=== PATIENT | female | born 1975 | race Caucasian/White ===

== ENCOUNTER → 2016-05-20 | Outpatient (CLI) | payer MEDICAID ==
[~2016-05-20] MED LIST: FLUO10CA29 PO; HYDR-3812 PO; METO-272 PO; ONDN4T PO
== END ==
LOC: PREOP 05:43
PROVIDERS: ATTEND Surgery
DX: Z01.818 Encounter for other preprocedural examination (principal); R10.13 Epigastric pain

== ENCOUNTER 2016-05-21 08:48 | Day surgery (SDC) | payer MEDICAID ==
[~2016-05-21] VITALS: Ht 160 cm; Wt 59.0 kg
[~2016-05-21 08:48] MED LIST changes: -HYDR-3812 PO; -ONDN4T PO
[2016-05-21] MEDS ORDERED: NS IV 500 ML 500 ML IV ONE (09:00)
[2016-05-21] MEDS ORDERED: NALOXONE 0.4 MG/ML 1 ML (NARCAN) VIAL IVP PRN ×2 (09:00→09:30)
[2016-05-21] MEDS ORDERED: FLUMAZENIL (ROMAZICON) 0.1 MG/ML 5 ML VIAL INJ PRN ×2 (09:00→09:30)
[2016-05-21] MEDS ORDERED: NS IV 500 ML 500 ML IV PRN (09:00)
[2016-05-21 09:23] VITALS: BP 129/88
[2016-05-21] MEDS ORDERED: MIDAZOLAM 2 MG/2 ML (VERSED) VIAL IVP PRN (09:30)
[2016-05-21] MEDS ORDERED: LIDOCAINE JELLY 2% (XYLOCAINE) 5 ML TUBE MM PRN (09:30)
[2016-05-21] MEDS ORDERED: fentaNYL INJECTION 100 MCG/2 ML AMP IVP PRN (09:30)
[2016-05-21] MEDS ORDERED: HURRICAINE EXT TUBE (BENZOCAINE) XX PRN (09:30)
[2016-05-21] MEDS ORDERED: LIDOCAINE JELLY 2% (XYLOCAINE) 5 ML TUBE ONE (10:23)
[2016-05-21] MEDS ORDERED: MIDAZOLAM 2 MG/2 ML (VERSED) VIAL ONE ×4 (10:24)
[2016-05-21] MEDS ORDERED: HURRICAINE EXT TUBE (BENZOCAINE) ONE (10:24)
[2016-05-21] MEDS ORDERED: fentaNYL INJECTION 100 MCG/2 ML AMP ONE (10:24)
[2016-05-21] MEDS: MIDAZOLAM 2 MG/2 ML (VERSED) VIAL IVP PRN ×3 (10:27→10:34)
[2016-05-21] MEDS: fentaNYL INJECTION 100 MCG/2 ML AMP IVP PRN ×2 (10:28→10:31)
--- NOTE | 2016-05-21 10:28 | Pre-Op Note & Conscious Sedat ---
Pre-Operative Progress Note H&P Reviewed The H&P was reviewed, patient examined and no changes noted. Date H&P Reviewed: May 21, 2016 Time H&P Reviewed: 10:26 Pre-Op Diagnosis: Epigastric pain Conscious Sedation Pre-Proced ASA Class: 2 Airway Mallampati Classification: ([place] appropriate class) I. II. III, IV Lungs Heart ASA score ASA 1: a normal healthy patient ASA 2: a patient with a mild systemic disease (mid diabetes, controlled hypertension, obesity ASA 3: a patient with a severe systemic disease that limits activity (angina , COPD, prior Myocardial infarction) ASA 4: a patient with an incapacitating disease that is a constant threat to life (CHF, renal failure) ASA 5: a moribund patient not expected to survive 24 hrs. (ruptured aneurysm) ASA 6: a declared brain patient whose organs are being harvested. For emergent operations, add the letter E after the classification Grade 2 Sedation Plan: Discussed options with patient/fam Note The patient is an appropriate candidate to undergo the planned procedure, sedation, and anesthesia. The patient immediately re-assessed prior to indication. SHERRI MOSER MD May 21, 2016 10:28 am
--- NOTE | 2016-05-21 10:43 | Progress Note-Post Operative ---
Post-Operative Progess Note Pre-Operative Diagnosis Epigastric pain Post-Operative Diagnosis mild distal gastritis Post-Op Procedure Note Date of Procedure: May 21, 2016 Name of Procedure: EGD with antral biopsy Anesthesia Type sedation Specimen(s) collected antral mucosa SHERRI MOSER MD May 21, 2016 10:43 am
--- NOTE | 2016-05-21 10:45 | Discharge Inst-Simple/Standard ---
Discharge Inst-Standard Discharge Medications New, Converted or Re-Newed RX: Other Patient Instructions/Follow Up Plan of Care/Instructions/FU: please call for Zofran formalin tablets every 6 hours when necessary a total of 10 with no refills.please have a report for HIDA scan next the at 745 Activity as Tolerated: Yes Discharge Diet: No Restrictions SHERRI MOSER MD May 21, 2016 10:45 am
[2016-05-21 11:10] VITALS: BP 106/69
[2016-05-21 11:40] VITALS: BP 114/75
[2016-05-21 11:48] VITALS: BP 114/75
--- NOTE | 2016-05-22 09:08 | PROCEDURE REPORT ---
PROCEDURE PHYSICIAN: SHERRI MOSER DATE OF PROCEDURE: 05/21/2016 PROCEDURE: Upper GI endoscopy with antral biopsy. SURGEON: Dr. Moser. INDICATION FOR THE PROCEDURE: This lady has been evaluated for upper abdominal pain radiating to the back, associated with nausea. As part of the work-up, an upper endoscopy was felt to be reasonable. Informed consent was obtained after reviewing the procedure in detail. DESCRIPTION OF PROCEDURE: She was placed in left lateral decubitus position and her vital signs were monitored. Conscious sedation was achieved using Versed and fentanyl. Her oropharynx was anesthetized with Cetacaine and the flexible gastroscope introduced down the esophagus, past the stomach, into the proximal duodenum. FINDINGS: ESOPHAGUS: Normal. STOMACH: Very mild distal gastritis. An antral biopsy was obtained for Helicobacter status. DUODENUM: Normal. She tolerated the procedure well and was taken back to the nursing area in stable condition. IMPRESSION: 1. Epigastric pain. 2. Mild distal gastritis. NOTE: A HIDA scan will be obtained for further evaluation. Job ID: [id number] Dictated Date: 05/21/2016 10:41:55 Furniture Packer Date: 05/22/2016 09:05:30 / maricruz NUNEZ
== END 2016-05-21 11:50 | disposition home or self-care (01) ==
LOC: SDC 08:48
PROVIDERS: ATTEND Surgery
DX: K29.70 Gastritis, unspecified, without bleeding (principal)
CPT/HCPCS: 84703

== ENCOUNTER → 2016-05-28 | Outpatient (CLI) | payer MEDICAID ==
[~2016-05-28] MED LIST changes: +CATHETER FLUSH 10 ML SYR IV PRN; +HYDR-3812 PO; +ONDN4T PO
--- NOTE | 2016-05-28 10:17 | Diagnostic Imaging Report ---
EXAMINATION: HIDA with EF measurements Indication: Abdominal pain TECHNIQUE: After the intravenous administration of 5.2 mCi of Tc 99m Choletec, imaging over the abdomen was obtained. This was followed by administration of Ensure orally to stimulate intrinsic CCK secretion, followed by continued imaging with ejection fraction measured. FINDINGS: There is homogeneous uptake in the liver with prompt bile duct and gallbladder filling seen. Bowel activity is seen at 15 minutes. Based on further imaging and gallbladder area of interest activity measurements after the administration of ensure, the gallbladder ejection fraction is estimated at 42%. IMPRESSION: 1. Normal hepatobiliary uptake and Gallbladder filling. 2. Borderline gallbladder ejection fraction. Correlate clinically. Dictated by: Dictated on workstation # [id number]
== END ==
LOC: CARD 07:25
PROVIDERS: ATTEND Nurse Practitioner Community Health
DX: R11.2 Nausea with vomiting, unspecified (principal)
CPT/HCPCS: 78227

== ENCOUNTER 2016-06-18 05:34 | Outpatient (CLI) | payer MEDICAID ==
[~2016-06-18] VITALS: Ht 160 cm; Wt 59.0 kg
[~2016-06-18 05:34] MED LIST changes: -CATHETER FLUSH 10 ML SYR IV PRN; -HYDR-3812 PO; -ONDN4T PO
[2016-06-18] MEDS ORDERED: ONDN4T PO (14:01)
[2016-06-24] MEDS ORDERED: HYDR-3812 PO (13:07)
== END 2016-06-18 14:09 ==
LOC: PREOP 05:34
PROVIDERS: ATTEND Surgery
DX: Z01.818 Encounter for other preprocedural examination (principal); K82.8 Other specified diseases of gallbladder

== ENCOUNTER 2016-06-24 10:44 | Day surgery (SDC) | payer MEDICAID ==
[~2016-06-24] VITALS: Ht 160 cm; Wt 59.0 kg
[~2016-06-24 10:44] MED LIST changes: +ONDN4T PO
[2016-06-24] MEDS ORDERED: ceFAZolin 1,000 MG (ANCEF) VIAL ONE (11:03)
[2016-06-24] MEDS ORDERED: NS (IVPB) 50 ML ONE (11:04)
[2016-06-24] MEDS ORDERED: metroNIDAZOLE 500MG/100ML IVPB 100 ML ONE (11:04)
[2016-06-24] MEDS ORDERED: ceFAZolin 1 GM/NS 50 ML IVPB IV ONE ×2 (11:15)
[2016-06-24] MEDS ORDERED: metroNIDAZOLE 500 MG/100 ML IVPB (PRE-MIX) IV ONE (11:15)
[2016-06-24] MEDS ORDERED: BUP/EPI 0.25% 1:200,000 (MARCAINE) 30 ML VIAL ONE (11:20)
--- NOTE | 2016-06-24 11:22 | Progress Note-Pre Operative ---
Pre-Operative Progress Note H&P Reviewed The H&P was reviewed, patient examined and no changes noted. Date H&P Reviewed: Jun 24, 2016 Time H&P Reviewed: 11:22 Pre-Operative Diagnosis: Chronic acalculous cholecystitis SHERRI MOSER MD Jun 24, 2016 11:22 am
[2016-06-24 11:30] VITALS: BP 119/84
[2016-06-24 11:31] LABS: BASOPHILS # (AUTO) 0.1 10^3/uL (0.0-0.1); BASOPHILS % (AUTO) 2 % (0-10); EOSINOPHILS # (AUTO) 0.3 10^3/uL (0.0-0.3); EOSINOPHILS % (AUTO) 4 % (0-10); LYMPHOCYTES # (AUTO) 1.5 X 10^3 (1.0-4.0); LYMPHOCYTES % (AUTO) 24 % (12-44); MEAN CORPUSCULAR HEMOGLOBIN 25 PG (25-34); MEAN CORPUSCULAR HGB CONC 32 G/DL (32-36); MEAN CORPUSCULAR VOLUME 78 FL (80-99); MEAN PLATELET VOLUME 9.7 FL (7.4-10.4); MONOCYTES # (AUTO) 0.5 X 10^3 (0.0-1.0); MONOCYTES % (AUTO) 8 % (0-12); NEUTROPHILS # (AUTO) 3.7 X 10^3 (1.8-7.8); NEUTROPHILS % (AUTO) 62 % (42-75); PLATELET COUNT 302 10^3/uL (130-400); RED BLOOD COUNT 4.28 10^6/uL (4.35-5.85); RED CELL DISTRIBUTION WIDTH 15.9 % (10.0-14.5)
[2016-06-24 11:49] LABS: ALANINE AMINOTRANSFERASE 13 U/L (0-55); ALBUMIN 4.3 G/DL (3.2-4.5); ANION GAP 9 MMOL/L (5-14); ASPARTATE AMINO TRANSFERASE 19 U/L (5-34); BILIRUBIN,TOTAL 0.5 MG/DL (0.1-1.0); BLOOD UREA NITROGEN 13 MG/DL (7-18); BUN/CREATININE RATIO 17; CALCIUM 8.8 MG/DL (8.5-10.1); CARBON DIOXIDE 24 MMOL/L (21-32); CHLORIDE 108 MMOL/L (98-107); CREATININE SERUM 0.75 MG/DL (0.60-1.30); GFR ESTIMATED > 60; GLUCOSE 81 MG/DL (70-105); POTASSIUM 3.9 MMOL/L (3.6-5.0); SODIUM 141 MMOL/L (135-145); TOTAL PROTEIN 6.6 G/DL (6.4-8.2)
[2016-06-24] MEDS ORDERED: FAMOTIDINE 20MG/2ML IV (PEPCID) IV ONE (12:00)
[2016-06-24] MEDS: LACTATED RINGERS 1,000 ML IV PRN ×2 (12:04→12:25)
[2016-06-24] MEDS ORDERED: fentaNYL INJECTION 250 MCG/5 ML AMP ONE (12:10)
[2016-06-24] MEDS ORDERED: MIDAZOLAM 2 MG/2 ML (VERSED) VIAL ONE (12:10)
[2016-06-24] MEDS ORDERED: ONDANSETRON 4 MG/2 ML (SDV) Z0FRAN ONE ×2 (12:46→13:31)
[2016-06-24] MEDS ORDERED: SEVOFLURANE (ULTANE) 15 ML INHAL SOLN ONE (12:46)
[2016-06-24] MEDS ORDERED: ROCURONIUM 50 MG/5 ML (ZEMURON) VIAL IV ONE (12:46)
[2016-06-24] MEDS ORDERED: SUCCINYLCHOLINE INJ 100 MG/5 ML SYR ONE (12:46)
[2016-06-24] MEDS ORDERED: proPOfol 200 MG/20 ML (DIPRIVAN) VIAL IV ONE (12:46)
[2016-06-24] MEDS ORDERED: LIDOCAINE PF 2% 10 ML (XYLOCAINE) AMP ONE (12:46)
[2016-06-24] MEDS ORDERED: LIDOCAINE JELLY 2% (XYLOCAINE) 5 ML TUBE ONE (12:46)
[2016-06-24] MEDS ORDERED: LACTATED RINGERS 1,000 ML IV ONE ×2 (12:46→12:54)
[2016-06-24] MEDS ORDERED: GLYCOPYRROLATE 0.2 MG/ML (ROBINUL) 2 ML VIAL ONE (12:54)
[2016-06-24] MEDS ORDERED: NEOSTIGMINE (BLOXIVERZ ) 1 MG/1ML 10 ML VIAL ONE (12:54)
--- NOTE | 2016-06-24 13:06 | Progress Note-Post Operative ---
Post-Operative Progess Note Pre-Operative Diagnosis Chronic acalculous cholecystitis Post-Operative Diagnosis Same Post-Op Procedure Note Date of Procedure: Jun 24, 2016 Name of Procedure: robotic-assisted cholecystectomy Anesthesia Type Gen. Estimated blood loss (mL): minimal Specimen(s) collected gallbladder SHERRI MOSER MD Jun 24, 2016 1:05 pm
[2016-06-24] MEDS ORDERED: HYDR-3812 PO (13:07)
--- NOTE | 2016-06-24 13:08 | Discharge Inst-Simple/Standard ---
Discharge Inst-Standard Discharge Medications New, Converted or Re-Newed RX: RX on Chart Patient Instructions/Follow Up Plan of Care/Instructions/FU: dressings off in 48 hours. Incentive spirometry. Follow-up in 3 weeks Activity as Tolerated: Yes Discharge Diet: No Restrictions SHERRI MOSER MD Jun 24, 2016 1:07 pm
[2016-06-24] MEDS ORDERED: ONDANSETRON 4 MG/2 ML (SDV) Z0FRAN IVP PRN (13:30)
[2016-06-24] MEDS ORDERED: MEPERIDINE (DEMEROL) INJ 50 MG/ML IVP PRN (13:30)
[2016-06-24] MEDS ORDERED: morphine INJ 10 MG/ML 1ML (SYR OR VIAL) ONE (13:30)
[2016-06-24] MEDS: morphine INJ 10 MG/ML 1ML (SYR OR VIAL) IVP PRN ×2 (13:33→13:42)
[2016-06-24] MEDS ORDERED: MEPERIDINE (DEMEROL) INJ 50 MG/ML ONE (13:46)
[2016-06-24 14:15] VITALS: BP 119/81
[2016-06-24 14:45] VITALS: BP 124/76
[2016-06-24] MEDS ORDERED: ONDANSETRON 4 MG/2 ML (SDV) Z0FRAN IVP ONE (14:45)
[2016-06-24 15:15] VITALS: BP 124/78
[2016-06-24] MEDS ORDERED: METOCLOPRAMIDE INJ 10 MG/2 ML (REGLAN) ONE (15:41)
[2016-06-24] MEDS ORDERED: METOCLOPRAMIDE INJ 10 MG/2 ML (REGLAN) IVP ONE (15:45)
[2016-06-24 16:40] VITALS: BP 124/78
--- NOTE | 2016-06-25 13:09 | OPERATIVE REPORT ---
PROCEDURE PHYSICIAN: SHERRI MOSER DATE OF PROCEDURE: 06/24/2016 PREOPERATIVE DIAGNOSIS: Chronic, acalculous cholecystitis. POSTOPERATIVE DIAGNOSIS: Chronic, acalculous cholecystitis. OPERATION: Robotic assisted cholecystectomy. SURGEON: Maurilio. ANESTHESIA: General anesthesia. BLOOD LOSS: Minimal. FLUIDS: 700 mL of crystalloids. TYPE OF WOUND: Type II (clean/contaminant wound). INDICATION FOR THE PROCEDURE: This lady presented with typical symptoms due to chronic acalculous cholecystitis. Therefore, she was offered robotic assisted cholecystectomy. Informed consent was obtained after reviewing the operative details and complications of wound infection, bile leak and persistence of her symptoms. DESCRIPTION OF PROCEDURE: She was placed supine on the operating table and general anesthesia induced using an endotracheal tube. A gram of Ancef and 500 mg of Flagyl were administered intravenously as prophylaxis against infection. Sequential compression devices were placed around her legs, to minimize the risk of venous thrombosis. Abdomen was prepared and draped in the usual sterile manner. Pneumoperitoneum was established using a Veress needle introduced over the supraumbilical region. A 12 mm trocar was placed and anatomy visualized using the 3 dimensional, high definition laparoscope associated with da Radhika system. Under direct view, I placed in the 8 mm cannula over each side of the abdomen, followed by a 5 mm trocar over the left upper quadrant. The patient was then turned into reverse Trendelenburg position with the right side tilted up. The robotic system was undocked and placed. The fundus of the gallbladder was retracted using a grasper introduced over the left upper quadrant and the infundibulum grasped with Cadiere forceps. Peritoneum overlying Calot's triangle was incised using hook cautery, delineating the cystic duct and artery. Both were divided between locking clips. Cholecystectomy was then completed using hook cautery. The gallbladder then placed in an Endo Catch bag and removed via the supraumbilical trocar site. The fascia over this incision was then closed using number 1 Vicryl. Skin incisions were closed using 4-0 Vicryl, in a subcuticular fashion. 0.25% Marcaine with epinephrine was infiltrated along the incisions, both preemptively and at the conclusion of the operation. She tolerated the procedure well, was extubated in the operating room and taken to the recovery room in a stable condition. [place], sponges, and instruments were correct at the end of the operation. Job ID: [id number] Dictated Date: 06/24/2016 13:04:45 Guitar Maker Hand Date: 06/25/2016 13:04:19 / sonia NUNEZ
== END 2016-06-24 16:40 | disposition home or self-care (01) ==
LOC: SDC 10:44
PROVIDERS: ATTEND Surgery
DX: K81.1 Chronic cholecystitis (principal); Z11.2 Encounter for screening for other bacterial diseases
CPT/HCPCS: 36415; 80053; 84703; 85025; 87081; 88304; 94664

== ENCOUNTER → 2017-04-23 | Outpatient (CLI) | payer MEDICAID ==
[~2017-04-23] MED LIST changes: +HYDR-3812 PO; -METO-272 PO; +METO-370 PO
--- NOTE | 2017-04-27 17:59 | Diagnostic Imaging Report ---
Bilateral screening mammogram 2D views with tomosynthesis. The current study was also evaluated with a Computer Aided Detection (CAD) system. INDICATION: Screening. No current complaints stated on the questionnaire. COMPARISON: None. This is a baseline exam. FINDINGS: The breasts are composed of heterogeneously dense parenchyma which may decrease mammographic sensitivity. There is a 7 mm asymmetry seen along the upper aspect of the left breast. This is only seen on the MLO view. The right breast demonstrates no definite focal mass. IMPRESSION: Dense breasts. Asymmetry in the upper left breast. Focal compression views and bilateral ultrasound evaluation is recommended. ACR BI-RADS Category 0: Incomplete. (Needs additional imaging evaluation). Result letter will be mailed to the patient. Note: At least 10% of breast cancer is not imaged by mammography. Dictated on workstation # [id number]
== END ==
LOC: RAD 15:11
PROVIDERS: ATTEND Nurse Practitioner Family
DX: Z12.31 Encounter for screening mammogram for malignant neoplasm of breast (principal)

== ENCOUNTER → 2017-06-11 | Outpatient (CLI) | payer MEDICAID ==
[~2017-06-11] MED LIST changes: +ACHD5005 PO; -HYDR-3812 PO
--- NOTE | 2017-06-11 19:25 | Diagnostic Imaging Report ---
INDICATION: Left breast density. Patient presents for additional views. Correlation is made with prior study from 04/23/2017. The current study was also evaluated with a Computer Aided Detection (CAD) system. Patient returned and spot compression MLO and conventional mediolateral 3-D mammography was performed. The left breast remains heterogeneously dense. No mass or malignant appearing microcalcifications are seen. Area of density in the superior left breast appears to represent fibroglandular tissue but further evaluation with ultrasound is recommended. IMPRESSION: No suspicious abnormality seen. Even so, ultrasound of the upper left breast is recommended for further evaluation. ACR BI-RADS Category 0: Incomplete. (Needs additional imaging evaluation). Result letter will be mailed to the patient. Note: At least 10% of breast cancer is not imaged by mammography. Dictated by: Dictated on workstation # [id number]
--- NOTE | 2017-06-11 20:23 | Diagnostic Imaging Report ---
INDICATION: Left breast density. The study is performed for further evaluation. Correlation is made with screening mammogram from 04/23/2017 and diagnostic mammogram from 06/11/2017. FINDINGS: Sonographic interrogation of the upper left breast was performed. No solid or cystic masses are detected. IMPRESSION: No sonographic abnormality is identified. The patient may return to routine annual screening mammography. ACR BI-RADS Category 1: Negative. Dictated by: Dictated on workstation # [id number]
== END ==
LOC: RAD 12:17
PROVIDERS: ATTEND Nurse Practitioner Family
DX: R92.2 Inconclusive mammogram (principal)
CPT/HCPCS: 76642

== ENCOUNTER 2017-08-13 09:28 | Emergency (ER) | payer MEDICAID ==
[~2017-08-13] VITALS: Ht 160 cm; Wt 59.4 kg
[2017-08-13 10:16] LABS: BASOPHILS # (AUTO) 0.1 10^3/uL (0.0-0.1); BASOPHILS % (AUTO) 2 % (0-10); EOSINOPHILS # (AUTO) 0.1 10^3/uL (0.0-0.3); EOSINOPHILS % (AUTO) 2 % (0-10); HEMATOCRIT 34 % (35-52); HEMOGLOBIN 10.6 G/DL (11.5-16.0); LYMPHOCYTES # (AUTO) 1.6 X 10^3 (1.0-4.0); LYMPHOCYTES % (AUTO) 22 % (12-44); MEAN CORPUSCULAR HEMOGLOBIN 23 PG (25-34); MEAN CORPUSCULAR HGB CONC 31 G/DL (32-36); MEAN CORPUSCULAR VOLUME 76 FL (80-99); MEAN PLATELET VOLUME 9.4 FL (7.4-10.4); MONOCYTES # (AUTO) 0.5 X 10^3 (0.0-1.0); MONOCYTES % (AUTO) 8 % (0-12); NEUTROPHILS # (AUTO) 4.6 X 10^3 (1.8-7.8); NEUTROPHILS % (AUTO) 66 % (42-75); PLATELET COUNT 363 10^3/uL (130-400); RED BLOOD COUNT 4.53 10^6/uL (4.35-5.85); RED CELL DISTRIBUTION WIDTH 18.2 % (10.0-14.5); WHITE BLOOD COUNT 6.9 10^3/uL (4.3-11.0)
[2017-08-13 10:33] LABS: ALANINE AMINOTRANSFERASE 12 U/L (0-55); ALBUMIN 4.4 GM/DL (3.2-4.5); ALKALINE PHOSPHATASE 69 U/L (40-136); BILIRUBIN,TOTAL 0.4 MG/DL (0.1-1.0); BUN/CREATININE RATIO 19; CARBON DIOXIDE 27 MMOL/L (21-32); CHLORIDE 108 MMOL/L (98-107); CREATININE SERUM 0.69 MG/DL (0.60-1.30); GFR ESTIMATED > 60; GLUCOSE 82 MG/DL (70-105); POTASSIUM 3.8 MMOL/L (3.6-5.0); SODIUM 142 MMOL/L (135-145); TOTAL PROTEIN 6.9 GM/DL (6.4-8.2)
[2017-08-13] MEDS ORDERED: NS IV 1000 ML 1,000 ML IV ONE (12:07)
--- NOTE | 2017-08-13 12:10 | ED GI ---
General Chief Complaint: Abdominal/GI Problems Stated Complaint: STOMACH PAIN,DIAHRREA Nursing Triage Note: PT AMBULATES TO ROOM 9 PT CO OF ABD PAIN AND CRAMPING FOR 2 WEEKS PT STATES WAS SEEN AT [facility] YESTERDAY, STATES HAD LAB AND WAS GIVEN ZANTAC AND LOMOTIL FOR DIARRHEA, PT STATES HAD 2 DIARRHEA STOOLS TODAY BUT BETTER. HAD SUDDEN ONSET OF CRAMPING ABD PAIN. 12/24. Sepsis Screen: No Definite Risk Source of Information: Patient Exam Limitations: No Limitations History of Present Illness Date Seen by Provider: Aug 13, 2017 Time Seen by Provider: 11:40 Initial Comments 42-year-old female patient presents to the emergency department complaints of periumbilical abdominal cramping and lower abdominal pain for 2 weeks. Patient was seen at the walk-in clinic at [facility] 2 weeks ago with stool cultures done. All cultures were negative. Patient was seen at [facility] yesterday and given prescriptions for Zantac and Lomotil. Labs done yesterday, but does not known the results. Timing/Duration: Constant, Other (Two-week onset) Severity/Quality: Cramping Location: Periumbilical Radiation: Other (Suprapubic) Activities at Onset: None Modifying Factors: Worsens With Other (No improvement with lomotil or Zantac) Allergies and Home Medications Allergies Coded Allergies: No Known Drug Allergies (Unverified , 05/01/16) Home Medications Ciprofloxacin HCl 500 Mg Tablet, 500 MG PO BID Prescribed by: STEFANI CLEANING on 08/13/17 1323 Fluoxetine HCl 10 Mg Capsule, 10 MG PO DAILY, (Reported) Hydrocodone Bit/Acetaminophen 1 Each Tablet, 1-2 TAB PO 4-6HR PRN for PAIN Prescribed by: SHERRI MOSER on 06/24/16 1307 Hyoscyamine Sulfate 0.125 Mg Tab.subl, 0.125 MG SL Q6H PRN for SPASMS Prescribed by: STEFANI CLEANING on 08/13/17 1323 Metoprolol Succinate 50 Mg Tab.er.24h, 50 MG PO HS, (Reported) Metronidazole 500 Mg Tablet, 500 MG PO TID Prescribed by: STEFANI CLEANING on 08/13/17 1323 Ondansetron 8 Mg Tab.rapdis, 8 MG PO Q6H PRN for NAUSEA/VOMITING-1ST LINE Prescribed by: STEFANI CLEANING on 08/13/17 1323 Ondansetron HCl 4 Mg Tab, 4 MG PO QID PRN for NAUSEA/VOMITING, (Reported) Patient Home Medication List Home Medication List Reviewed: Yes Review of Systems Constitutional: No chills, No diaphoresis, No dizziness, No fever, No malaise EENTM: No Symptoms Reported Respiratory: No Symptoms Reported Cardiovascular: No Symptoms Reported Gastrointestinal: See HPI, Denies Abdomen Distended, Abdominal Pain, Denies Blood Streaked Stools, Nausea (intermittent nausea the last 2 days), Denies Rectal Bleeding, Denies Vomiting Genitourinary: Denies Burning, Denies Discharge, Denies Frequency, Denies Flank Pain, Denies Hematuria, Denies Pain Musculoskeletal: no symptoms reported Skin: no symptoms reported Psychiatric/Neurological: No Symptoms Reported All Other Systems Reviewed Negative Unless Noted: Yes (Negative excepted noted.) Past Aarufrk-Sagdsc-Dtcoza Hx Patient Social History Alcohol Use: Denies Use Recreational Drug Use: No Smoking Status: Current Someday Smoker Type Used: Cigarettes Recent Foreign Travel: No Contact w/Someone Who Travel: No Recent Infectious Disease Expo: No Recent Hopitalizations: No Physical Abuse: No Sexual Abuse: No Immunizations Up To Date Tetanus Booster (TDap): More than 5yrs Seasonal Allergies Seasonal Allergies: No Surgeries History of Surgeries: Yes (LEEP) Surgeries: Tubal Ligation Respiratory History of Respiratory Disorde: No Currently Using CPAP: No Currently Using BIPAP: No Cardiovascular History of Cardiac Disorders: Yes Cardiac Disorders: Hypertension Neurological History of Neurological Disord: No Reproductive System : No Hx Reproductive Disorders: No (LEEP) Sexually Transmitted Disease: No HIV/AIDS: No Female Reproductive Disorders: Denies STUDY MANAGER History: Tubal Ligation Gastrointestinal History of Gastrointestinal Di: Yes Gastrointestinal Disorders: Gall Bladder Disease Musculoskeletal History of Musculoskeletal Dis: No Endocrine History of Endocrine Disorders: No HEENT Loss of Vision: Denies Hearing Impairment: Denies Cancer History of Cancer: No Psychosocial History of Psychiatric Problem: Yes Behavioral Health Disorders: Depression Suicide Risk Score: 0 Integumentary History of Skin or Integumenta: No Blood Transfusions History of Blood Disorders: No Adverse Reaction to a Blood Tr: No Reviewed Nursing Assessment Reviewed/Agree w Nursing PMH: Yes Family Medical History Significant Family History: No Pertinent Family Hx Physical Exam Vital Signs VS - Last 72 Hours, by Label 3/30/18 09:30 Temp 97.0 Pulse 83 Resp 18 B/P (MAP) 174/108 (130) Pulse Ox 99 Capillary Refill : Less Than 3 Seconds General Appearance: WD/WN, no apparent distress HEENT: PERRL/EOMI, pharynx normal Neck: supple, normal inspection Respiratory: lungs clear, normal breath sounds, no respiratory distress, no accessory muscle use Cardiovascular: normal peripheral pulses, regular rate, rhythm, no edema, no murmur Gastrointestinal: normal bowel sounds, soft, no organomegaly, No distended, guarding (weak (+) guarding in the RLQ and suprapubically.) Extremities: no pedal edema, normal capillary refill Back: normal inspection, no CVA tenderness Neurologic/Psychiatric: alert, normal mood/affect, oriented x 3 Skin: normal color, warm/dry Progress/Results/Core Measures Results/Orders Lab Results Laboratory Tests Test 08/13/17 09:40 08/13/17 10:00 Range/Units Urine Color YELLOW Urine Clarity CLEAR Urine pH 8 5-9 Urine Specific Bryant 1.010 L 1.016-1.022 Urine Protein NEGATIVE NEGATIVE Urine Glucose (UA) NEGATIVE NEGATIVE Urine Ketones NEGATIVE NEGATIVE Urine Nitrite NEGATIVE NEGATIVE Urine Bilirubin NEGATIVE NEGATIVE Urine Urobilinogen NORMAL NORMAL MG/DL Urine Leukocyte Esterase NEGATIVE NEGATIVE Urine RBC (Auto) NEGATIVE NEGATIVE Urine RBC NONE /HPF Urine WBC NONE /HPF Urine Squamous Epithelial Cells 2-5 /HPF Urine Crystals NONE /LPF Urine Bacteria TRACE /HPF Urine Casts NONE /LPF Urine Mucus NEGATIVE /LPF Urine Culture Indicated NO White Blood Count 6.9 4.3-11.0 10^3/uL Red Blood Count 4.53 4.35-5.85 10^6/uL Hemoglobin 10.6 L 11.5-16.0 G/DL Hematocrit 34 L 35-52 % Mean Corpuscular Volume 76 L 80-99 FL Mean Corpuscular Hemoglobin 23 L 25-34 PG Mean Corpuscular Hemoglobin Concent 31 L 32-36 G/DL Red Cell Distribution Width 18.2 H 10.0-14.5 % Platelet Count 363 130-400 10^3/uL Mean Platelet Volume 9.4 7.4-10.4 FL Neutrophils (%) (Auto) 66 42-75 % Lymphocytes (%) (Auto) 22 12-44 % Monocytes (%) (Auto) 8 0-12 % Eosinophils (%) (Auto) 2 0-10 % Basophils (%) (Auto) 2 0-10 % Neutrophils # (Auto) 4.6 1.8-7.8 X 10^3 Lymphocytes # (Auto) 1.6 1.0-4.0 X 10^3 Monocytes # (Auto) 0.5 0.0-1.0 X 10^3 Eosinophils # (Auto) 0.1 0.0-0.3 10^3/uL Basophils # (Auto) 0.1 0.0-0.1 10^3/uL Sodium Level 142 135-145 MMOL/L Potassium Level 3.8 3.6-5.0 MMOL/L Chloride Level 108 H 98-107 MMOL/L Carbon Dioxide Level 27 21-32 MMOL/L Anion Gap 7 5-14 MMOL/L Blood Urea Nitrogen 13 7-18 MG/DL Creatinine 0.69 0.60-1.30 MG/DL Estimat Glomerular Filtration Rate > 60 BUN/Creatinine Ratio 19 Glucose Level 82 70-105 MG/DL Calcium Level 9.0 8.5-10.1 MG/DL Total Bilirubin 0.4 0.1-1.0 MG/DL Aspartate Amino Transf (AST/SGOT) 18 5-34 U/L Alanine Aminotransferase (ALT/SGPT) 12 0-55 U/L Alkaline Phosphatase 69 40-136 U/L Total Protein 6.9 6.4-8.2 GM/DL Albumin 4.4 3.2-4.5 GM/DL Lipase 32 8-78 U/L My Orders Orders - STEFANI CLEANING Ct Abdomen/Pelvis W (08/13/17 12:07) Ns Iv 1000 Ml (Sodium Chloride 0.9%) (08/13/17 12:07) Hyoscyamine Sl Tablet (Levsin Sl Tablet) (08/13/17 12:15) Lipase (08/13/17 12:10) Ua Culture If Indicated (08/13/17 12:10) Iohexol Injection (Omnipaque 350 Mg/Ml 1 (08/13/17 12:15) Ns (Ivpb) (Sodium Chloride 0.9%) (08/13/17 12:15) Contrast Received (Contrast Received) (08/13/17 12:30) Medications Given in ED Current Medications Medications Dose Ordered Sig/Bo Route Start Time Stop Time Status Last Admin Dose Admin Hyoscyamine Sulfate 0.125 mg ONCE ONCE PO 08/13/17 12:15 08/13/17 12:16 DC 08/13/17 12:46 0.125 MG Iohexol 100 ml ONCE ONCE IV 08/13/17 12:15 08/13/17 12:17 DC 08/13/17 12:32 100 ML Sodium Chloride 250 ml ONCE ONCE IV 08/13/17 12:15 08/13/17 12:17 DC 08/13/17 12:33 80 ML Sodium Chloride 1,000 ml @ 0 mls/hr Q0M ONCE IV 08/13/17 12:07 08/13/17 12:08 DC 08/13/17 12:46 1,000 MLS/HR Vital Signs/I&O Vital Sign - Last 12Hours 08/13/17 09:30 Temp 97.0 Pulse 83 Resp 18 B/P (MAP) 174/108 (130) Pulse Ox 99 Blood Pressure Mean: 130 Diagnostic Imaging Diagonstic Imaging: CT Plain Films/CT/US/NM/MRI: abdomen, pelvis Comments INDICATION: Abdominal pain and diarrhea. COMPARISON: None. FINDINGS: The lung bases are clear. There is diffuse hepatic steatosis. No focal hepatic mass is seen. The gallbladder is not visualized. The portal vein enhances normally. There is no biliary dilatation. The pancreas, spleen, and adrenal glands appear unremarkable. There is a probable 10 mm cyst in the right kidney. The kidneys are otherwise unremarkable. The appendix appears normal. There is a moderate amount of stool in the colon. There is some mild thickening of the left colonic wall which may be due to incomplete distention, although mild colitis would be difficult to entirely exclude. There is fluid-filled nondistended small bowel. There is no evidence of bowel obstruction. The uterus and adnexa appear unremarkable. There is no free fluid, free air, or adenopathy. The abdominal aorta appears unremarkable. Osseous structures appear unremarkable. IMPRESSION: 1. There is mild thickening of the left colonic wall, which may be due to incomplete distention although mild nonspecific colitis would be difficult to entirely exclude. There is some fluid-filled nondistended small bowel, also nonspecific but could be related to an enteritis. 2. Diffuse hepatic steatosis. 3. Probable small right renal cyst. 4. No additional abnormality is demonstrated. Dictated on workstation # [id number] Reviewed: Reviewed by Me (radiology report reviewed by me) Departure Communication (Admissions) Progress Notes Laboratory and diagnostic findings discussed with the patient. We'll plan for discharge to home with instructions for Levsin, Zofran, Cipro, and metronidazole. Patient to follow-up with [facility] for recheck. Also instructed to follow-up with Dr. Adrian for possible need of colonoscopy as an outpatient. Impression Impression: Primary Impression: Acute colitis Disposition: HOME, SELF-CARE Condition: Improved Departure-Patient Inst. Decision time for Depature: 13:18 Referrals: ANGELINE HACKETT DO (PCP) Primary Care Physician NEELAM STEIN (Family) Primary Care Physician TOMMIE ADRIAN DO Patient Instructions: Diarrhea in Adolescents and Adults Add. Discharge Instructions: All discharge instructions reviewed with patient and/or family. Voiced understanding. Medications as instructed. Tylenol extra strength over-the- counter as directed for pain. Ibuprofen 800 mg by mouth every 8 hours as needed for pain. Drink plenty of fluids. Rest. Clear liquid diet for 2 days, then increase diet slowly to a low residue diet (avoid fiber containing foods). Follow-up with your primary care provider for recheck as outpatient. Follow- up with Dr. Adrian for possible need of an outpatient colonoscopy. Call for appointment time Wednesday. Return to the emergency department for worsened. Scripts Ondansetron (Ondansetron Odt) 8 Mg Tab.rapdis 8 MG PO Q6H Y for NAUSEA/VOMITING-1ST LINE, #10 TAB 0 Refills Prov: STEFANI CLEANING 08/13/17 Hyoscyamine Sulfate (Hyoscyamine Sulfate) 0.125 Mg Tab.subl 0.125 MG SL Q6H Y for SPASMS, #20 TAB 0 Refills Prov: STEFANI CLEANING 08/13/17 Metronidazole (Metronidazole) 500 Mg Tablet 500 MG PO TID, #21 TAB 0 Refills Prov: STEFANI CLEANING 08/13/17 Ciprofloxacin HCl (Ciprofloxacin HCl) 500 Mg Tablet 500 MG PO BID, #14 TAB 0 Refills Prov: STEFANI CLEANING 08/13/17 Work/School Note: Work Release Form Date Seen in the Emergency Department: Aug 13, 2017 Return to Work: Aug 15, 2017 STEFANI CLEANING Aug 13, 2017 12:10
[2017-08-13] MEDS ORDERED: NS 250 ML (IVPB) BAG IV ONE (12:15)
[2017-08-13] MEDS ORDERED: IOHEXOL 350 MG/ML 100 ML (OMNIPAQUE 350) VIAL IV ONE (12:15)
[2017-08-13] MEDS ORDERED: HYOSCYAMINE 0.125 MG (LEVSIN) TAB PO ONE (12:15)
[2017-08-13 12:22] LABS: BILIRUBIN,URINE NEGATIVE (NEGATIVE); CLARITY,URINE CLEAR; COLOR,URINE YELLOW; GLUCOSE, URINE (UA) NEGATIVE (NEGATIVE); KETONES,URINE NEGATIVE (NEGATIVE); LEUKOCYTE ESTERASE ,URINE NEGATIVE (NEGATIVE); NITRITE,URINE NEGATIVE (NEGATIVE); PH,URINE 8 (5-9); PROTEIN,URINE NEGATIVE (NEGATIVE); UROBILINOGEN,URINE NORMAL (NORMAL)
[2017-08-13 12:29] LABS: BACTERIA,URINE TRACE /HPF
[2017-08-13] MEDS ORDERED: RECEIVED CONTRAST (Hold Metformin) IV SCH (12:30)
--- NOTE | 2017-08-13 13:00 | Diagnostic Imaging Report ---
PROCEDURE: CT abdomen and pelvis with contrast. TECHNIQUE: Multiple contiguous axial images were obtained through the abdomen and pelvis after administration of intravenous contrast. INDICATION: Abdominal pain and diarrhea. COMPARISON: None. FINDINGS: The lung bases are clear. There is diffuse hepatic steatosis. No focal hepatic mass is seen. The gallbladder is not visualized. The portal vein enhances normally. There is no biliary dilatation. The pancreas, spleen, and adrenal glands appear unremarkable. There is a probable 10 mm cyst in the right kidney. The kidneys are otherwise unremarkable. The appendix appears normal. There is a moderate amount of stool in the colon. There is some mild thickening of the left colonic wall which may be due to incomplete distention, although mild colitis would be difficult to entirely exclude. There is fluid-filled nondistended small bowel. There is no evidence of bowel obstruction. The uterus and adnexa appear unremarkable. There is no free fluid, free air, or adenopathy. The abdominal aorta appears unremarkable. Osseous structures appear unremarkable. IMPRESSION: 1. There is mild thickening of the left colonic wall, which may be due to incomplete distention although mild nonspecific colitis would be difficult to entirely exclude. There is some fluid-filled nondistended small bowel, also nonspecific but could be related to an enteritis. 2. Diffuse hepatic steatosis. 3. Probable small right renal cyst. 4. No additional abnormality is demonstrated. Dictated by: Dictated on workstation # [id number]
[2017-08-13] MEDS ORDERED: ONDA8TAB13 PO (13:23)
[2017-08-13] MEDS ORDERED: CIPR500T4 PO (13:23)
[2017-08-13] MEDS ORDERED: METR500T21 PO (13:23)
[2017-08-13] MEDS ORDERED: HYOS-19 SL (13:23)
[2017-08-13 13:57] VITALS: BP 174/108
== END 2017-08-13 13:47 | disposition home or self-care (01) ==
LOC: EDUNIT# 09:28 → ER 09:31
DX: K52.9 Noninfective gastroenteritis and colitis, unspecified (principal); I10 Essential (primary) hypertension; F32.9 Major depressive disorder, single episode, unspecified; F17.210 Nicotine dependence, cigarettes, uncomplicated; Z98.51 Tubal ligation status; Z87.448 Personal history of other diseases of urinary system
CPT/HCPCS: 36415; 74177; 80053; 81000; 83690; 85025; 96360

== ENCOUNTER 2017-12-21 07:30 | Emergency (ER) | payer MEDICAID ==
[~2017-12-21] VITALS: Ht 160 cm; Wt 59.0 kg
[~2017-12-21 07:30] MED LIST changes: +CIPR500T4 PO; +HYOS-19 SL; +METR500T21 PO; +ONDA8TAB13 PO
--- OUTSIDE RECORDS SUMMARY | 2017-12-21 07:40 | XMS REPORT ---
Author Author NEELAM STEIN [facility] Address [address] [place] [address] Care Team Providers Care Ribbon Cutter Name Role Phone NEELAM STEIN Unavailable PROBLEMS Type Condition ICD9-CM Code LUG09-GC Code Onset Dates Condition Status SNOMED Code Problem Fatigue, unspecified type R53.83 Active 45219508 Problem Esophageal spasm K22.4 Active 49987378 Problem Encounter to establish care Z76.89 Active 175731520 Problem Family history of diabetes mellitus Z83.3 Active 030872865 Problem Essential hypertension I10 Active 62287847 Problem Depression, unspecified depression type F32.9 Active 48659950 Problem Shantelle F30.9 Active 388069492 Problem Intestinal malabsorption, unspecified K90.9 Active 11432184 Problem Gastroesophageal reflux disease without esophagitis K21.9 Active 714868893 Problem Status post cholecystectomy Z90.49 Active 638660985 Problem Anxiety F41.9 Active 91856167 Problem Abnormal mammogram of left breast R92.8 Active 476852728 ALLERGIES No Information ENCOUNTERS Encounter Location Date Diagnosis [place] [address] [place] [address] 26149- 5088 Nov, Depression, unspecified depression type F32.9 [facility] [address] [place] [address] 83984- 9420 Aug, Depression, unspecified depression type F32.9 [facility] [address] [place] [id number] [place] [address] 81158- 5644 Aug, Colitis K52.9 and Shantelle F30.9 [place] [address] [place] [address] 81649- 8296 Aug, Intestinal malabsorption, unspecified K90.9 [place] [address] 12127- 9801 Jul, Intestinal malabsorption, unspecified K90.9 ; Diarrhea, unspecified R19.7 ; Anxiety F41.9 and Tobacco abuse Z72.0 [place] [address] 65796- 9494 Jul, [facility] [address] [id number] Jul, Diarrhea, unspecified type R19.7 [facility] [address] [address] Jul, Diarrhea, unspecified type R19.7 [facility] [address] [id number] May, Abnormal mammogram of left breast R92.[address] [id number] Apr, Abnormal mammogram of left breast R92.8 [facility] [address] [id number] Apr, [facility] [place] [place] [address] [id number] 04 Apr, 2017 Well woman exam with routine gynecological exam Z01.419 ; Screening breast examination Z12.31 ; High risk sexual behavior Z72.51 ; History of loop electrical excision procedure (LEEP) Z98.890 and History of abnormal cervical Pap smear Z87.898 [place] [address] 31167- 5331 15 Mar, 2017 Essential hypertension I10 [place] [address] 42640- 2966 13 Jan, 2017 Essential hypertension I10 and Family history of diabetes mellitus (DM) Z83.3 [place] [address] 93002- 6312 14 Jul, 2016 Gastroesophageal reflux disease without esophagitis K21.9 [place] [address] 21979- 2120 Jul, Status post cholecystectomy Z90.49 ; Essential hypertension I10 and Depression, unspecified depression type F32.9 [facility] [address] [place] [address] 15011- 6288 Jun, [facility] [address] [place] [address] 85104- 4934 Jun, Essential hypertension I10 [facility] [address] [place] [id number] [place] [address] 93214- 9130 Jun, [facility] [address] [place] [address] [id number] [place] [address] 87350- 1216 May, [facility] [address] [place] [address] [id number] [place] [address] 37943- 5161 Apr, [facility] [address] [place] [address] [id number] [place] [address] 22426- 9544 Apr, Other chest pain R07.89 ; Intractable vomiting with nausea, unspecified vomiting type R11.2 and Yeast vaginitis B37.3 [facility] [address] [place] [address] 71843- 8387 Apr, Other chest pain R07.89 [facility] [address] [place] [id number] [place] [address] 23781- 8037 Apr, Other chest pain R07.89 [facility]ALK [facility] [address] [place] [address] 13532 -0561 Apr, Bronchitis J40 [facility] [address] [place] [address] 05761- 8213 Dec, Essential hypertension I10 and Depression, unspecified depression type F32.9 [facility] [id number] [place] [address] [id number] Nov, Fatigue, unspecified type R53.83 and Essential hypertension I10 [facility] [address] [place] [address] 78332- 7964 Nov, Pelvic pain R10.2 and Menorrhagia with irregular cycle N92.1 [place] [address] [address] 07 Nov, 2015 Encounter to establish care Z76.89 ; Essential hypertension I10 ; Depression, unspecified depression type F32.9 ; Fatigue, unspecified type R53.83 and Family history of diabetes mellitus Z83.3 [place] [address] [address] Oct, Menorrhagia with irregular cycle N92.1 [place] [address] [place] [id number] [place] [address] 55770- 6699 September, Pelvic pain R10.2 and Menorrhagia with irregular cycle N92.1 [place] [address] [place] [address] 78163- 4373 September, Pelvic pain R10.2 and Menorrhagia with irregular cycle N92.1 [place] [address] [place] [address] 40835- 0771 Aug, Menorrhagia with irregular cycle N92.1 and Pelvic pain R10.2 IMMUNIZATIONS No Known Immunizations SOCIAL HISTORY Never Assessed REASON FOR VISIT medication question PLAN OF CARE VITAL SIGNS MEDICATIONS Medication Instructions Dosage Frequency Start Date End Date Duration Status Prozac 20 MG Orally Once a day 1 capsule in the morning 24h Aug, 30 day(s) Active RESULTS No Results PROCEDURES No Known procedures INSTRUCTIONS MEDICATIONS ADMINISTERED No Known Medications MEDICAL (GENERAL) HISTORY Type Description Date Medical History Hypertension Medical History Depression Medical History 04/28/17 Dense breast tissue, asymmetry inthe upper left breast, US recommended. Surgical History LEEP procedure Surgical History Tubal ligation Surgical History cholecystectomy 06/2016 Hospitalization History oral abcess
--- OUTSIDE RECORDS SUMMARY | 2017-12-21 07:41 | XMS REPORT ---
Author Author SHRUTHI BLANK [facility] Address [address] [place] [address] Care Team Providers Care Sql Programmer Analyst Name Role Phone SHRUTHI BLANK Unavailable PROBLEMS Type Condition ICD9-CM Code IWX00-BZ Code Onset Dates Condition Status SNOMED Code Problem Fatigue, unspecified type R53.83 Active 91945163 Problem Esophageal spasm K22.4 Active 34981250 Problem Encounter to establish care Z76.89 Active 631049826 Problem Family history of diabetes mellitus Z83.3 Active 972437018 Problem Essential hypertension I10 Active 38009742 Problem Depression, unspecified depression type F32.9 Active 03466960 Problem Shantelle F30.9 Active 534889835 Problem Intestinal malabsorption, unspecified K90.9 Active 04548831 Problem Gastroesophageal reflux disease without esophagitis K21.9 Active 296413815 Problem Status post cholecystectomy Z90.49 Active 482317659 Problem Anxiety F41.9 Active 24015268 Problem Abnormal mammogram of left breast R92.8 Active 526330436 ALLERGIES No Known Allergies ENCOUNTERS Encounter Location Date Diagnosis [place] [address] [place] [address] 91387- 8178 Nov, Depression, unspecified depression type F32.9 [facility] [address] [place] [address] 34403- 7396 Aug, Depression, unspecified depression type F32.9 [facility] [address] [place] [id number] [place] [address] 33299- 8723 Aug, Colitis K52.9 and Shantelle F30.9 [facility] [address] [address] Aug, Intestinal malabsorption, unspecified K90.9 [place] [address] [place] [address] [address]07[address] 8078 Jul, Intestinal malabsorption, unspecified K90.9 ; Diarrhea, unspecified R19.7 ; Anxiety F41.9 and Tobacco abuse Z72.0 [place] [address] 54470- 9721 Jul, [facility] [address] [id number] Jul, Diarrhea, unspecified type R19.7 [facility] [address] 8[address]14 [address]1826 Jul, Diarrhea, unspecified type R19.7 [facility] [place] [place] [address] [id number] May, Abnormal mammogram of left breast R92.[address] [id number] Apr, Abnormal mammogram of left breast R92.8 [facility] [address] [id number] Apr, [facility] [address] [id number] 04 Apr, 2017 Well woman exam with routine gynecological exam Z01.419 ; Screening breast examination Z12.31 ; High risk sexual behavior Z72.51 ; History of loop electrical excision procedure (LEEP) Z98.890 and History of abnormal cervical Pap smear Z87.898 [place] [address] 88750- 3126 15 Mar, 2017 Essential hypertension I10 [place] [address] 41322- 8484 13 Jan, 2017 Essential hypertension I10 and Family history of diabetes mellitus (DM) Z83.3 [place] [address] 62502- 3747 14 Jul, 2016 Gastroesophageal reflux disease without esophagitis K21.9 [place] [address] 46631- 7703 Jul, Status post cholecystectomy Z90.49 ; Essential hypertension I10 and Depression, unspecified depression type F32.9 [facility] [address] [place] [address] 18575- 4849 Jun, [facility] [address] [id number] [place] [address] 68685- 3109 Jun, Essential hypertension I10 [facility] [address] [place] [id number] [place] [address] 54882- 8340 Jun, [facility] [address] [place] [id number] [place] [address] 62932- 3963 May, [facility] [address] [place] [id number] [place] [address] 67225- 2833 Apr, [facility] [address] [place] [id number] [place] [address] 20621- 3092 Apr, Other chest pain R07.89 ; Intractable vomiting with nausea, unspecified vomiting type R11.2 and Yeast vaginitis B37.3 [facility] [address] [place] [address] 22281- 5664 Apr, Other chest pain R07.89 [facility] [address] [place] [address] [id number] [place] [address] 66695- 1364 Apr, Other chest pain R07.[address] [facility] WALK IN [facility] [address] [place] [address] 69414 -9516 Apr, Bronchitis J40 [facility] [address] [place] [address] 71544- 3303 Dec, Essential hypertension I10 and Depression, unspecified depression type F32.9 [facility] [id number] [place] [id number] Nov, Fatigue, unspecified type R53.83 and Essential hypertension I10 [facility] [address] [place] [address] 35421- 1019 Nov, Pelvic pain R10.2 and Menorrhagia with irregular cycle N92.1 [place] [address] [address] 07 Nov, 2015 Encounter to establish care Z76.89 ; Essential hypertension I10 ; Depression, unspecified depression type F32.9 ; Fatigue, unspecified type R53.83 and Family history of diabetes mellitus Z83.3 [place] [address] [address] Oct, Menorrhagia with irregular cycle N92.1 [place] [address] [place] [address] [id number] [place] [address] 22185- 9832 September, Pelvic pain R10.2 and Menorrhagia with irregular cycle N92.1 [place] [address] [place] [address] 05316- 5271 September, Pelvic pain R10.2 and Menorrhagia with irregular cycle N92.1 [place] [address] [place] [address] [id number] [place] [address] 14509- 4928 Aug, Menorrhagia with irregular cycle N92.1 and Pelvic pain R10.2 IMMUNIZATIONS No Known Immunizations SOCIAL HISTORY Never Assessed REASON FOR VISIT Diarrhea for 5 days. denies any vomiting. [email or web address] PLAN OF CARE Activity Details Follow Up prn Reason: VITAL SIGNS Height 63 in 2017-08-02 Weight 132.4 lbs 2017-08-02 Temperature 98.6 degrees Fahrenheit 2017-08-02 Heart Rate 74 bpm 2017-08-02 Respiratory Rate 20 2017-08-02 BMI 23.45 kg/m2 2017-08-02 Blood pressure systolic 136 mmHg 2017-08-02 Blood pressure diastolic 80 mmHg 2017-08-02 MEDICATIONS Medication Instructions Dosage Frequency Start Date End Date Duration Status Toprol XL 50 MG TAKE ONE (1) TABLET BY MOUTH DAILY... 90 Active Ondansetron 4 MG Orally every 8 hrs 1 tablet on the tongue and allow to dissolve 8h 05 days Not-Taking Zantac 150 MG Orally twice a day 1 tablet 12h 14 Jul, 2016 30 day(s) Not-Taking Prozac 10 mg Orally Once a day 1 capsule in the morning 24h Active RESULTS No Results PROCEDURES No Known procedures INSTRUCTIONS MEDICATIONS ADMINISTERED No Known Medications MEDICAL (GENERAL) HISTORY Type Description Date Medical History Hypertension Medical History Depression Medical History 04/28/17 Dense breast tissue, asymmetry inthe upper left breast, US recommended. Surgical History LEEP procedure Surgical History Tubal ligation Surgical History cholecystectomy 06/2016 Hospitalization History oral abcess
--- OUTSIDE RECORDS SUMMARY | 2017-12-21 07:41 | XMS REPORT ---
Author Author NEELAM STEIN [facility] Address [address] [place] [address] Care Team Providers Care Rectangular Tank Cooper Name Role Phone NEELAM STEIN Unavailable PROBLEMS Type Condition ICD9-CM Code KCR18-DF Code Onset Dates Condition Status SNOMED Code Problem Fatigue, unspecified type R53.83 Active 65318385 Problem Esophageal spasm K22.4 Active 53997826 Problem Encounter to establish care Z76.89 Active 196724680 Problem Family history of diabetes mellitus Z83.3 Active 900508111 Problem Essential hypertension I10 Active 92830473 Problem Depression, unspecified depression type F32.9 Active 79015879 Problem Shantelle F30.9 Active 827151377 Problem Intestinal malabsorption, unspecified K90.9 Active 05531250 Problem Gastroesophageal reflux disease without esophagitis K21.9 Active 948816304 Problem Status post cholecystectomy Z90.49 Active 748322964 Problem Anxiety F41.9 Active 00385803 Problem Abnormal mammogram of left breast R92.8 Active 066616049 ALLERGIES No Information ENCOUNTERS Encounter Location Date Diagnosis [place] [address] [place] [address] 23959- 5812 Nov, Depression, unspecified depression type F32.9 [facility] [address] [place] [address] 67951- 2589 Aug, Depression, unspecified depression type F32.9 [facility] [address] [place] [id number] [place] [address] 08066- 1887 Aug, Colitis K52.9 and Shantelle F30.9 [place] [address] [place] [address] 70350- 4104 Aug, Intestinal malabsorption, unspecified K90.9 [place] [address] 51951- 5010 Jul, Intestinal malabsorption, unspecified K90.9 ; Diarrhea, unspecified R19.7 ; Anxiety F41.9 and Tobacco abuse Z72.0 [place] [address] [address]10- 4213 Jul, [facility] [address] [id number] Jul, Diarrhea, unspecified type R19.7 [facility] [address] 89753 -8471 Jul, Diarrhea, unspecified type R19.7 [facility] [address] [id number] May, Abnormal mammogram of left breast R92.[address] [id number] Apr, Abnormal mammogram of left breast R92.8 [facility] [address] [id number] Apr, [facility] [address] [id number] 04 Apr, 2017 Well woman exam with routine gynecological exam Z01.419 ; Screening breast examination Z12.31 ; High risk sexual behavior Z72.51 ; History of loop electrical excision procedure (LEEP) Z98.890 and History of abnormal cervical Pap smear Z87.898 [place] [address] 90803- 9861 15 Mar, 2017 Essential hypertension I10 [place] [address] 00916- 5464 13 Jan, 2017 Essential hypertension I10 and Family history of diabetes mellitus (DM) Z83.3 [place] [address] 31395- 3929 14 Jul, 2016 Gastroesophageal reflux disease without esophagitis K21.9 [place] [address] 40231- 2239 Jul, Status post cholecystectomy Z90.49 ; Essential hypertension I10 and Depression, unspecified depression type F32.9 [facility] [address] [place] [address] 14887- 2312 Jun, [facility] [address] [place] [address] 58733- 0969 Jun, Essential hypertension I10 [facility] [address] [place] [address] [id number] [place] [address] 05993- 2927 Jun, [facility] [address] [place] [address] [id number] [place] [address] 14158- 1038 May, [facility] [address] [place] [address] [id number] [place] [address] 43858- 9887 Apr, [facility] [address] [place] [address] [id number] [place] [address] 43847- 8997 Apr, Other chest pain R07.89 ; Intractable vomiting with nausea, unspecified vomiting type R11.2 and Yeast vaginitis B37.3 [facility] [address] [place] [address] 23554- 5602 Apr, Other chest pain R07.89 [facility] [address] [place] [id number] [place] [address] 42625- 4162 Apr, Other chest pain R07.89 [facility] WALK IN [facility] [address] [place] [address] 61338 -1927 Apr, Bronchitis J40 [facility] [address] [place] [address] 35979- 5402 Dec, Essential hypertension I10 and Depression, unspecified depression type F32.9 [facility] [id number] [place] [address] [id number] Nov, Fatigue, unspecified type R53.83 and Essential hypertension I10 [facility] [address] [place] [address] 03891- 8436 Nov, Pelvic pain R10.2 and Menorrhagia with irregular cycle N92.1 [place] [address] [place] [id number] [address] 07 Nov, 2015 Encounter to establish care Z76.89 ; Essential hypertension I10 ; Depression, unspecified depression type F32.9 ; Fatigue, unspecified type R53.83 and Family history of diabetes mellitus Z83.3 [place] [address] [address] Oct, Menorrhagia with irregular cycle N92.1 [place] [address] [place] [id number] [place] [address] 00695- 2225 September, Pelvic pain R10.2 and Menorrhagia with irregular cycle N92.1 [place] [address] [place] [address] 04349- 3760 September, Pelvic pain R10.2 and Menorrhagia with irregular cycle N92.1 [place] [address] [place] [address] 17334- 5564 Aug, Menorrhagia with irregular cycle N92.1 and Pelvic pain R10.2 IMMUNIZATIONS No Known Immunizations SOCIAL HISTORY Never Assessed REASON FOR VISIT Rx change per Insurance PLAN OF CARE VITAL SIGNS MEDICATIONS Medication Instructions Dosage Frequency Start Date End Date Duration Status Prevalite 4 GM/DOSE Orally Twice a day 1 scoop 12h Aug, 10 days Active RESULTS No Results PROCEDURES No Known procedures INSTRUCTIONS MEDICATIONS ADMINISTERED No Known Medications MEDICAL (GENERAL) HISTORY Type Description Date Medical History Hypertension Medical History Depression Medical History 04/28/17 Dense breast tissue, asymmetry inthe upper left breast, US recommended. Surgical History LEEP procedure Surgical History Tubal ligation Surgical History cholecystectomy 06/2016 Hospitalization History oral abcess
--- OUTSIDE RECORDS SUMMARY | 2017-12-21 07:41 | XMS REPORT ---
Author Author NELEAM STEIN Organization [employer] Address Unknown Phone Unavailable Care Team Providers Care Project Control Manager Name Role Phone NEELAM STEIN CP Unavailable Allergies No Known Allergies Problems Problem Type Condition Code Onset Dates Condition Status Problem Essential hypertension I10 Active Problem Depression, unspecified depression type F32.9 Active Problem Encounter to establish care Z76.89 Active Assessment Fatigue, unspecified type R53.83 Active Assessment Essential hypertension I10 Active Problem Fatigue, unspecified type R53.83 Active Problem Family history of diabetes mellitus Z83.3 Active Medications No Known Medications Procedures Procedure Coding System Code Date LIPID PANEL CPT-4 52642 December 02, 2015 COMPREHEN METABOLIC PANEL CPT-4 44415 December 02, 2015 ASSAY THYROID STIM HORMONE CPT-4 33602 December 02, 2015 VENIPUNCT, ROUTINE* CPT-4 76638 December 02, 2015 Results No Known Results Summary Purpose [employer] Submission
--- OUTSIDE RECORDS SUMMARY | 2017-12-21 07:41 | XMS REPORT ---
Author Author NEELAM STEIN Organization [facility] Address [address] [place] [address] Care Team Providers Care Box Sealing Inspector Name Role Phone NEELAM STEIN Unavailable PROBLEMS Type Condition ICD9-CM Code AVE13-DT Code Onset Dates Condition Status SNOMED Code Problem Family history of diabetes mellitus Z83.3 Active 481898894 Problem Essential hypertension I10 Active 10490014 Problem Gastroesophageal reflux disease without esophagitis K21.9 Active 580970997 Problem Status post cholecystectomy Z90.49 Active 360428809 Problem Fatigue, unspecified type R53.83 Active 62685525 Problem Depression, unspecified depression type F32.9 Active 77150401 Problem Esophageal spasm K22.4 Active 32156498 Problem Encounter to establish care Z76.89 Active 867135106 ALLERGIES No Information SOCIAL HISTORY Never Assessed PLAN OF CARE VITAL SIGNS MEDICATIONS Medication Instructions Dosage Frequency Start Date End Date Duration Status Ondansetron 4 MG Orally every 8 hrs 1 tablet on the tongue and allow to dissolve 8h Jun, 05 days Active RESULTS No Results PROCEDURES No Known procedures IMMUNIZATIONS No Known Immunizations MEDICAL (GENERAL) HISTORY Type Description Date Medical History Hypertension Medical History Depression Surgical History LEEP procedure Surgical History Tubal ligation Surgical History cholecystectomy 06/2016 Hospitalization History oral abcess
--- OUTSIDE RECORDS SUMMARY | 2017-12-21 07:41 | XMS REPORT ---
Author Author NEELAM STEIN [facility] eClinicalWorks Address Unknown Phone Unavailable Care Team Providers Care Electrotyper Apprentice Name Role Phone NEELAM STEIN CP Unavailable Allergies, Adverse Reactions, Alerts Substance Reaction Event Type N.K.D.A. Info Not Available Non Drug Allergy Problems Problem Type Condition Code Onset Dates Condition Status Assessment Family history of diabetes mellitus Z83.3 Active Assessment Depression, unspecified depression type F32.9 Active Assessment Fatigue, unspecified type R53.83 Active Problem Essential hypertension I10 Active Problem Depression, unspecified depression type F32.9 Active Problem Encounter to establish care Z76.89 Active Assessment Encounter to establish care Z76.89 Active Assessment Essential hypertension I10 Active Problem Fatigue, unspecified type R53.83 Active Problem Family history of diabetes mellitus Z83.3 Active Medications Medication Code System Code Instructions Start Date End Date Status Dosage Toprol XL [facility] [address]-23 50 mg Orally Once a day November 21, 2015 1 tablet Prozac [facility] [address]-76 10 MG Orally Once a day 1 capsule in the morning Procedures Procedure Coding System Code Date Office Visit, New Pt., Level 3 CPT-4 96454 November 21, 2015 GLYCATED HEMOGLOBIN TEST CPT-4 68569 November 21, 2015 Vital Signs Date/Time: November 21, 2015 Cardiac Monitoring Heart Rate 80 bpm Weight 128 lbs Height 63 in BMI 22.67 Index Blood Pressure Diastolic 80 mmHg Blood Pressure Systolic 110 mmHg Results No Known Results Summary Purpose eClinicalWorks Submission
--- OUTSIDE RECORDS SUMMARY | 2017-12-21 07:41 | XMS REPORT ---
Author Author SHERI CANNON [facility] Address [address] [place] [address] Care Team Providers Care Television Antenna Installer Name Role Phone SHERI CANNON Unavailable PROBLEMS Type Condition ICD9-CM Code WBX42-HK Code Onset Dates Condition Status SNOMED Code Problem Fatigue, unspecified type R53.83 Active 34958438 Problem Esophageal spasm K22.4 Active 61954808 Problem Encounter to establish care Z76.89 Active 250752153 Problem Family history of diabetes mellitus Z83.3 Active 641358799 Problem Essential hypertension I10 Active 25595566 Problem Depression, unspecified depression type F32.9 Active 93547152 Problem Shantelle F30.9 Active 904633260 Problem Intestinal malabsorption, unspecified K90.9 Active 35998811 Problem Gastroesophageal reflux disease without esophagitis K21.9 Active 636750784 Problem Status post cholecystectomy Z90.49 Active 630520320 Problem Anxiety F41.9 Active 58063820 Problem Abnormal mammogram of left breast R92.8 Active 949871209 ALLERGIES No Information ENCOUNTERS Encounter Location Date Diagnosis [place] [id number] [place] [address] 76525- 4756 Nov, [place] [id number] [place] [address] 07794- 0082 Aug, Depression, unspecified depression type F32.9 [place] [id number] [place] [address] 73837- 3924 Aug, Colitis K52.9 and Shantelle F30.9 [place] [id number] [place] [address] 85136- 6411 Aug, Intestinal malabsorption, unspecified K90.9 [place] [id number] [place] [address] 43834- 8193 Jul, Intestinal malabsorption, unspecified K90.9 ; Diarrhea, unspecified R19.7 ; Anxiety F41.9 and Tobacco abuse Z72.0 [place] [id number] [place] [address] 05759- 4600 Jul, [facility] [id number] [place] [address] [phone] Jul, Diarrhea, unspecified type R19.7 [facility] [id number] [place] [address] 26744 -3880 Jul, Diarrhea, unspecified type R19.7 [facility] [place] [address] [id number] May, Abnormal mammogram of left breast R92.8 [place] [id number] [place] [address] [phone] Apr, Abnormal mammogram of left breast R92.8 [place] [id number] [place] [address] [id number] Apr, [facility] [id number] [place] [address] [id number] 04 Apr, 2017 Well woman exam with routine gynecological exam Z01.419 ; Screening breast examination Z12.31 ; High risk sexual behavior Z72.51 ; History of loop electrical excision procedure (LEEP) Z98.890 and History of abnormal cervical Pap smear Z87.898 [place] [id number] [place] [address] 18270- 8471 15 Mar, 2017 Essential hypertension I10 [place] [id number] [place] [address] 29333- 9792 13 Jan, 2017 Essential hypertension I10 and Family history of diabetes mellitus (DM) Z83.3 [place] [address] 13676- 2891 14 Jul, 2016 Gastroesophageal reflux disease without esophagitis K21.9 [place] [address] 17383- 5529 08 Jul, 2016 Status post cholecystectomy Z90.49 ; Essential hypertension I10 and Depression, unspecified depression type F32.9 [facility] [address] [address] Jun, [facility] [address] [place] [address] 60425- 2335 Jun, Essential hypertension I10 [facility] [address] [place] [address] 61929- 0251 Jun, [facility] [address] [place] [address] 74443- 0729 May, [facility] [id number] [place] [address] 20096- 4936 Apr, [place] [id number] [place] [address] 57633- 2288 Apr, Other chest pain R07.89 ; Intractable vomiting with nausea, unspecified vomiting type R11.2 and Yeast vaginitis B37.3 [facility] [address] [place] [address] 11387- 2752 Apr, Other chest pain R07.89 [place] [id number] [place] [address] 22937- 4684 Apr, Other chest pain R07.89 [facility] [address] [place] [address] 43416 -8857 Apr, Bronchitis J40 [facility] [address] [place] [address] 60151- 5374 Dec, Essential hypertension I10 and Depression, unspecified depression type F32.9 [facility] [id number] [id number] Nov, Fatigue, unspecified type R53.83 and Essential hypertension I10 [facility] [address] [place] [address] 37208- 9734 Nov, Pelvic pain R10.2 and Menorrhagia with irregular cycle N92.1 [place] [id number] [address] 07 Nov, 2015 Encounter to establish care Z76.89 ; Essential hypertension I10 ; Depression, unspecified depression type F32.9 ; Fatigue, unspecified type R53.83 and Family history of diabetes mellitus Z83.3 [place] [address] [place] [address] 33834- 3700 Oct, Menorrhagia with irregular cycle N92.1 [place] [id number] [place] [address] 56877- 1851 September, Pelvic pain R10.2 and Menorrhagia with irregular cycle N92.1 [place] [id number] [place] [address] 45844- 0096 September, Pelvic pain R10.2 and Menorrhagia with irregular cycle N92.1 [place] [address] [place] [address] 54348- 0246 Aug, Menorrhagia with irregular cycle N92.1 and Pelvic pain R10.2 IMMUNIZATIONS No Known Immunizations SOCIAL HISTORY Never Assessed REASON FOR VISIT new imaging order PLAN OF CARE VITAL SIGNS MEDICATIONS Unknown Medications RESULTS Name Result Date Reference Range Mammogram Dx, Left 2017-06-11 PROCEDURES No Known procedures INSTRUCTIONS MEDICATIONS ADMINISTERED No Known Medications MEDICAL (GENERAL) HISTORY Type Description Date Medical History Hypertension Medical History Depression Medical History 04/28/17 Dense breast tissue, asymmetry inthe upper left breast, US recommended. Surgical History LEEP procedure Surgical History Tubal ligation Surgical History cholecystectomy 06/2016 Hospitalization History oral abcess
--- OUTSIDE RECORDS SUMMARY | 2017-12-21 07:41 | XMS REPORT ---
Author Author SHRUTHI BLANK [facility] Address [address] [place] [address] Care Team Providers Care Pharmacy Consultant Name Role Phone SHRUTHI BLANK Unavailable PROBLEMS Type Condition ICD9-CM Code AEE75-WQ Code Onset Dates Condition Status SNOMED Code Problem Fatigue, unspecified type R53.83 Active 60390914 Problem Esophageal spasm K22.4 Active 49933282 Problem Encounter to establish care Z76.89 Active 717811375 Problem Family history of diabetes mellitus Z83.3 Active 306549700 Problem Essential hypertension I10 Active 50052569 Problem Depression, unspecified depression type F32.9 Active 88173635 Problem Shantelle F30.9 Active 784072749 Problem Intestinal malabsorption, unspecified K90.9 Active 72665342 Problem Gastroesophageal reflux disease without esophagitis K21.9 Active 304225505 Problem Status post cholecystectomy Z90.49 Active 135980794 Problem Anxiety F41.9 Active 53361712 Problem Abnormal mammogram of left breast R92.8 Active 534042706 ALLERGIES No Information ENCOUNTERS Encounter Location Date Diagnosis [place] [address] [place] [address] 59782- 9191 Nov, Depression, unspecified depression type F32.9 [place] [address] [place] [address] 54274- 4933 Aug, Depression, unspecified depression type F32.9 [place] [address] [place] [id number] [place] [address] 64870- 3867 Aug, Colitis K52.9 and Shantelle F30.9 [place] [address] [place] [address] 00614- 3885 Aug, Intestinal malabsorption, unspecified K90.9 [place] [address] [place] [address] 58590- 9596 Jul, Intestinal malabsorption, unspecified K90.9 ; Diarrhea, unspecified R19.7 ; Anxiety F41.9 and Tobacco abuse Z72.0 [place] [address] 20584- 0829 Jul, [facility] [id number] [place] [address] [phone] Jul, Diarrhea, unspecified type R19.7 [facility] [address] [address]64 -8695 Jul, Diarrhea, unspecified type R19.7 [facility] [address] [id number] May, Abnormal mammogram of left breast R92.[address] [id number] Apr, Abnormal mammogram of left breast R92.[address] [id number] Apr, [address] [id number] 04 Apr, 2017 Well woman exam with routine gynecological exam Z01.419 ; Screening breast examination Z12.31 ; High risk sexual behavior Z72.51 ; History of loop electrical excision procedure (LEEP) Z98.890 and History of abnormal cervical Pap smear Z87.898 [place] [id number] [place] [address] 08344- 6181 15 Mar, 2017 Essential hypertension I10 [place] [address] 11188- 2939 13 Jan, 2017 Essential hypertension I10 and Family history of diabetes mellitus (DM) Z83.3 [place] [address] 95249- 0715 14 Jul, 2016 Gastroesophageal reflux disease without esophagitis K21.9 [place] [address] 97151- 8947 Jul, Status post cholecystectomy Z90.49 ; Essential hypertension I10 and Depression, unspecified depression type F32.9 [facility] [address] [place] [address] 79746- 6780 Jun, [facility] [id number] [place] [address] 00220- 3925 Jun, Essential hypertension I10 [facility] [id number] [place] [address] 91118- 3273 Jun, [facility] [id number] [place] [address] 72337- 4030 May, [facility] [id number] [place] [address] 16514- 8978 Apr, [facility] [id number] [place] [address] 27744- 0170 Apr, Other chest pain R07.89 ; Intractable vomiting with nausea, unspecified vomiting type R11.2 and Yeast vaginitis B37.3 [facility] [address] [place] [address] 91948- 8970 Apr, Other chest pain R07.89 [facility] [id number] [place] [address] 65020- 9919 Apr, Other chest pain R07.89 [facility] [address] [place] [address] 82934 -3790 Apr, Bronchitis J40 [facility] [address] [place] [address] 44852- 5385 Dec, Essential hypertension I10 and Depression, unspecified depression type F32.9 [facility] [id number] [place] [address] [id number] Nov, Fatigue, unspecified type R53.83 and Essential hypertension I10 [facility] [address] [place] [address] 51818- 2300 Nov, Pelvic pain R10.2 and Menorrhagia with irregular cycle N92.1 [place] [address] [address]- [address] Nov, Encounter to establish care Z76.89 ; Essential hypertension I10 ; Depression, unspecified depression type F32.9 ; Fatigue, unspecified type R53.83 and Family history of diabetes mellitus Z83.3 [place] [address] [address]- 2782 Oct, Menorrhagia with irregular cycle N92.1 [place] [id number] [place] [address] 89546- 5072 September, Pelvic pain R10.2 and Menorrhagia with irregular cycle N92.1 [place] [address] [place] [address] 15258- 6983 September, Pelvic pain R10.2 and Menorrhagia with irregular cycle N92.1 [place] [address] [place] [address] 69140- 8250 Aug, Menorrhagia with irregular cycle N92.1 and Pelvic pain R10.2 IMMUNIZATIONS No Known Immunizations SOCIAL HISTORY Never Assessed REASON FOR VISIT Lab results PLAN OF CARE VITAL SIGNS MEDICATIONS No Known Medications RESULTS No Results PROCEDURES No Known procedures INSTRUCTIONS MEDICATIONS ADMINISTERED No Known Medications MEDICAL (GENERAL) HISTORY Type Description Date Medical History Hypertension Medical History Depression Medical History 04/28/17 Dense breast tissue, asymmetry inthe upper left breast, US recommended. Surgical History LEEP procedure Surgical History Tubal ligation Surgical History cholecystectomy 06/2016 Hospitalization History oral abcess
--- OUTSIDE RECORDS SUMMARY | 2017-12-21 07:41 | XMS REPORT ---
Author Author ELVIRA LE [facility] eClinicalWorks Address Unknown Phone Unavailable Care Team Providers Care Revenue Investigator Name Role Phone ELVIRA LE CP Unavailable Allergies No Known Allergies Problems Problem Type Condition Code Onset Dates Condition Status Problem Essential hypertension I10 Active Problem Depression, unspecified depression type F32.9 Active Problem Encounter to establish care Z76.89 Active Assessment Pelvic pain R10.2 Active Assessment Menorrhagia with irregular cycle N92.1 Active Problem Fatigue, unspecified type R53.83 Active Problem Family history of diabetes mellitus Z83.3 Active Medications No Known Medications Results No Known Results Summary Purpose eClinicalWorks Submission
--- OUTSIDE RECORDS SUMMARY | 2017-12-21 07:41 | XMS REPORT ---
Author Author SHRUTHI BLANK [facility] IN [facility] Address [address] [place] [address] Care Team Providers Care Digital Field Service Technician Name Role Phone SHRUTHI BLANK Unavailable PROBLEMS Type Condition ICD9-CM Code [id number]-QD Code Onset Dates Condition Status SNOMED Code Problem Fatigue, unspecified type R53.83 Active 81497953 Problem Esophageal spasm K22.4 Active 73192339 Problem Encounter to establish care Z76.89 Active 642826477 Problem Family history of diabetes mellitus Z83.3 Active 812472837 Problem Essential hypertension I10 Active 56741147 Problem Depression, unspecified depression type F32.9 Active 10713523 Problem Shantelle F30.9 Active 821198608 Problem Intestinal malabsorption, unspecified K90.9 Active 00819505 Problem Gastroesophageal reflux disease without esophagitis K21.9 Active 068742164 Problem Status post cholecystectomy Z90.49 Active 360321535 Problem Anxiety F41.9 Active 15273050 Problem Abnormal mammogram of left breast R92.8 Active 395616359 ALLERGIES No Information ENCOUNTERS Encounter Location Date Diagnosis [place] [address] [address] [place] [address]68[address] 8156 Nov, Depression, unspecified depression type F32.9 [place] [address] [place] [address] 25613- 4230 Aug, Depression, unspecified depression type F32.9 [place] [address] [place] [id number] [place] [address] 89022- 6489 Aug, Colitis K52.9 and Shantelle F30.9 [place] [address] [place] [address] 93597- 9908 Aug, Intestinal malabsorption, unspecified K90.9 [place] [address] [place] [address] 47267[address] 8848 Jul, Intestinal malabsorption, unspecified K90.9 ; Diarrhea, unspecified R19.7 ; Anxiety F41.9 and Tobacco abuse Z72.0 [place] [address] [address] Jul, [facility] [address] [place] [id number] [place] [phone] Jul, Diarrhea, unspecified type R19.7 [facility] [address] [address] Jul, Diarrhea, unspecified type R19.7 [facility] [place] [address] [id number] May, Abnormal mammogram of left breast R92.[address] [id number] Apr, Abnormal mammogram of left breast R92.[address] [id number] Apr, [address] [id number] 04 Apr, 2017 Well woman exam with routine gynecological exam Z01.419 ; Screening breast examination Z12.31 ; High risk sexual behavior Z72.51 ; History of loop electrical excision procedure (LEEP) Z98.890 and History of abnormal cervical Pap smear Z87.898 [place] [address] [place] [id number] [place] [address] 92653- 5740 15 Mar, 2017 Essential hypertension I10 [place] [address] 36377[address] 8347 13 Jan, 2017 Essential hypertension I10 and Family history of diabetes mellitus (DM) Z83.3 [place] [address] 34904- 8393 14 Jul, 2016 Gastroesophageal reflux disease without esophagitis K21.9 [place] [address] 83822- 7420 Jul, Status post cholecystectomy Z90.49 ; Essential hypertension I10 and Depression, unspecified depression type F32.9 [facility] [address] [place] [address] 64116- 2353 Jun, [facility] [address] [place] [id number] [place] [address] 95181- 1582 Jun, Essential hypertension I10 [facility] [address] [place] [id number] [place] [address] 05227- 2470 Jun, [facility] [address] [place] [id number] [place] [address] 91881- 7040 May, [facility] [address] [place] [id number] [place] [address] 28775- 7172 Apr, [facility] [address] [place] [id number] [place] [address] 97838- 4674 Apr, Other chest pain R07.89 ; Intractable vomiting with nausea, unspecified vomiting type R11.2 and Yeast vaginitis B37.3 [facility] [address] [place] [address] 33195- 0200 Apr, Other chest pain R07.89 [facility] [address] [place] [id number] [place] [address] 42100- 3594 Apr, Other chest pain R07.89 [facility] [address] [place] [address] 19047 -[phone] Apr, Bronchitis J40 [facility] [address] [place] [address] 71164- 7618 Dec, Essential hypertension I10 and Depression, unspecified depression type F32.9 [facility] [id number] [place] [id number] Nov, Fatigue, unspecified type R53.83 and Essential hypertension I10 [facility] [address] [place] [address] 72446- 6880 Nov, Pelvic pain R10.2 and Menorrhagia with irregular cycle N92.1 [place] [address] [place] [id number] [address] 07 Nov, 2015 Encounter to establish care Z76.89 ; Essential hypertension I10 ; Depression, unspecified depression type F32.9 ; Fatigue, unspecified type R53.83 and Family history of diabetes mellitus Z83.3 [place] [address] [address] Oct, Menorrhagia with irregular cycle N92.1 [place] [address] [place] [id number] [place] [address] 73318- 4497 September, Pelvic pain R10.2 and Menorrhagia with irregular cycle N92.1 [place] [address] [place] [address] 61637- 2567 September, Pelvic pain R10.2 and Menorrhagia with irregular cycle N92.1 [place] [address] [place] [address] 77565- 1629 Aug, Menorrhagia with irregular cycle N92.1 and Pelvic pain R10.2 IMMUNIZATIONS No Known Immunizations SOCIAL HISTORY Never Assessed REASON FOR VISIT Lab (walk-in) [facility] PLAN OF CARE VITAL SIGNS MEDICATIONS No Known Medications RESULTS No Results PROCEDURES Procedure Date Ordered Result Body Site LAB NOT BILLED BY [facility] August 02, 2017 INSTRUCTIONS MEDICATIONS ADMINISTERED No Known Medications MEDICAL (GENERAL) HISTORY Type Description Date Medical History Hypertension Medical History Depression Medical History 04/28/17 Dense breast tissue, asymmetry inthe upper left breast, US recommended. Surgical History LEEP procedure Surgical History Tubal ligation Surgical History cholecystectomy 06/2016 Hospitalization History oral abcess
--- OUTSIDE RECORDS SUMMARY | 2017-12-21 07:42 | XMS REPORT ---
Author Author NEELAM STEIN [facility] Address [address] [place] [address] Care Team Providers Care Glycerin Supervisor Name Role Phone NEELAM STEIN Unavailable PROBLEMS Type Condition ICD9-CM Code NBI15-TX Code Onset Dates Condition Status SNOMED Code Problem Family history of diabetes mellitus Z83.3 Active 270464605 Problem Essential hypertension I10 Active 17793949 Problem Gastroesophageal reflux disease without esophagitis K21.9 Active 322200779 Problem Status post cholecystectomy Z90.49 Active 842121038 Problem Fatigue, unspecified type R53.83 Active 10424405 Problem Depression, unspecified depression type F32.9 Active 65988210 Problem Esophageal spasm K22.4 Active 83677007 Problem Encounter to establish care Z76.89 Active 836585230 ALLERGIES Unknown Allergies SOCIAL HISTORY No smoking Hx information available PLAN OF CARE VITAL SIGNS MEDICATIONS Medication Instructions Dosage Frequency Start Date End Date Duration Status Toprol XL 50 mg Orally Once a day 1 tablet 24h Nov, Active RESULTS No Results PROCEDURES No Known procedures IMMUNIZATIONS No Known Immunizations
--- OUTSIDE RECORDS SUMMARY | 2017-12-21 07:42 | XMS REPORT ---
Author Author NEELAM STEIN [facility] Address [address] [place] [address] Care Team Providers Care Supervisor Rides Name Role Phone NEELAM STEIN Unavailable PROBLEMS Type Condition ICD9-CM Code FAX19-CL Code Onset Dates Condition Status SNOMED Code Problem Family history of diabetes mellitus Z83.3 Active 208337572 Problem Essential hypertension I10 Active 74210954 Problem Gastroesophageal reflux disease without esophagitis K21.9 Active 231062018 Problem Status post cholecystectomy Z90.49 Active 243663488 Problem Fatigue, unspecified type R53.83 Active 92935108 Problem Depression, unspecified depression type F32.9 Active 63974272 Problem Esophageal spasm K22.4 Active 72932727 Problem Encounter to establish care Z76.89 Active 535851433 ALLERGIES No Information SOCIAL HISTORY Never Assessed PLAN OF CARE VITAL SIGNS MEDICATIONS Medication Instructions Dosage Frequency Start Date End Date Duration Status Zantac 150 MG Orally twice a day 1 tablet 12h 14 Jul, 2016 30 day(s) Active RESULTS No Results PROCEDURES No Known procedures IMMUNIZATIONS No Known Immunizations MEDICAL (GENERAL) HISTORY Type Description Date Medical History Hypertension Medical History Depression Surgical History LEEP procedure Surgical History Tubal ligation Surgical History cholecystectomy 06/2016 Hospitalization History oral abcess
--- OUTSIDE RECORDS SUMMARY | 2017-12-21 07:42 | XMS REPORT ---
Author Author NEELAM STEIN [facility] Address [address] [place] [address] Care Team Providers Care Net Trainer Name Role Phone NEELAM STEIN Unavailable PROBLEMS Type Condition ICD9-CM Code LBM06-BE Code Onset Dates Condition Status SNOMED Code Problem Fatigue, unspecified type R53.83 Active 02695020 Problem Family history of diabetes mellitus Z83.3 Active 251108970 Problem Gastroesophageal reflux disease without esophagitis K21.9 Active 888640336 Problem Status post cholecystectomy Z90.49 Active 856677917 Problem Essential hypertension I10 Active 31604736 Problem Depression, unspecified depression type F32.9 Active 44278492 Problem Esophageal spasm K22.4 Active 16085272 Problem Encounter to establish care Z76.89 Active 708284855 ALLERGIES Unknown Allergies SOCIAL HISTORY No smoking Hx information available PLAN OF CARE VITAL SIGNS MEDICATIONS Medication Instructions Dosage Frequency Start Date End Date Duration Status Isosorbide Mononitrate 1 Orally Once a day 30mg 24h Apr, 30 day (s) Active RESULTS No Results PROCEDURES No Known procedures IMMUNIZATIONS No Known Immunizations
--- OUTSIDE RECORDS SUMMARY | 2017-12-21 07:42 | XMS REPORT ---
Author Author NEELAM STEIN Organization [facility] Address [address] [place] [address] Care Team Providers Care Dj Instructor Name Role Phone NEELAM STEIN Unavailable PROBLEMS Type Condition ICD9-CM Code JYC44-ES Code Onset Dates Condition Status SNOMED Code Problem Fatigue, unspecified type R53.83 Active 88947919 Problem Esophageal spasm K22.4 Active 41683171 Problem Encounter to establish care Z76.89 Active 238868366 Problem Family history of diabetes mellitus Z83.3 Active 464137584 Problem Essential hypertension I10 Active 37905308 Problem Depression, unspecified depression type F32.9 Active 94387561 Problem Shantelle F30.9 Active 351576404 Problem Intestinal malabsorption, unspecified K90.9 Active 21638588 Problem Gastroesophageal reflux disease without esophagitis K21.9 Active 995875515 Problem Status post cholecystectomy Z90.49 Active 475303692 Problem Anxiety F41.9 Active 63934346 Problem Abnormal mammogram of left breast R92.8 Active 982574795 ALLERGIES No Information ENCOUNTERS Encounter Location Date Diagnosis [place] [address] [place] [address] 67801- 0502 Aug, Depression, unspecified depression type F32.9 [facility] [address] [place] [address] 89452- 9162 Aug, Colitis K52.9 and Shantelle F30.9 [place] [address] [place] [address] 88960- 4259 Aug, Intestinal malabsorption, unspecified K90.9 [place] [address] [place] [address] 41476- 1137 Jul, Intestinal malabsorption, unspecified K90.9 ; Diarrhea, unspecified R19.7 ; Anxiety F41.9 and Tobacco abuse Z72.0 [place] [address] [address]- [address]684 Jul, [facility] [address] [id number] Jul, Diarrhea, unspecified type R19.7 [facility] [address] [address] Jul, Diarrhea, unspecified type R19.7 [facility] [place] [address] [id number] May, Abnormal mammogram of left breast R92.8 [facility] [address] [id number] Apr, Abnormal mammogram of left breast R92.8 [facility] [address] [id number] Apr, [facility] [address] [id number] 04 Apr, 2017 Well woman exam with routine gynecological exam Z01.419 ; Screening breast examination Z12.31 ; High risk sexual behavior Z72.51 ; History of loop electrical excision procedure (LEEP) Z98.890 and History of abnormal cervical Pap smear Z87.898 [place] [address] 95952- 8885 15 Mar, 2017 Essential hypertension I10 [place] [address] 41049- 7856 13 Jan, 2017 Essential hypertension I10 and Family history of diabetes mellitus (DM) Z83.3 [place] [address] 80685- 8977 14 Jul, 2016 Gastroesophageal reflux disease without esophagitis K21.9 [place] [address] 14831- [address] 08 Jul, 2016 Status post cholecystectomy Z90.49 ; Essential hypertension I10 and Depression, unspecified depression type F32.9 [place] [address] 98382- 8702 Jun, [facility] [address] [place] [id number] [place] [address] 48257- 2097 Jun, Essential hypertension I10 [facility] [address] [place] [id number] [place] [address] 60630- 5878 Jun, [facility] [address] [place] [id number] [place] [address] 44910- 6585 May, [facility] [address] 50208- 8400 Apr, [facility] [address] 69623- 6152 Apr, Other chest pain R07.89 ; Intractable vomiting with nausea, unspecified vomiting type R11.2 and Yeast vaginitis B37.3 [facility] [address] [place] [id number] [place] [address] 53987- 7009 Apr, Other chest pain R07.89 [facility] [address] [place] [id number] [place] [address] 60763- 1888 Apr, Other chest pain R07.89 [facility] [address] [place] [id number] [place] [address] 10197 -[phone] Apr, Bronchitis J40 [facility] [address] [place] [id number] [place] [address] 47313- 9641 Dec, Essential hypertension I10 and Depression, unspecified depression type F32.9 [facility] [address] [place] [id number] [place] [address] [id number] Nov, Fatigue, unspecified type R53.83 and Essential hypertension I10 [facility] [address] [id number] [place] [address] 13023- 5504 Nov, Pelvic pain R10.2 and Menorrhagia with irregular cycle N92.1 [facility] [address] [id number] [place] [address] 12357- 3949 Nov, Encounter to establish care Z76.89 ; Essential hypertension I10 ; Depression, unspecified depression type F32.9 ; Fatigue, unspecified type R53.83 and Family history of diabetes mellitus Z83.3 [place] [address], [place] [address] Oct, Menorrhagia with irregular cycle N92.1 [place] [address] [place] [id number] [place] [address] 48479- 0614 September, Pelvic pain R10.2 and Menorrhagia with irregular cycle N92.1 [place] [address] [address] September, Pelvic pain R10.2 and Menorrhagia with irregular cycle N92.1 [place] [address], [place] [address] 4705 Aug, Menorrhagia with irregular cycle N92.1 and Pelvic pain R10.2 IMMUNIZATIONS No Known Immunizations SOCIAL HISTORY Never Assessed REASON FOR VISIT Order request/LVM PLAN OF CARE VITAL SIGNS MEDICATIONS Unknown Medications RESULTS No Results PROCEDURES No Known procedures INSTRUCTIONS MEDICATIONS ADMINISTERED No Known Medications MEDICAL (GENERAL) HISTORY Type Description Date Medical History Hypertension Medical History Depression Medical History 04/28/17 Dense breast tissue, asymmetry inthe upper left breast, US recommended. Surgical History LEEP procedure Surgical History Tubal ligation Surgical History cholecystectomy 06/2016 Hospitalization History oral abcess
--- OUTSIDE RECORDS SUMMARY | 2017-12-21 07:42 | XMS REPORT ---
Author Author NEELAM STEIN Organization [facility] Address [address] [place] [address] Care Team Providers Care Underground Miner Name Role Phone NEELAM STEIN Unavailable PROBLEMS Type Condition ICD9-CM Code CBS99-BQ Code Onset Dates Condition Status SNOMED Code Problem Family history of diabetes mellitus Z83.3 Active 227728099 Problem Essential hypertension I10 Active 91423636 Problem Gastroesophageal reflux disease without esophagitis K21.9 Active 167540000 Problem Status post cholecystectomy Z90.49 Active 570322833 Problem Fatigue, unspecified type R53.83 Active 57139406 Problem Depression, unspecified depression type F32.9 Active 19042152 Problem Esophageal spasm K22.4 Active 02057081 Problem Encounter to establish care Z76.89 Active 657065361 ALLERGIES No Known Allergies SOCIAL HISTORY Never Assessed PLAN OF CARE Activity Details Follow Up 6 Months Reason:BP and fasting labs VITAL SIGNS Height 63 in 2016-07-22 Weight 126.6 lbs 2016-07-22 Temperature 98.3 degrees Fahrenheit 2016-07-22 Heart Rate 72 bpm 2016-07-22 Respiratory Rate 18 2016-07-22 BMI 22.42 kg/m2 2016-07-22 Blood pressure systolic 110 mmHg 2016-07-22 Blood pressure diastolic 76 mmHg 2016-07-22 MEDICATIONS Medication Instructions Dosage Frequency Start Date End Date Duration Status Ondansetron 4 MG Orally every 8 hrs 1 tablet on the tongue and allow to dissolve 8h 05 days Active Prozac 10 mg Orally Once a day 1 capsule in the morning 24h Active Toprol XL 50 mg Orally Once a day 1 tablet 24h Nov, Active RESULTS No Results PROCEDURES No Known procedures IMMUNIZATIONS No Known Immunizations MEDICAL (GENERAL) HISTORY Type Description Date Medical History Hypertension Medical History Depression Surgical History LEEP procedure Surgical History Tubal ligation Surgical History cholecystectomy 06/2016 Hospitalization History oral abcess
--- OUTSIDE RECORDS SUMMARY | 2017-12-21 07:42 | XMS REPORT ---
Author Author NEELAM STEIN [facility] Address [address] [place] [address] Care Team Providers Care Dental Floss Packer Name Role Phone NEELAM STEIN Unavailable PROBLEMS Type Condition ICD9-CM Code PHH95-VI Code Onset Dates Condition Status SNOMED Code Problem Family history of diabetes mellitus Z83.3 Active 533376261 Problem Essential hypertension I10 Active 11440028 Problem Gastroesophageal reflux disease without esophagitis K21.9 Active 326346756 Problem Status post cholecystectomy Z90.49 Active 585429640 Problem Fatigue, unspecified type R53.83 Active 75412663 Problem Depression, unspecified depression type F32.9 Active 61588386 Problem Esophageal spasm K22.4 Active 50605558 Problem Encounter to establish care Z76.89 Active 305824473 ALLERGIES Unknown Allergies SOCIAL HISTORY No smoking Hx information available PLAN OF CARE VITAL SIGNS MEDICATIONS Medication Instructions Dosage Frequency Start Date End Date Duration Status Ondansetron 4 MG Orally every 8 hrs 1 tablet on the tongue and allow to dissolve 8h 10 days Active RESULTS No Results PROCEDURES No Known procedures IMMUNIZATIONS No Known Immunizations
--- OUTSIDE RECORDS SUMMARY | 2017-12-21 07:42 | XMS REPORT ---
Author Author NEELAM STEIN Organization [facility] Address [address] [place] [address] Care Team Providers Care Desk Monitor Name Role Phone NEELAM STEIN Unavailable PROBLEMS Type Condition ICD9-CM Code KAN29-RH Code Onset Dates Condition Status SNOMED Code Problem Fatigue, unspecified type R53.83 Active 25980100 Problem Esophageal spasm K22.4 Active 99243076 Problem Encounter to establish care Z76.89 Active 427482351 Problem Family history of diabetes mellitus Z83.3 Active 564653590 Problem Essential hypertension I10 Active 68618290 Problem Depression, unspecified depression type F32.9 Active 91014190 Problem Shantelle F30.9 Active 534384462 Problem Intestinal malabsorption, unspecified K90.9 Active 62836580 Problem Gastroesophageal reflux disease without esophagitis K21.9 Active 129196737 Problem Status post cholecystectomy Z90.49 Active 951190354 Problem Anxiety F41.9 Active 17396312 Problem Abnormal mammogram of left breast R92.8 Active 618780778 ALLERGIES No Known Allergies ENCOUNTERS Encounter Location Date Diagnosis [place] [address] [place] [address]4719- 8780 Nov, [place] [address] [place] [id number] [place] [address] 81029- 0218 Aug, Depression, unspecified depression type F32.9 [place] [address] [place] [id number] [place] [address] 00698- 0700 Aug, Colitis K52.9 and Shantelle F30.9 [place] [address] [place] [address] 69903- 8786 Aug, Intestinal malabsorption, unspecified K90.9 [place] [address] [place] [id number] [place] [address] 14963- 2495 Jul, Intestinal malabsorption, unspecified K90.9 ; Diarrhea, unspecified R19.7 ; Anxiety F41.9 and Tobacco abuse Z72.0 [place] [address] [address] Jul, [facility] [address] [place] [id number] [place] [phone] Jul, Diarrhea, unspecified type R19.7 [facility] [address] [address] Jul, Diarrhea, unspecified type R19.7 [facility] [address] [id number] May, Abnormal mammogram of left breast R92.8 [facility] [address] [id number] Apr, Abnormal mammogram of left breast R92.8 [facility] [address] [id number] Apr, [facility] [address] [place] [id number] [place] [id number] 04 Apr, 2017 Well woman exam with routine gynecological exam Z01.419 ; Screening breast examination Z12.31 ; High risk sexual behavior Z72.51 ; History of loop electrical excision procedure (LEEP) Z98.890 and History of abnormal cervical Pap smear Z87.[address] [address] 15 Mar, 2017 Essential hypertension I10 [place] [address] [address]34- [address] 13 Jan, 2017 Essential hypertension I10 and Family history of diabetes mellitus (DM) Z83.3 [place] [address] [address]67- 9685 14 Jul, 2016 Gastroesophageal reflux disease without esophagitis K21.9 [place] [address] 14279- 1785 08 Jul, 2016 Status post cholecystectomy Z90.49 ; Essential hypertension I10 and Depression, unspecified depression type F32.9 [facility] [address] [place] [address] 12815- 2181 Jun, [facility] [address] [place] [id number] [place] [address] 30019- 3935 Jun, Essential hypertension I10 [place] [address] [place] [id number] [place] [address] 87770- 7752 Jun, [facility] [address] [place] [address] [id number] [place] [address] 46925- 7468 May, [facility] [address] [place] [id number] [place] [address] 11333- 3352 Apr, [place] [address] [place] [id number] [place] [address] 68900- 3735 Apr, Other chest pain R07.89 ; Intractable vomiting with nausea, unspecified vomiting type R11.2 and Yeast vaginitis B37.3 [facility] [address] [place] [address] [id number] [place] [address] 64716- 6233 Apr, Other chest pain R07.89 [place] [address] [place] [id number] [place] [address] 68241- 9360 Apr, Other chest pain R07.89 [facility] [address] [place] [address] 37759 -1669 Apr, Bronchitis J40 [facility] [address] [place] [address] 67694- 6818 Dec, Essential hypertension I10 and Depression, unspecified depression type F32.9 [facility] [id number] [place] [address] [id number] Nov, Fatigue, unspecified type R53.83 and Essential hypertension I10 [place] [address] [place] [address] 16673- 7735 Nov, Pelvic pain R10.2 and Menorrhagia with irregular cycle N92.1 [place] [address] [address] Nov, Encounter to establish care Z76.89 ; Essential hypertension I10 ; Depression, unspecified depression type F32.9 ; Fatigue, unspecified type R53.83 and Family history of diabetes mellitus Z83.3 [place] [address] [address] Oct, Menorrhagia with irregular cycle N92.1 [place] [address] [place] [id number] [place] [address] 49715- 7923 September, Pelvic pain R10.2 and Menorrhagia with irregular cycle N92.1 [place] [address] [place] [id number] [place] [address] 27500- 4623 September, Pelvic pain R10.2 and Menorrhagia with irregular cycle N92.1 [place] [address] [place] [address] 88785- 2029 Aug, Menorrhagia with irregular cycle N92.1 and Pelvic pain R10.2 IMMUNIZATIONS No Known Immunizations SOCIAL HISTORY Never Assessed REASON FOR VISIT Blood pressure, PT has a spot on her scalp that she has a concerns with-uBddy PAEZ PLAN OF CARE Activity Details Follow Up 6 Months Reason:BP VITAL SIGNS Height 63 in 2017-03-31 Weight 131.4 lbs 2017-03-31 Temperature 98.2 degrees Fahrenheit 2017-03-31 Heart Rate 76 bpm 2017-03-31 Respiratory Rate 18 2017-03-31 BMI 23.27 kg/m2 2017-03-31 Blood pressure systolic 134 mmHg 2017-03-31 Blood pressure diastolic 78 mmHg 2017-03-31 MEDICATIONS Medication Instructions Dosage Frequency Start Date End Date Duration Status Zantac 150 MG Orally twice a day 1 tablet 12h Jul, 30 day(s) Active Prozac 10 mg Orally Once a day 1 capsule in the morning 24h Active Toprol XL 50 mg Orally Once a day 1 tablet 24h Nov, 30 Active Ondansetron 4 MG Orally every 8 hrs 1 tablet on the tongue and allow to dissolve 8h 05 days Not-Taking RESULTS No Results PROCEDURES No Known procedures INSTRUCTIONS MEDICATIONS ADMINISTERED No Known Medications MEDICAL (GENERAL) HISTORY Type Description Date Medical History Hypertension Medical History Depression Medical History 04/28/17 Dense breast tissue, asymmetry inthe upper left breast, US recommended. Surgical History LEEP procedure Surgical History Tubal ligation Surgical History cholecystectomy 06/2016 Hospitalization History oral abcess
--- OUTSIDE RECORDS SUMMARY | 2017-12-21 07:42 | XMS REPORT ---
Author Author NEELAM STEIN [facility] Address [address] [place] [address] Care Team Providers Care Ceramics Engineer Name Role Phone NEELAM STEIN Unavailable PROBLEMS Type Condition ICD9-CM Code QPG96-EQ Code Onset Dates Condition Status SNOMED Code Problem Family history of diabetes mellitus Z83.3 Active 987814297 Problem Essential hypertension I10 Active 10933968 Problem Gastroesophageal reflux disease without esophagitis K21.9 Active 074354747 Problem Status post cholecystectomy Z90.49 Active 986398630 Problem Fatigue, unspecified type R53.83 Active 08655210 Problem Depression, unspecified depression type F32.9 Active 87653182 Problem Esophageal spasm K22.4 Active 35431656 Problem Encounter to establish care Z76.89 Active 893060060 ALLERGIES No Information SOCIAL HISTORY Never Assessed PLAN OF CARE VITAL SIGNS MEDICATIONS Unknown Medications RESULTS No Results PROCEDURES No Known procedures IMMUNIZATIONS No Known Immunizations MEDICAL (GENERAL) HISTORY Type Description Date Medical History Hypertension Medical History Depression Surgical History LEEP procedure Surgical History Tubal ligation Surgical History cholecystectomy 06/2016 Hospitalization History oral abcess
--- OUTSIDE RECORDS SUMMARY | 2017-12-21 07:42 | XMS REPORT ---
Author Author SHERI CANNON [facility] Address [address] [place] [address] Care Team Providers Care Nurses Supervisor Name Role Phone SHERI CANNON Unavailable PROBLEMS Type Condition ICD9-CM Code FHO87-JN Code Onset Dates Condition Status SNOMED Code Problem Fatigue, unspecified type R53.83 Active 11976642 Problem Esophageal spasm K22.4 Active 10698772 Problem Encounter to establish care Z76.89 Active 579233838 Problem Family history of diabetes mellitus Z83.3 Active 918842419 Problem Essential hypertension I10 Active 26361478 Problem Depression, unspecified depression type F32.9 Active 84781031 Problem Shantelle F30.9 Active 570566141 Problem Intestinal malabsorption, unspecified K90.9 Active 78504055 Problem Gastroesophageal reflux disease without esophagitis K21.9 Active 956488796 Problem Status post cholecystectomy Z90.49 Active 730540377 Problem Anxiety F41.9 Active 13589673 Problem Abnormal mammogram of left breast R92.8 Active 733818611 ALLERGIES No Known Allergies ENCOUNTERS Encounter Location Date Diagnosis [place] [address] [place] [address] 40190- 3583 Nov, [place] [address] [place] [id number] [place] [address] 11322- 4933 Aug, Depression, unspecified depression type F32.9 [place] [address] [place] [id number] [place] [address] 03936- 4363 Aug, Colitis K52.9 and Shantelle F30.9 [place] [address] [address] Aug, Intestinal malabsorption, unspecified K90.9 [place] [address] [place] [id number] [place] [address] 87542- 9702 Jul, Intestinal malabsorption, unspecified K90.9 ; Diarrhea, unspecified R19.7 ; Anxiety F41.9 and Tobacco abuse Z72.0 [place] [address] 30643- 7882 Jul, [facility] [address] [place] [id number] [place] [id number] Jul, Diarrhea, unspecified type R19.7 [facility] [address] [place] [id number] [place] [address] 93233 -7841 Jul, Diarrhea, unspecified type R19.7 [facility] [address] [id number] May, Abnormal mammogram of left breast R92.[address] [id number] Apr, Abnormal mammogram of left breast R92.[address] [id number] Apr, [facility] [address] [address] [id number] [place] [address] [id number] 04 Apr, 2017 Well woman exam with routine gynecological exam Z01.419 ; Screening breast examination Z12.31 ; High risk sexual behavior Z72.51 ; History of loop electrical excision procedure (LEEP) Z98.890 and History of abnormal cervical Pap smear Z87.898 [place] [address] [place] [id number] [place] [address] 99365- 0077 15 Mar, 2017 Essential hypertension I10 [place] [address] [place] [id number] [place] [address] 28876- 0588 13 Jan, 2017 Essential hypertension I10 and Family history of diabetes mellitus (DM) Z83.3 [place] [address] [address]36- 4565 14 Jul, 2016 Gastroesophageal reflux disease without esophagitis K21.9 [place] [address] 33820- 8445 Jul, Status post cholecystectomy Z90.49 ; Essential hypertension I10 and Depression, unspecified depression type F32.9 [facility] [address] [address] Jun, [facility] [address] [place] [id number] [place] [address] 48068- 1297 Jun, Essential hypertension I10 [facility] [address] [place] [id number] [place] [address] 24685- 0964 Jun, [facility] [address] [place] [address] 77421- 7688 May, [facility] [address] [place] [id number] [place] [address] 93082- 4627 Apr, [place] [address] [place] [id number] [place] [address] 47556- 3860 Apr, Other chest pain R07.89 ; Intractable vomiting with nausea, unspecified vomiting type R11.2 and Yeast vaginitis B37.3 [facility] [address] [place] [address] 92207- 9600 Apr, Other chest pain R07.89 [place] [address] [place] [id number] [place] [address] 98858- 9191 Apr, Other chest pain R07.89 [facility] [address] [place] [address] 29227 -0976 Apr, Bron[address] J40 [facility] [address] [place] [address] 35274- 7277 Dec, Essential hypertension I10 and Depression, unspecified depression type F32.9 [facility] [id number] [id number] Nov, Fatigue, unspecified type R53.83 and Essential hypertension I10 [facility] [address] [place] [address] 21773- 2265 Nov, Pelvic pain R10.2 and Menorrhagia with irregular cycle N92.1 [place] [address] [place] [id number] [address] Nov, Encounter to establish care Z76.89 ; Essential hypertension I10 ; Depression, unspecified depression type F32.9 ; Fatigue, unspecified type R53.83 and Family history of diabetes mellitus Z83.3 [place] [address] [address]- [address] Oct, Menorrhagia with irregular cycle N92.1 [place] [address] [place] [id number] [place] [address] 40837- 1487 September, Pelvic pain R10.2 and Menorrhagia with irregular cycle N92.1 [place] [address] [place] [address] 58243- 9206 September, Pelvic pain R10.2 and Menorrhagia with irregular cycle N92.1 [place] [address] [address] Aug, Menorrhagia with irregular cycle N92.1 and Pelvic pain R10.2 IMMUNIZATIONS No Known Immunizations SOCIAL HISTORY Never Assessed REASON FOR VISIT [employer]. Normally sees Laly Munguia, but works in [place] and easier to have done here than [place]. deborah Nunes PLAN OF CARE Activity Details Follow Up pending results and 1 year Reason:WWE VITAL SIGNS Height 63 in 2017-04-19 Weight 134 lbs 2017-04-19 Temperature 99.0 degrees Fahrenheit 2017-04-19 Heart Rate 76 bpm 2017-04-19 Respiratory Rate 18 2017-04-19 BMI 23.73 kg/m2 2017-04-19 Blood pressure systolic 126 mmHg 2017-04-19 Blood pressure diastolic 70 mmHg 2017-04-19 MEDICATIONS Medication Instructions Dosage Frequency Start Date End Date Duration Status Prozac 10 mg Orally Once a day 1 capsule in the morning 24h Active Zantac 150 MG Orally twice a day 1 tablet 12h 14 Jul, 2016 30 day(s) Not-Taking Ondansetron 4 MG Orally every 8 hrs 1 tablet on the tongue and allow to dissolve 8h 05 days Not-Taking Toprol XL 50 MG TAKE ONE (1) TABLET BY MOUTH DAILY... Active RESULTS No Results PROCEDURES Procedure Date Ordered Result Body Site SPECIMEN HANDLING Apr 19, 2017 LAB NOT BILLED BY [facility] Apr 19, 2017 Bacterial Vaginosis In House Apr 19, 2017 INSTRUCTIONS MEDICATIONS ADMINISTERED No Known Medications MEDICAL (GENERAL) HISTORY Type Description Date Medical History Hypertension Medical History Depression Medical History 04/28/17 Dense breast tissue, asymmetry inthe upper left breast, US recommended. Surgical History LEEP procedure Surgical History Tubal ligation Surgical History cholecystectomy 06/2016 Hospitalization History oral abcess
--- OUTSIDE RECORDS SUMMARY | 2017-12-21 07:42 | XMS REPORT ---
Author Author NEELAM STEIN [facility] Address [address] [place] [address] Care Team Providers Care Trim Stencil Maker Name Role Phone NEELAM STEIN Unavailable PROBLEMS Type Condition ICD9-CM Code RSD19-DC Code Onset Dates Condition Status SNOMED Code Problem Fatigue, unspecified type R53.83 Active 91656361 Problem Family history of diabetes mellitus Z83.3 Active 424753198 Problem Gastroesophageal reflux disease without esophagitis K21.9 Active 722515804 Problem Status post cholecystectomy Z90.49 Active 649105345 Problem Essential hypertension I10 Active 33765560 Problem Depression, unspecified depression type F32.9 Active 11901859 Problem Esophageal spasm K22.4 Active 38475851 Problem Encounter to establish care Z76.89 Active 438016551 ALLERGIES Substance Reaction Event Type Date Status N.K.D.A. Unknown Non Drug Allergy Apr, Unknown SOCIAL HISTORY No smoking Hx information available PLAN OF CARE Activity Details Follow Up prn Reason: VITAL SIGNS Height 63 in 2016-05-11 Weight 129.8 lbs 2016-05-11 Temperature 98.4 degrees Fahrenheit 2016-05-11 Heart Rate 82 bpm 2016-05-11 Respiratory Rate 18 2016-05-11 BMI 22.99 kg/m2 2016-05-11 Blood pressure systolic 114 mmHg 2016-05-11 Blood pressure diastolic 76 mmHg 2016-05-11 MEDICATIONS Medication Instructions Dosage Frequency Start Date End Date Duration Status Prozac 10 mg Orally Once a day 1 capsule in the morning 24h Active Ondansetron 4 MG Orally every 8 hrs 1 tablet on the tongue and allow to dissolve 8h Active Diflucan 150 MG Orally one time May repeat in 3-5 days if needed 1 tablet Apr, Active Toprol XL 50 mg Orally Once a day 1 tablet 24h Nov, Active RESULTS Name Result Date Reference Range Ultrasound : Gallbladder 2016-05-14 HIDA Scan PROCEDURES Procedure Date Ordered Related Diagnosis Body Site Office Visit, Est Pt., Level 3 May 11, 2016 IMMUNIZATIONS No Known Immunizations
--- OUTSIDE RECORDS SUMMARY | 2017-12-21 07:42 | XMS REPORT ---
Author Author SHERI CANNON [facility] Address [address] [place] [address] Care Team Providers Care Access Coordinator Name Role Phone SHERI CANNON Unavailable PROBLEMS Type Condition ICD9-CM Code FWK04-GA Code Onset Dates Condition Status SNOMED Code Problem Fatigue, unspecified type R53.83 Active 28453496 Problem Esophageal spasm K22.4 Active 46243307 Problem Encounter to establish care Z76.89 Active 348588685 Problem Family history of diabetes mellitus Z83.3 Active 223767570 Problem Essential hypertension I10 Active 75383577 Problem Depression, unspecified depression type F32.9 Active 53073195 Problem Shantelle F30.9 Active 228543032 Problem Intestinal malabsorption, unspecified K90.9 Active 41259032 Problem Gastroesophageal reflux disease without esophagitis K21.9 Active 144276978 Problem Status post cholecystectomy Z90.49 Active 024303590 Problem Anxiety F41.9 Active 94596249 Problem Abnormal mammogram of left breast R92.8 Active 166929518 ALLERGIES No Information ENCOUNTERS Encounter Location Date Diagnosis [place] [id number] [place] [address]35- 4390 Nov, [place] [id number] [place] [address] 58149- 9549 Aug, Depression, unspecified depression type F32.9 [place] [id number] [place] [address] 44594- 3392 Aug, Colitis K52.9 and Shantelle F30.9 [place] [id number] [place] [address] 69193- 6025 Aug, Intestinal malabsorption, unspecified K90.9 [place] [id number] [place] [address] 11281- 9112 Jul, Intestinal malabsorption, unspecified K90.9 ; Diarrhea, unspecified R19.7 ; Anxiety F41.9 and Tobacco abuse Z72.0 [place] [id number] [place] [address] 22436- 9878 Jul, [facility] [id number] [place] [address] [phone] Jul, Diarrhea, unspecified type R19.7 [facility] [id number] [place] [address] 46279 -1441 Jul, Diarrhea, unspecified type R19.7 [facility] [place] [address] [id number] May, Abnormal mammogram of left breast R92.8 [place] [id number] [place] [address] [phone] Apr, Abnormal mammogram of left breast R92.8 [place] [id number] [place] [address] [phone] Apr, [facility] [id number] [place] [address] [phone] 04 Apr, 2017 Well woman exam with routine gynecological exam Z01.419 ; Screening breast examination Z12.31 ; High risk sexual behavior Z72.51 ; History of loop electrical excision procedure (LEEP) Z98.890 and History of abnormal cervical Pap smear Z87.898 [place] [id number] [place] [address] 44496- 9122 15 Mar, 2017 Essential hypertension I10 [place] [id number] [place] [address] 68264- 6631 13 Jan, 2017 Essential hypertension I10 and Family history of diabetes mellitus (DM) Z83.3 [place] [address] 9[address]67- 2422 14 Jul, 2016 Gastroesophageal reflux disease without esophagitis K21.9 [place] [address] 73262- 7996 08 Jul, 2016 Status post cholecystectomy Z90.49 ; Essential hypertension I10 and Depression, unspecified depression type F32.9 [facility] [address] [address] Jun, [facility] [address] [place] [address] 31320- 1625 Jun, Essential hypertension I10 [facility] [address] [place] [address] 02637- 7999 Jun, [facility] [address] [place] [address] 43545- 6384 May, [facility] [id number] [place] [address] 43702- 3352 Apr, [place] [id number] [place] [address] 66870- 1860 Apr, Other chest pain R07.89 ; Intractable vomiting with nausea, unspecified vomiting type R11.2 and Yeast vaginitis B37.3 [facility] [address] [place] [address] 64762- 8804 Apr, Other chest pain R07.89 [place] [id number] [place] [address] 26103- 0316 Apr, Other chest pain R07.89 [facility] [address] [place] [address] 38194 -8966 Apr, Bronchitis J40 [facility] [address] [place] [address] 14217- 1198 Dec, Essential hypertension I10 and Depression, unspecified depression type F32.9 [facility] [id number] [id number] Nov, Fatigue, unspecified type R53.83 and Essential hypertension I10 [facility] [address] [place] [address] 80818- 4158 Nov, Pelvic pain R10.2 and Menorrhagia with irregular cycle N92.1 [place] [address] [address] 07 Nov, 2015 Encounter to establish care Z76.89 ; Essential hypertension I10 ; Depression, unspecified depression type F32.9 ; Fatigue, unspecified type R53.83 and Family history of diabetes mellitus Z83.3 [place] [address] [place] [address] 32157- 8655 Oct, Menorrhagia with irregular cycle N92.1 [place] [id number] [place] [address] 75465- 5797 September, Pelvic pain R10.2 and Menorrhagia with irregular cycle N92.1 [place] [id number] [place] [address] 60634- 0745 September, Pelvic pain R10.2 and Menorrhagia with irregular cycle N92.1 [place] [address] [place] [address] 69631- 0039 Aug, Menorrhagia with irregular cycle N92.1 and Pelvic pain R10.2 IMMUNIZATIONS No Known Immunizations SOCIAL HISTORY Never Assessed REASON FOR VISIT US PLAN OF CARE VITAL SIGNS MEDICATIONS Unknown Medications RESULTS Name Result Date Reference Range Ultrasound : Breast, Left PROCEDURES No Known procedures INSTRUCTIONS MEDICATIONS ADMINISTERED No Known Medications MEDICAL (GENERAL) HISTORY Type Description Date Medical History Hypertension Medical History Depression Medical History 04/28/17 Dense breast tissue, asymmetry inthe upper left breast, US recommended. Surgical History LEEP procedure Surgical History Tubal ligation Surgical History cholecystectomy 06/2016 Hospitalization History oral abcess
--- OUTSIDE RECORDS SUMMARY | 2017-12-21 07:43 | XMS REPORT ---
Author Author NEELAM STEIN [facility] Address [address] [place] [address] Care Team Providers Care Sleeping Room Cleaner Name Role Phone NEELAM STEIN Unavailable PROBLEMS Type Condition ICD9-CM Code ANR52-JF Code Onset Dates Condition Status SNOMED Code Problem Fatigue, unspecified type R53.83 Active 92692859 Problem Family history of diabetes mellitus Z83.3 Active 708217612 Problem Gastroesophageal reflux disease without esophagitis K21.9 Active 903360245 Problem Status post cholecystectomy Z90.49 Active 539874658 Problem Essential hypertension I10 Active 21912163 Problem Depression, unspecified depression type F32.9 Active 76067374 Problem Esophageal spasm K22.4 Active 57361148 Problem Encounter to establish care Z76.89 Active 567280733 ALLERGIES Substance Reaction Event Type Date Status N.K.D.A. Unknown Non Drug Allergy Apr, Unknown SOCIAL HISTORY No smoking Hx information available PLAN OF CARE Activity Details Follow Up 1 Week Reason:chest pain VITAL SIGNS Height 63 in 2016-05-04 Weight 132.4 lbs 2016-05-04 Temperature 98.1 degrees Fahrenheit 2016-05-04 Heart Rate 80 bpm 2016-05-04 Respiratory Rate 18 2016-05-04 BMI 23.45 kg/m2 2016-05-04 Blood pressure systolic 138 mmHg 2016-05-04 Blood pressure diastolic 82 mmHg 2016-05-04 MEDICATIONS Medication Instructions Dosage Frequency Start Date End Date Duration Status Amlodipine Besylate 5 mg Orally Once a day 1 tablet 24h Apr, Active Prozac 10 mg Orally Once a day 1 capsule in the morning 24h Active Toprol XL 50 mg Orally Once a day 1 tablet 24h Nov, Active RESULTS Name Result Date Reference Range CRP 2016-05-04 C-Reactive Protein, Quant 0.9 0.0-4.9 CRP, CARDIAC 2016-05-04 C-Reactive Protein, Cardiac 0.67 0.00-3.00 PROCEDURES Procedure Date Ordered Related Diagnosis Body Site C-REACTIVE PROTEIN, HS May 04, 2016 C-REACTIVE PROTEIN May 04, 2016 VENIPUNCT, ROUTINE* May 04, 2016 Office Visit, Est Pt., Level 3 May 04, 2016 IMMUNIZATIONS No Known Immunizations
--- OUTSIDE RECORDS SUMMARY | 2017-12-21 07:43 | XMS REPORT ---
Author Author SHERI CANNON [facility] Address [address] [place] [address] Care Team Providers Care Dial Maker Name Role Phone SHERI CANNON Unavailable PROBLEMS Type Condition ICD9-CM Code ZMS89-FJ Code Onset Dates Condition Status SNOMED Code Problem Fatigue, unspecified type R53.83 Active 58701056 Problem Esophageal spasm K22.4 Active 51135177 Problem Encounter to establish care Z76.89 Active 639369683 Problem Family history of diabetes mellitus Z83.3 Active 073194673 Problem Essential hypertension I10 Active 41209980 Problem Depression, unspecified depression type F32.9 Active 00360848 Problem Shantelle F30.9 Active 956027257 Problem Intestinal malabsorption, unspecified K90.9 Active 76016607 Problem Gastroesophageal reflux disease without esophagitis K21.9 Active 690284720 Problem Status post cholecystectomy Z90.49 Active 854353282 Problem Anxiety F41.9 Active 89295528 Problem Abnormal mammogram of left breast R92.8 Active 785695047 ALLERGIES No Information ENCOUNTERS Encounter Location Date Diagnosis [place] [id number] [place] [address] 42220- 4746 Nov, [place] [id number] [place] [address] 04031- 1660 Aug, Depression, unspecified depression type F32.9 [place] [id number] [place] [address] 34022- 8568 Aug, Colitis K52.9 and Shantelle F30.9 [place] [id number] [place] [address] 90116- 3017 Aug, Intestinal malabsorption, unspecified K90.9 [place] [id number] [place] [address] 33669- 1060 Jul, Intestinal malabsorption, unspecified K90.9 ; Diarrhea, unspecified R19.7 ; Anxiety F41.9 and Tobacco abuse Z72.0 [place] [id number] [place] [address] 69975- 7747 Jul, [facility] [id number] [place] [address] [phone] Jul, Diarrhea, unspecified type R19.7 [facility] [id number] [place] [address] 45355 -0553 Jul, Diarrhea, unspecified type R19.7 [facility] [place] [address] [id number] May, Abnormal mammogram of left breast R92.8 [place] [id number] [place] [address] [phone] Apr, Abnormal mammogram of left breast R92.8 [place] [id number] [place] [address] [phone] Apr, [facility] [id number] [place] [address] [id number] 04 Apr, 2017 Well woman exam with routine gynecological exam Z01.419 ; Screening breast examination Z12.31 ; High risk sexual behavior Z72.51 ; History of loop electrical excision procedure (LEEP) Z98.890 and History of abnormal cervical Pap smear Z87.898 [place] [id number] [place] [address] 62920- 0525 15 Mar, 2017 Essential hypertension I10 [place] [id number] [place] [address] 53501- 2896 13 Jan, 2017 Essential hypertension I10 and Family history of diabetes mellitus (DM) Z83.3 [place] [address] 16567- 9559 14 Jul, 2016 Gastroesophageal reflux disease without esophagitis K21.9 [place] [address] 16778- 0678 08 Jul, 2016 Status post cholecystectomy Z90.49 ; Essential hypertension I10 and Depression, unspecified depression type F32.9 [facility] [address] [address]- [address] Jun, [facility] [address] [place] [address] 13749- 1881 Jun, Essential hypertension I10 [facility] [address] [place] [address] 93747- 4309 Jun, [facility] [address] [place] [address] 25928- 8747 May, [facility] [id number] [place] [address] 43983- 5051 Apr, [place] [id number] [place] [address] 51049- 8870 Apr, Other chest pain R07.89 ; Intractable vomiting with nausea, unspecified vomiting type R11.2 and Yeast vaginitis B37.3 [facility] [address] [place] [address] 78223- 5843 Apr, Other chest pain R07.89 [place] [id number] [place] [address] 13692- 7458 Apr, Other chest pain R07.89 [facility] [address] [place] [address] 90464 -3772 Apr, Bronchitis J40 [facility] [address] [place] [address] 21867- 7586 Dec, Essential hypertension I10 and Depression, unspecified depression type F32.9 [facility] [id number] [place] [id number] Nov, Fatigue, unspecified type R53.83 and Essential hypertension I10 [facility] [address] [place] [address] 14927- 1033 Nov, Pelvic pain R10.2 and Menorrhagia with irregular cycle N92.1 [place] [id number] [address] 07 Nov, 2015 Encounter to establish care Z76.89 ; Essential hypertension I10 ; Depression, unspecified depression type F32.9 ; Fatigue, unspecified type R53.83 and Family history of diabetes mellitus Z83.3 [place] [address] [address] 8115 Oct, Menorrhagia with irregular cycle N92.1 [place] [id number] [place] [address] 57908- 3155 September, Pelvic pain R10.2 and Menorrhagia with irregular cycle N92.1 [place] [address] [place] [address] 78235- 0900 September, Pelvic pain R10.2 and Menorrhagia with irregular cycle N92.1 [place] [address] [place] [address] 51488- 0070 Aug, Menorrhagia with irregular cycle N92.1 and Pelvic pain R10.2 IMMUNIZATIONS No Known Immunizations SOCIAL HISTORY Never Assessed REASON FOR VISIT lab results/medication PLAN OF CARE VITAL SIGNS MEDICATIONS Medication Instructions Dosage Frequency Start Date End Date Duration Status Diflucan 150 MG Orally one dose 1 tablet Apr, Apr, 0 days Active RESULTS No Results PROCEDURES No Known procedures INSTRUCTIONS MEDICATIONS ADMINISTERED No Known Medications MEDICAL (GENERAL) HISTORY Type Description Date Medical History Hypertension Medical History Depression Medical History 04/28/17 Dense breast tissue, asymmetry inthe upper left breast, US recommended. Surgical History LEEP procedure Surgical History Tubal ligation Surgical History cholecystectomy 06/2016 Hospitalization History oral abcess
--- OUTSIDE RECORDS SUMMARY | 2017-12-21 07:43 | XMS REPORT ---
Author Author NEELAM STEIN [facility] Address [address] [place] [address] Care Team Providers Care Stile Ripsaw Operator Name Role Phone NEELAM STEIN Unavailable PROBLEMS Type Condition ICD9-CM Code CMF62-AE Code Onset Dates Condition Status SNOMED Code Problem Fatigue, unspecified type R53.83 Active 22695784 Problem Family history of diabetes mellitus Z83.3 Active 800106416 Problem Gastroesophageal reflux disease without esophagitis K21.9 Active 605718221 Problem Status post cholecystectomy Z90.49 Active 294827683 Problem Essential hypertension I10 Active 91271441 Problem Depression, unspecified depression type F32.9 Active 13627632 Problem Esophageal spasm K22.4 Active 46627366 Problem Encounter to establish care Z76.89 Active 885392133 ALLERGIES Unknown Allergies SOCIAL HISTORY No smoking Hx information available PLAN OF CARE VITAL SIGNS MEDICATIONS Medication Instructions Dosage Frequency Start Date End Date Duration Status Ondansetron 4 MG Orally every 8 hrs 1 tablet on the tongue and allow to dissolve 8h 05 days Active RESULTS No Results PROCEDURES No Known procedures IMMUNIZATIONS No Known Immunizations
--- OUTSIDE RECORDS SUMMARY | 2017-12-21 07:43 | XMS REPORT ---
Author Author ELVIRA LE [employer] Address Unknown Phone Unavailable Care Team Providers Care Ambulatory Analyst Name Role Phone ELVIRA LE Unavailable Allergies, Adverse Reactions, Alerts Substance Reaction Event Type N.K.D.A. Info Not Available Non Drug Allergy Problems Problem Type Condition Code Onset Dates Condition Status Assessment Pelvic pain R10.2 Active Assessment Menorrhagia with irregular cycle N92.1 Active Medications Medication Code System Code Instructions Start Date End Date Status Dosage Doxycycline Hyclate [facility] [address]-37 100 MG Orally every 12 hrs September 06, 2015 September 16, 2015 1 tablet Prozac [facility] [address]-24 10 MG Orally Once a day 1 capsule in the morning atenolol NDC 0 Oral 1 tab Procedures Procedure Coding System Code Date No Charge CPT-4 60916 September 06, 2015 TRICHOMONAS ASSAY W/OPTIC CPT-4 97092 September 06, 2015 CULTURE, BACTERIA, OTHER CPT-4 29587 September 06, 2015 URINE TEST CPT-4 33177 September 06, 2015 URINALYSIS, AUTO, W/O SCOPE CPT-4 46773 September 06, 2015 Office Visit, New Pt., Level 3 CPT-4 26473 September 06, 2015 Vital Signs Date/Time: September 06, 2015 Temperature 98.1 F Weight 129.3 lbs Height 63 in BMI 22.90 Index Blood Pressure Diastolic 82 mmHg Blood Pressure Systolic 130 mmHg Cardiac Monitoring Heart Rate 70 bpm Results Name Result Date Reference Range Unit Abnormality Flag UA LONG DIP (IN HOUSE) ----pH 6.0 20150906 ----BLO 3+ 20150906 ----Clarity clear 20150906 ----Color yellow 20150906 ----Odor no 20150906 ----GLU negative 20150906 ----FATOU trace 20150906 ----TIFFANIE negative 20150906 ----NIT negative 20150906 ----KET negative 20150906 ----Lot # [id number] ----SG 1.020 20150906 ----URO 0.2 20150906 ----Exp date 20150906 ----Protein negative 20150906 CULTURE, GENITAL ----Genital Culture, Routine Final report [id number] TEST, URINE (IN HOUSE) ----RESULTS negative 20150906 ----Lot # [id number] ----Control + 20150906 ----Exp date 20150906 TRICHOMONAS (IN HOUSE) ----Exp date 20150906 ----Control + 20150906 ----Lot # [id number] ----TRICHOMONAS negative 20150906 Summary Purpose [employer] Submission
--- OUTSIDE RECORDS SUMMARY | 2017-12-21 07:44 | XMS REPORT | Continuity of Care Document ---
Author Author [facility] Organization [facility] Address Unknown Phone Unavailable Allergies Active Description Code Type Severity Reaction Onset Reported/Identified Relationship to Patient Clinical Status Yes No Known Drug Allergies [id number] Drug Allergy Unknown N/A 05/01/2016 Medications There is no data. Problems Date Dx Coded Attending Type Code Diagnosis Diagnosed By 10/04/2015 ELVIRA LE MD Ot N92.1 EXCESSIVE AND FREQUENT MENSTRUATION WITH 10/04/2015 ELVIRA LE MD Ot R10.2 PELVIC AND PERINEAL PAIN 10/16/2015 ELVIRA LE MD Ot N92.1 EXCESSIVE AND FREQUENT MENSTRUATION WITH 10/16/2015 ELVIRA LE MD Ot R10.2 PELVIC AND PERINEAL PAIN 12/20/2015 ELVIRA LE MD Ot N92.1 EXCESSIVE AND FREQUENT MENSTRUATION WITH 12/20/2015 ELVIRA LE MD Ot R10.2 PELVIC AND PERINEAL PAIN 05/01/2016 ELVIRA LE MD Ot N92.1 EXCESSIVE AND FREQUENT MENSTRUATION WITH 05/01/2016 ELVIRA LE MD Ot R10.2 PELVIC AND PERINEAL PAIN 05/01/2016 ELVIRA LE MD Ot N92.1 EXCESSIVE AND FREQUENT MENSTRUATION WITH 05/01/2016 ELVIRA LE MD Ot R10.2 PELVIC AND PERINEAL PAIN 05/01/2016 DOREEN FAY APARTMENT GROUNDSKEEPER Ot F17.210 NICOTINE DEPENDENCE, CIGARETTES, UNCOMPL 05/01/2016 DOREEN FAY APARTMENT GROUNDSKEEPER Ot R05 COUGH 05/01/2016 DOREEN FAY APARTMENT GROUNDSKEEPER Ot R07.89 OTHER CHEST PAIN 05/01/2016 ELVIRA LE MD Ot N92.1 EXCESSIVE AND FREQUENT MENSTRUATION WITH 05/01/2016 ELVIRA LE MD Ot R10.2 PELVIC AND PERINEAL PAIN 05/01/2016 ELVIRA LE MD Ot N92.1 EXCESSIVE AND FREQUENT MENSTRUATION WITH 05/01/2016 MIMI ALLEN, ELVIRA Walton Ot R10.2 PELVIC AND PERINEAL PAIN 05/04/2016 DOREEN FAY APARTMENT GROUNDSKEEPER Ot F17.210 NICOTINE DEPENDENCE, CIGARETTES, UNCOMPL 05/04/2016 DOREEN FAY APARTMENT GROUNDSKEEPER Ot R05 COUGH 05/04/2016 DOREEN FAY APARTMENT GROUNDSKEEPER Ot R07.89 OTHER CHEST PAIN 05/15/2016 NEELAM STEIN GARMENT FINISHER Ot R11.2 NAUSEA WITH VOMITING, UNSPECIFIED 05/15/2016 NEELMA STEIN GARMENT FINISHER Ot R11.2 NAUSEA WITH VOMITING, UNSPECIFIED 05/21/2016 EHSAN ALLEN, SHERRI Escobar Ot K29.70 GASTRITIS, UNSPECIFIED, WITHOUT BLEEDING 05/21/2016 SHERRI MOSER MD Ot R10.13 EPIGASTRIC PAIN 05/21/2016 SHERRI MOSER MD Ot Z01.818 ENCOUNTER FOR OTHER PREPROCEDURAL EXAMIN 05/22/2016 SHERRI MOSER MD Ot R10.13 EPIGASTRIC PAIN 05/22/2016 SHERRI MOSER MD Ot Z01.818 ENCOUNTER FOR OTHER PREPROCEDURAL EXAMIN 05/25/2016 SHERRI MOSER MD Ot K29.70 GASTRITIS, UNSPECIFIED, WITHOUT BLEEDING 05/27/2016 NEELAM STEIN GARMENT FINISHER Ot R11.2 NAUSEA WITH VOMITING, UNSPECIFIED 05/29/2016 NEELAM STEIN GARMENT FINISHER Ot R11.2 NAUSEA WITH VOMITING, UNSPECIFIED 05/29/2016 NEELAM STEIN GARMENT FINISHER Ot R11.2 NAUSEA WITH VOMITING, UNSPECIFIED 06/09/2016 NEELAM STEIN GARMENT FINISHER Ot R11.2 NAUSEA WITH VOMITING, UNSPECIFIED 06/18/2016 SHERRI MOSER MD Ot K82.8 OTHER SPECIFIED DISEASES OF GALLBLADDER 06/18/2016 SHERRI MOSER MD Ot Z01.818 ENCOUNTER FOR OTHER PREPROCEDURAL EXAMIN 06/19/2016 SHERRI MOSER MD Ot K82.8 OTHER SPECIFIED DISEASES OF GALLBLADDER 06/19/2016 SHERRI MOSER MD Ot Z01.818 ENCOUNTER FOR OTHER PREPROCEDURAL EXAMIN 06/24/2016 SHERRI MOSER MD Ot K81.1 CHRONIC CHOLECYSTITIS 06/24/2016 EHSAN ALLEN, SHERRI Escobar Ot Z11.2 ENCOUNTER FOR SCREENING FOR OTHER BACTER 06/25/2016 EHSAN ALLEN, SHERRI Escobar Ot K81.1 CHRONIC CHOLECYSTITIS 06/25/2016 EHSAN ALLEN, SHERRI Escobar Ot Z11.2 ENCOUNTER FOR SCREENING FOR OTHER BACTER 07/21/2016 EHSAN ALLEN, SHERRI Escobar Ot K81.1 CHRONIC CHOLECYSTITIS 07/21/2016 EHSAN ALLEN, SHERRI Escobar Ot Z11.2 ENCOUNTER FOR SCREENING FOR OTHER BACTER 04/23/2017 ELVIRA LE MD Ot N92.1 EXCESSIVE AND FREQUENT MENSTRUATION WITH 04/23/2017 ELVIRA LE MD Ot R10.2 PELVIC AND PERINEAL PAIN 04/23/2017 ELVIRA LE MD Ot N92.1 EXCESSIVE AND FREQUENT MENSTRUATION WITH 04/23/2017 ELVIRA LE MD Ot R10.2 PELVIC AND PERINEAL PAIN 04/23/2017 EMILNEELAM LEE GARMENT FINISHER Ot R11.2 NAUSEA WITH VOMITING, UNSPECIFIED 04/23/2017 NEELAM STEIN GARMENT FINISHER Ot R11.2 NAUSEA WITH VOMITING, UNSPECIFIED 04/23/2017 EHSAN ALLEN, SHERRI Escobar Ot R10.13 EPIGASTRIC PAIN 04/23/2017 EHSAN ALLEN, SHERRI Escobar Ot Z01.818 ENCOUNTER FOR OTHER PREPROCEDURAL EXAMIN 05/13/2017 DEGRAFFENREID-LEIVA, SHERI L Ot Z12.31 ENCNTR SCREEN MAMMOGRAM FOR MALIGNANT NE 06/11/2017 DEGRAFFENREID-LEIVA, SHERI L Ot Z12.31 ENCNTR SCREEN MAMMOGRAM FOR MALIGNANT NE 06/15/2017 DEGRAFFENREID-LEIVA, SHERI L Ot R92.2 INCONCLUSIVE MAMMOGRAM 06/23/2017 DEGRAFFENREID-LEIVA, SHERI L Ot R92.2 INCONCLUSIVE MAMMOGRAM 08/13/2017 ELVIRA LE MD Ot N92.1 EXCESSIVE AND FREQUENT MENSTRUATION WITH 08/13/2017 ELVIRA LE MD Ot R10.2 PELVIC AND PERINEAL PAIN 08/13/2017 ELVIRA LE MD Ot N92.1 EXCESSIVE AND FREQUENT MENSTRUATION WITH 08/13/2017 ELVIRA LE MD Ot R10.2 PELVIC AND PERINEAL PAIN 08/13/2017 NEELAM STEIN Ot R11.2 NAUSEA WITH VOMITING, UNSPECIFIED 08/13/2017 NEELAM STEIN GARMENT FINISHER Ot R11.2 NAUSEA WITH VOMITING, UNSPECIFIED 08/13/2017 EHSAN ALLEN, SHERRI Escobar Ot R10.13 EPIGASTRIC PAIN 08/13/2017 EHSAN ALLEN, SHERRI Escobar Ot Z01.818 ENCOUNTER FOR OTHER PREPROCEDURAL EXAMIN 08/13/2017 DEGRAFFENREID-LEIVA, SHERI L Ot Z12.31 ENCNTR SCREEN MAMMOGRAM FOR MALIGNANT NE 08/13/2017 DEGRAFFENREID-LEIVA, SHERI L Ot R92.2 INCONCLUSIVE MAMMOGRAM 08/13/2017 STEFANI CISNEROS Ot F17.210 NICOTINE DEPENDENCE, CIGARETTES, UNCOMPL 08/13/2017 STEFANI CISNEROS Ot F32.9 MAJOR DEPRESSIVE DISORDER, SINGLE EPISOD 08/13/2017 STEFANI CISNEROS Ot I10 ESSENTIAL (PRIMARY) HYPERTENSION 08/13/2017 STEFANI CISNEROS Ot K52.9 NONINFECTIVE GASTROENTERITIS AND COLITIS 08/13/2017 STEFANI CISNEROS Ot R10.33 PERIUMBILICAL PAIN 08/13/2017 STEFANI CISNEROS Ot Z87.448 PERSONAL HISTORY OF OTHER DISEASES OF UR 08/13/2017 STEFANI CISNEROS Ot Z98.51 TUBAL LIGATION STATUS 08/16/2017 STEFANI CISNEROS Ot F17.210 NICOTINE DEPENDENCE, CIGARETTES, UNCOMPL 08/16/2017 STEFANI CISNEROS Ot F32.9 MAJOR DEPRESSIVE DISORDER, SINGLE EPISOD 08/16/2017 STEFANI CISNEROS Ot I10 ESSENTIAL (PRIMARY) HYPERTENSION 08/16/2017 STEFANI CISNEROS Ot K52.9 NONINFECTIVE GASTROENTERITIS AND COLITIS 08/16/2017 STEFANI CISNEROS Ot R10.33 PERIUMBILICAL PAIN 08/16/2017 STEFANI CISNEROS Ot Z87.448 PERSONAL HISTORY OF OTHER DISEASES OF UR 08/16/2017 STEFANI CISNEROS Ot Z98.51 TUBAL LIGATION STATUS 08/20/2017 STEFANI CISNEROS Ot F17.210 NICOTINE DEPENDENCE, CIGARETTES, UNCOMPL 08/20/2017 STEFANI CISNEROS Ot F32.9 MAJOR DEPRESSIVE DISORDER, SINGLE EPISOD 08/20/2017 STEFANI CISNEROS Ot I10 ESSENTIAL (PRIMARY) HYPERTENSION 08/20/2017 STEFANI CISNEROS Ot K52.9 NONINFECTIVE GASTROENTERITIS AND COLITIS 08/20/2017 STEFANI CISNEROS Ot R10.33 PERIUMBILICAL PAIN 08/20/2017 STEFANI CISNEROS Ot Z87.448 PERSONAL HISTORY OF OTHER DISEASES OF UR 08/20/2017 STEFANI CISNEROS Ot Z98.51 TUBAL LIGATION STATUS Procedures There is no data. Results Test Result Range Complete blood count (CBC) with automated white blood cell (WBC) differential - 05/01/16 14:12 Blood leukocytes automated count (number/volume) 8.1 10*3/uL 4.3-11.0 Blood erythrocytes automated count (number/volume) 4.55 10*6/uL 4.35-5.85 Venous blood hemoglobin measurement (mass/volume) 11.7 g/dL 11.5-16.0 Blood hematocrit (volume fraction) 37 % 35-52 Automated erythrocyte mean corpuscular volume 82 [foz_us] 80-99 Automated erythrocyte mean corpuscular hemoglobin (mass per erythrocyte) 26 pg 25-34 Automated erythrocyte mean corpuscular hemoglobin concentration measurement ( mass/volume) 32 g/dL 32-36 Automated erythrocyte distribution width ratio 15.6 % 10.0-14.5 Automated blood platelet count (count/volume) 330 10*3/uL 130-400 Automated blood platelet mean volume measurement 9.6 [foz_us] 7.4-10.4 Automated blood neutrophils/100 leukocytes 67 % 42-75 Automated blood lymphocytes/100 leukocytes 18 % 12-44 Blood monocytes/100 leukocytes 10 % 0-12 Automated blood eosinophils/100 leukocytes 4 % 0-10 Automated blood basophils/100 leukocytes 1 % 0-10 Blood neutrophils automated count (number/volume) 5.4 10*3 1.8-7.8 Blood lymphocytes automated count (number/volume) 1.5 10*3 1.0-4.0 Blood monocytes automated count (number/volume) 0.8 10*3 0.0-1.0 Automated eosinophil count 0.3 10*3/uL 0.0-0.3 Automated blood basophil count (count/volume) 0.1 10*3/uL 0.0-0.1 Fibrin D-dimer FEU measurement in platelet poor plasma (mass/volume) - 14:12 Fibrin D-dimer FEU measurement in platelet poor plasma (mass/volume) 0.27 ug/mL 0.00-0.49 Comprehensive metabolic panel - 05/01/16 14:12 Serum or plasma sodium measurement (moles/volume) 138 mmol/L 135-145 Serum or plasma potassium measurement (moles/volume) 3.7 mmol/L 3.6-5.0 Serum or plasma chloride measurement (moles/volume) 106 mmol/L 98-107 Carbon dioxide 25 mmol/L 21-32 Serum or plasma anion gap determination (moles/volume) 7 mmol/L 5-14 Serum or plasma urea nitrogen measurement (mass/volume) 12 mg/dL 7-18 Serum or plasma creatinine measurement (mass/volume) 0.70 mg/dL 0.60-1.30 Serum or plasma urea nitrogen/creatinine mass ratio 17 NRG Serum or plasma creatinine measurement with calculation of estimated glomerular filtration rate > NRG Serum or plasma glucose measurement (mass/volume) 104 mg/dL 70-105 Serum or plasma calcium measurement (mass/volume) 8.7 mg/dL 8.5-10.1 Serum or plasma total bilirubin measurement (mass/volume) 0.3 mg/dL 0.1-1.0 Serum or plasma alkaline phosphatase measurement (enzymatic activity/volume) 62 U/L 40-136 Serum or plasma aspartate aminotransferase measurement (enzymatic activity/ volume) 20 U/L 5-34 Serum or plasma alanine aminotransferase measurement (enzymatic activity/volume ) 14 U/L 0-55 Serum or plasma protein measurement (mass/volume) 6.5 g/dL 6.4-8.2 Serum or plasma albumin measurement (mass/volume) 4.2 g/dL 3.2-4.5 Serum or plasma troponin i.cardiac measurement (mass/volume) - 05/01/16 14:12 Serum or plasma troponin i.cardiac measurement (mass/volume) < ng/ mL <0.30 Complete urinalysis with reflex to culture - 05/01/16 14:35 Urine color determination YELLOW NRG Urine clarity determination SLIGHTLY CLOUDY NRG Urine pH measurement by test strip 8 5-9 Specific gravity of urine by test strip 1.015 1.016- 1.022 Urine protein assay by test strip, semi-quantitative NEGATIVE NEGATIVE Urine glucose detection by automated test strip NEGATIVE NEGATIVE Erythrocytes detection in urine sediment by light microscopy 1+ NEGATIVE Urine ketones detection by automated test strip NEGATIVE NEGATIVE Urine nitrite detection by test strip NEGATIVE NEGATIVE Urine total bilirubin detection by test strip NEGATIVE NEGATIVE Urine urobilinogen measurement by automated test strip (mass/volume) NORMAL NORMAL Urine leukocyte esterase detection by dipstick NEGATIVE NEGATIVE Automated urine sediment erythrocyte count by microscopy (number/high power field) NONE NRG Automated urine sediment leukocyte count by microscopy (number/high power field ) [HPF] NRG Bacteria detection in urine sediment by light microscopy FEW NRG Squamous epithelial cells detection in urine sediment by light microscopy 10-25 NRG Crystals detection in urine sediment by light microscopy NONE NRG Casts detection in urine sediment by light microscopy NONE NRG Mucus detection in urine sediment by light microscopy NEGATIVE NRG Complete urinalysis with reflex to culture NO NRG Amorphous sediment detection in urine sediment by light microscopy LARGE CRISTOFER PHOSPHATE NRG Calcium oxalate crystals detection in urine sediment by light microscopy RARE NRG Urine drug screening test - 05/01/16 14:35 Urine phencyclidine detection by screening method NEGATIVE NEGATIVE Urine benzodiazepines detection by screening method NEGATIVE NEGATIVE Urine cocaine detection NEGATIVE NEGATIVE Urine amphetamines detection by screening method NEGATIVE NEGATIVE Urine methamphetamine detection by screening method NEGATIVE NEGATIVE Urine cannabinoids detection by screening method NEGATIVE NEGATIVE Urine opiates detection by screening method NEGATIVE NEGATIVE Urine barbiturates detection NEGATIVE NEGATIVE Screening urine tricyclic antidepressants detection NEGATIVE NEGATIVE Urine methadone detection by screening method NEGATIVE NEGATIVE Urine oxycodone detection NEGATIVE NEGATIVE Urine propoxyphene detection NEGATIVE NEGATIVE C-Reactive Protein, Cardiac - 05/04/16 10:34 C-Reactive Protein, Cardiac 0.67 mg/L 0.00-3.00 C-Reactive Protein, Quant - 05/04/16 10:34 C-Reactive Protein, Quant 0.9 mg/L 0.0-4.9 Urine beta human chorionic gonadotropin (hCG) measurement - 05/21/16 09:00 Urine beta human chorionic gonadotropin (hCG) measurement NEGATIVE NEGATIVE Urine beta human chorionic gonadotropin (hCG) measurement - 06/24/16 10:50 Urine beta human chorionic gonadotropin (hCG) measurement NEGATIVE NEGATIVE Complete blood count (CBC) with automated white blood cell (WBC) differential - 06/24/16 11:25 Blood leukocytes automated count (number/volume) 6.0 10*3/uL 4.3-11.0 Blood erythrocytes automated count (number/volume) 4.28 10*6/uL 4.35-5.85 Venous blood hemoglobin measurement (mass/volume) 10.5 g/dL 11.5-16.0 Blood hematocrit (volume fraction) 33 % 35-52 Automated erythrocyte mean corpuscular volume 78 [foz_us] 80-99 Automated erythrocyte mean corpuscular hemoglobin (mass per erythrocyte) 25 pg 25-34 Automated erythrocyte mean corpuscular hemoglobin concentration measurement ( mass/volume) 32 g/dL 32-36 Automated erythrocyte distribution width ratio 15.9 % 10.0-14.5 Automated blood platelet count (count/volume) 302 10*3/uL 130-400 Automated blood platelet mean volume measurement 9.7 [foz_us] 7.4-10.4 Automated blood neutrophils/100 leukocytes 62 % 42-75 Automated blood lymphocytes/100 leukocytes 24 % 12-44 Blood monocytes/100 leukocytes 8 % 0-12 Automated blood eosinophils/100 leukocytes 4 % 0-10 Automated blood basophils/100 leukocytes 2 % 0-10 Blood neutrophils automated count (number/volume) 3.7 10*3 1.8-7.8 Blood lymphocytes automated count (number/volume) 1.5 10*3 1.0-4.0 Blood monocytes automated count (number/volume) 0.5 10*3 0.0-1.0 Automated eosinophil count 0.3 10*3/uL 0.0-0.3 Automated blood basophil count (count/volume) 0.1 10*3/uL 0.0-0.1 Comprehensive metabolic panel - 06/24/16 11:25 Serum or plasma sodium measurement (moles/volume) 141 mmol/L 135-145 Serum or plasma potassium measurement (moles/volume) 3.9 mmol/L 3.6-5.0 Serum or plasma chloride measurement (moles/volume) 108 mmol/L 98-107 Carbon dioxide 24 mmol/L 21-32 Serum or plasma anion gap determination (moles/volume) 9 mmol/L 5-14 Serum or plasma urea nitrogen measurement (mass/volume) 13 mg/dL 7-18 Serum or plasma creatinine measurement (mass/volume) 0.75 mg/dL 0.60-1.30 Serum or plasma urea nitrogen/creatinine mass ratio 17 NRG Serum or plasma creatinine measurement with calculation of estimated glomerular filtration rate > NRG Serum or plasma glucose measurement (mass/volume) 81 mg/dL 70-105 Serum or plasma calcium measurement (mass/volume) 8.8 mg/dL 8.5-10.1 Serum or plasma total bilirubin measurement (mass/volume) 0.5 mg/dL 0.1-1.0 Serum or plasma alkaline phosphatase measurement (enzymatic activity/volume) 57 U/L 40-136 Serum or plasma aspartate aminotransferase measurement (enzymatic activity/ volume) 19 U/L 5-34 Serum or plasma alanine aminotransferase measurement (enzymatic activity/volume ) 13 U/L 0-55 Serum or plasma protein measurement (mass/volume) 6.6 g/dL 6.4-8.2 Serum or plasma albumin measurement (mass/volume) 4.3 g/dL 3.2-4.5 GC/CHLAMYDIA (SWAB OR URINE)-RAPID - 04/19/17 17:31 CHLAMYDIA TRACHOMATIS RNA, TMA NOT DETECTED NOT DETECTED NEISSERIA GONORRHOEAE RNA, TMA NOT DETECTED NOT DETECTED COMMENT NRG SUREPATH PAP AND HPV mRNA E6/E7 - 04/19/17 17:31 CLINICAL INFORMATION: [facility] LMP: [id number] NR PREV. PAP: ABNL G PREV. BX: NRG SOURCE: Cervix NR STATEMENT OF ADEQUACY: [facility] INTERPRETATION/RESULT: [facility] PAINT POURER: NRG HPV mRNA E6/E7, SUREPATH VIAL Not Detected NOT DETECTED REVIEW PAINT POURER: NR INFECTION: NRG CULTURE, GENITAL - 04/19/17 17:31 CULTURE, GENITAL SEE NOTE NRG STOOL (C-DIFF) - 08/02/17 11:22 CLOSTRIDIUM DIFFICILE TOXIN/GDH W/REFL TO PCR SEE NOTE NRG STOOL (O T P) - 08/02/17 11:22 OVA AND PARASITES, CONC AND PERM SMEAR SEE NOTE NRG CULTURE, STOOL - 08/02/17 11:22 SALMONELLA AND SHIGELLA, CULTURE SEE NOTE NRG Complete urinalysis with reflex to culture - 08/13/17 09:40 Urine color determination YELLOW NRG Urine clarity determination CLEAR NRG Urine pH measurement by test strip 8 5-9 Specific gravity of urine by test strip 1.010 1.016- 1.022 Urine protein assay by test strip, semi-quantitative NEGATIVE NEGATIVE Urine glucose detection by automated test strip NEGATIVE NEGATIVE Erythrocytes detection in urine sediment by light microscopy NEGATIVE NEGATIVE Urine ketones detection by automated test strip NEGATIVE NEGATIVE Urine nitrite detection by test strip NEGATIVE NEGATIVE Urine total bilirubin detection by test strip NEGATIVE NEGATIVE Urine urobilinogen measurement by automated test strip (mass/volume) NORMAL NORMAL Urine leukocyte esterase detection by dipstick NEGATIVE NEGATIVE Automated urine sediment erythrocyte count by microscopy (number/high power field) NONE NRG Automated urine sediment leukocyte count by microscopy (number/high power field ) NONE NRG Bacteria detection in urine sediment by light microscopy TRACE NRG Squamous epithelial cells detection in urine sediment by light microscopy 2-5 NRG Crystals detection in urine sediment by light microscopy NONE NRG Casts detection in urine sediment by light microscopy NONE NRG Mucus detection in urine sediment by light microscopy NEGATIVE NRG Complete urinalysis with reflex to culture NO NRG Complete blood count (CBC) with automated white blood cell (WBC) differential - 08/13/17 10:00 Blood leukocytes automated count (number/volume) 6.9 10*3/uL 4.3-11.0 Blood erythrocytes automated count (number/volume) 4.53 10*6/uL 4.35-5.85 Venous blood hemoglobin measurement (mass/volume) 10.6 g/dL 11.5-16.0 Blood hematocrit (volume fraction) 34 % 35-52 Automated erythrocyte mean corpuscular volume 76 [foz_us] 80-99 Automated erythrocyte mean corpuscular hemoglobin (mass per erythrocyte) 23 pg 25-34 Automated erythrocyte mean corpuscular hemoglobin concentration measurement ( mass/volume) 31 g/dL 32-36 Automated erythrocyte distribution width ratio 18.2 % 10.0-14.5 Automated blood platelet count (count/volume) 363 10*3/uL 130-400 Automated blood platelet mean volume measurement 9.4 [foz_us] 7.4-10.4 Automated blood neutrophils/100 leukocytes 66 % 42-75 Automated blood lymphocytes/100 leukocytes 22 % 12-44 Blood monocytes/100 leukocytes 8 % 0-12 Automated blood eosinophils/100 leukocytes 2 % 0-10 Automated blood basophils/100 leukocytes 2 % 0-10 Blood neutrophils automated count (number/volume) 4.6 10*3 1.8-7.8 Blood lymphocytes automated count (number/volume) 1.6 10*3 1.0-4.0 Blood monocytes automated count (number/volume) 0.5 10*3 0.0-1.0 Automated eosinophil count 0.1 10*3/uL 0.0-0.3 Automated blood basophil count (count/volume) 0.1 10*3/uL 0.0-0.1 Comprehensive metabolic panel - 08/13/17 10:00 Serum or plasma sodium measurement (moles/volume) 142 mmol/L 135-145 Serum or plasma potassium measurement (moles/volume) 3.8 mmol/L 3.6-5.0 Serum or plasma chloride measurement (moles/volume) 108 mmol/L 98-107 Carbon dioxide 27 mmol/L 21-32 Serum or plasma anion gap determination (moles/volume) 7 mmol/L 5-14 Serum or plasma urea nitrogen measurement (mass/volume) 13 mg/dL 7-18 Serum or plasma creatinine measurement (mass/volume) 0.69 mg/dL 0.60-1.30 Serum or plasma urea nitrogen/creatinine mass ratio 19 NRG Serum or plasma creatinine measurement with calculation of estimated glomerular filtration rate > NRG Serum or plasma glucose measurement (mass/volume) 82 mg/dL 70-105 Serum or plasma calcium measurement (mass/volume) 9.0 mg/dL 8.5-10.1 Serum or plasma total bilirubin measurement (mass/volume) 0.4 mg/dL 0.1-1.0 Serum or plasma alkaline phosphatase measurement (enzymatic activity/volume) 69 U/L 40-136 Serum or plasma aspartate aminotransferase measurement (enzymatic activity/ volume) 18 U/L 5-34 Serum or plasma alanine aminotransferase measurement (enzymatic activity/volume ) 12 U/L 0-55 Serum or plasma protein measurement (mass/volume) 6.9 g/dL 6.4-8.2 Serum or plasma albumin measurement (mass/volume) 4.4 g/dL 3.2-4.5 Lipase - 08/13/17 10:00 Lipase 32 U/L 8-78 Encounters ACCT No. Visit Date/Time Discharge Status Pt. Type Provider Facility Loc./Unit Complaint [id number] 08/13/2017 09:31:00 08/13/2017 13:47:00 DIS Emergency STEFANI CISNEROS [facility] ER STOMACH PAIN,DIAHRREA [id number] 06/11/2017 12:17:00 06/11/2017 23:59:59 CLS Outpatient DEGRAFFERUBY-LEIVASHERI Rigoberto [facility] RAD R92.8 ABNORMAL MAMMO [id number] 05/03/2017 09:14:00 05/03/2017 23:59:59 CLS Preadmit KATARINASHERI Rigoberto [facility] RAD ABN MAMMO [id number] 04/23/2017 15:11:00 04/23/2017 23:59:59 CLS Outpatient DEGRAFFENISASHERI Rigoberto [facility] RAD SCREENING [id number] 06/24/2016 10:44:00 06/24/2016 16:40:00 DIS Outpatient SHERRI MOSER MD [facility] DYSKNESIA [id number] 06/18/2016 05:34:00 06/18/2016 14:09:00 DIS Outpatient SHERRI MOSER MD [facility] PREOP DYSKNESIA [id number] 05/28/2016 07:25:00 05/28/2016 23:59:59 CLS Outpatient NEELAM STEIN [facility] CARD INTRACTABLE VOMITING [id number] 05/21/2016 08:48:00 05/21/2016 11:50:00 DIS Outpatient SHERRI MOSER MD [facility] UPPER ABDOMINAL PAIN [id number] 05/20/2016 05:43:00 05/20/2016 23:59:59 CLS Outpatient SHERRI MOSER MD [facility] PREOP UPPER ABDOMINAL PAIN [id number] 05/14/2016 08:57:00 05/14/2016 23:59:59 CLS Outpatient NEELAM STEIN [facility] RAD INTRACTABLE VOMITING [id number] 05/01/2016 13:49:00 05/01/2016 15:58:00 DIS Emergency DOREEN FAY APRN [facility] ER COUGH [id number] 12/02/2015 13:43:00 12/02/2015 23:59:59 CLS Outpatient ELVIRA LE MD [facility] RAD PELVIC PAIN,N92.1 [id number] 10/03/2015 12:37:00 10/03/2015 23:59:59 CLS Outpatient ELVIRA LE MD [facility] RAD PELVIC PAIN,MENORRHAGIA W /IRREGULAR CYCLE [id number] 05/05/2016 10:05:00 Document Registration [id number] 11/24/2017 16:20:00 11/24/2017 23:59:59 CLS Outpatient NEELAM STEIN APRN [facility] [id number] 08/02/2017 11:00:00 Document Registration [id number] 04/19/2017 17:31:00 Document Registration [id number] 04/19/2017 16:00:00 Document Registration
[2017-12-21] MEDS ORDERED: fentaNYL INJECTION 100 MCG/2 ML AMP IVP STA (08:03)
[2017-12-21] MEDS ORDERED: NS IV 1000 ML 1,000 ML IV ONE (08:03)
[2017-12-21 08:29] LABS: BILIRUBIN,URINE NEGATIVE (NEGATIVE); CLARITY,URINE SLIGHTLY CLOUDY; COLOR,URINE YELLOW; GLUCOSE, URINE (UA) NEGATIVE (NEGATIVE); KETONES,URINE NEGATIVE (NEGATIVE); LEUKOCYTE ESTERASE ,URINE NEGATIVE (NEGATIVE); NITRITE,URINE NEGATIVE (NEGATIVE); PH,URINE 8 (5-9); PROTEIN,URINE NEGATIVE (NEGATIVE); UROBILINOGEN,URINE NORMAL (NORMAL)
[2017-12-21 08:37] LABS: BASOPHILS # (AUTO) 0.1 10^3/uL (0.0-0.1); BASOPHILS % (AUTO) 1 % (0-10); EOSINOPHILS # (AUTO) 0.3 10^3/uL (0.0-0.3); EOSINOPHILS % (AUTO) 3 % (0-10); HEMATOCRIT 36 % (35-52); HEMOGLOBIN 11.1 G/DL (11.5-16.0); LYMPHOCYTES # (AUTO) 1.2 X 10^3 (1.0-4.0); LYMPHOCYTES % (AUTO) 16 % (12-44); MEAN CORPUSCULAR HEMOGLOBIN 23 PG (25-34); MEAN CORPUSCULAR HGB CONC 31 G/DL (32-36); MEAN CORPUSCULAR VOLUME 74 FL (80-99); MEAN PLATELET VOLUME 10.2 FL (7.4-10.4); MONOCYTES # (AUTO) 0.7 X 10^3 (0.0-1.0); MONOCYTES % (AUTO) 9 % (0-12); NEUTROPHILS # (AUTO) 5.5 X 10^3 (1.8-7.8); NEUTROPHILS % (AUTO) 71 % (42-75); PLATELET COUNT 305 10^3/uL (130-400); RED BLOOD COUNT 4.81 10^6/uL (4.35-5.85); RED CELL DISTRIBUTION WIDTH 18.4 % (10.0-14.5); WHITE BLOOD COUNT 7.8 10^3/uL (4.3-11.0)
[2017-12-21 08:38] LABS: BACTERIA,URINE TRACE /HPF; WBC,URINE RARE /HPF
--- NOTE | 2017-12-21 08:52 | ED Abdominal Pain ---
General Chief Complaint: Abdominal/GI Problems Stated Complaint: SEVERE ABD PAIN Nursing Triage Note: PT ARRIVES AMBULATORY TO THE ED COMPLAINING OF ACUTE ABDOMINAL PAIN. PT VISIBLY GUARDING AND UNABLE TO STAND STRAIGHT. DENIES NAUSEA, VOMITING, DIARRHEA. Sepsis Screen: No Definite Risk Source of Information: Patient, Family Exam Limitations: No Limitations History of Present Illness Date Seen by Provider: Dec 21, 2017 Time Seen by Provider: 08:00 Initial Comments Here with report of suprapubic abdominal pain that started acutely this morning. Denies dysuria or diarrhea. Hurts when she moves or stands straight. Denies ever having anything like this before. Denies nausea or vomiting. Timing/Duration: 1-3 Hours Severity/Quality: Moderate Location: Suprapubic Radiation: RLQ, LLQ Activities at Onset: None Modifying Factors: Worsens With Movement; Improves With Resting Associated Symptoms: No Back Pain, No Fever/Chills, No Nausea/Vomiting, No Shortness of Air, No Weakness Allergies and Home Medications Allergies Coded Allergies: metronidazole (Verified Allergy, Unknown, 12/21/17) Home Medications Ciprofloxacin HCl 500 Mg Tablet, 500 MG PO BID Prescribed by: STEFANI CLEANING on 08/13/17 1323 Fluoxetine HCl 10 Mg Capsule, 10 MG PO DAILY, (Reported) Hydrocodone Bit/Acetaminophen 1 Each Tablet, 1-2 TAB PO 4-6HR PRN for PAIN Prescribed by: SHERRI MOSER on 06/24/16 1307 Hyoscyamine Sulfate 0.125 Mg Tab.subl, 0.125 MG SL Q6H PRN for SPASMS Prescribed by: STEFANI CLEANING on 08/13/17 1323 Metoprolol Succinate 50 Mg Tab.er.24h, 50 MG PO HS, (Reported) Metronidazole 500 Mg Tablet, 500 MG PO TID Prescribed by: STEFANI CLEANING on 08/13/17 1323 Ondansetron 8 Mg Tab.rapdis, 8 MG PO Q6H PRN for NAUSEA/VOMITING-1ST LINE Prescribed by: STEFANI CLEANING on 08/13/17 1323 Ondansetron HCl 4 Mg Tab, 4 MG PO QID PRN for NAUSEA/VOMITING, (Reported) Patient Home Medication List Home Medication List Reviewed: Yes Review of Systems Constitutional: see HPI; No chills, No fever EENTM: No Symptoms Reported Respiratory: No Symptoms Reported Cardiovascular: No Symptoms Reported Gastrointestinal: See HPI, Abdominal Pain; Denies Constipated, Denies Diarrhea , Denies Vomiting Genitourinary: Denies Burning, Denies Frequency Musculoskeletal: no symptoms reported All Other Systems Reviewed Negative Unless Noted: Yes Past Fpejsfy-Auengt-Qrusfm Hx Past Med/Social Hx: Reviewed Nursing Past Med/Soc Hx Patient Social History Alcohol Use: Denies Use Recreational Drug Use: No Smoking Status: Current Everyday Smoker Type Used: Cigarettes Recent Foreign Travel: No Contact w/Someone Who Travel: No Recent Infectious Disease Expo: No Recent Hopitalizations: No Immunizations Up To Date Tetanus Booster (TDap): More than 5yrs Seasonal Allergies Seasonal Allergies: No Past Medical History Surgeries: Yes (LEAP) Gallbladder Respiratory: No Currently Using CPAP: No Currently Using BIPAP: No Cardiac: Yes Hypertension Neurological: No Last Menstrual Period: Dec 15, 2017 Hx : 3 Hx Total # of Abortions (Sp): 2 Reproductive Disorders: No (LEEP) Female Reproductive Disorders: Denies QUALITY AUDIT REPRESENTATIVE History: Tubal Ligation Sexually Transmitted Disease: No HIV/AIDS: No Genitourinary: No Gastrointestinal: No Gall Bladder Disease Musculoskeletal: No Endocrine: No HEENT: No Loss of Vision: Denies Hearing Impairment: Denies Cancer: No Psychosocial: Yes Depression Integumentary: No Blood Disorders: No Adverse Reaction/Blood Tranf: No Family Medical History Reviewed Nursing Family Hx No Pertinent Family Hx Physical Exam Vital Signs Vital Signs - First Documented 12/21/17 07:39 Temp 97.7 Pulse 70 Resp 18 B/P (MAP) 147/102 (117) Pulse Ox 100 Capillary Refill : Less Than 3 Seconds Height/Weight/BMI Height: 5'3.00" Weight: 130lbs. 0.0oz. 58.647337rg; 23.0 BMI Method:Stated General Appearance: WD/WN, no apparent distress HEENT: PERRL/EOMI, pharynx normal Neck: full range of motion, supple Respiratory: lungs clear, normal breath sounds Cardiovascular: regular rate, rhythm, no murmur Gastrointestinal: soft, guarding (suprapubic); No rebound; tenderness ( suprapubic) Extremities: non-tender, normal inspection Back: normal inspection, no CVA tenderness, no vertebral tenderness Neurologic/Psychiatric: alert, oriented x 3 Skin: normal color, warm/dry Progress/Results/Core Measures Results/Orders Lab Results Laboratory Tests Test 12/21/17 08:06 12/21/17 08:28 Range/Units Urine Color YELLOW Urine Clarity SLIGHTLY CLOUDY Urine pH 8 5-9 Urine Specific Powell 1.010 L 1.016-1.022 Urine Protein NEGATIVE NEGATIVE Urine Glucose (UA) NEGATIVE NEGATIVE Urine Ketones NEGATIVE NEGATIVE Urine Nitrite NEGATIVE NEGATIVE Urine Bilirubin NEGATIVE NEGATIVE Urine Urobilinogen NORMAL NORMAL MG/DL Urine Leukocyte Esterase NEGATIVE NEGATIVE Urine RBC (Auto) NEGATIVE NEGATIVE Urine RBC NONE /HPF Urine WBC RARE /HPF Urine Squamous Epithelial Cells 2-5 /HPF Urine Crystals NONE /LPF Urine Bacteria TRACE /HPF Urine Casts NONE /LPF Urine Mucus NEGATIVE /LPF Urine Culture Indicated NO Urine Test NEGATIVE NEGATIVE White Blood Count 7.8 4.3-11.0 10^3/uL Red Blood Count 4.81 4.35-5.85 10^6/uL Hemoglobin 11.1 L 11.5-16.0 G/DL Hematocrit 36 35-52 % Mean Corpuscular Volume 74 L 80-99 FL Mean Corpuscular Hemoglobin 23 L 25-34 PG Mean Corpuscular Hemoglobin Concent 31 L 32-36 G/DL Red Cell Distribution Width 18.4 H 10.0-14.5 % Platelet Count 305 130-400 10^3/uL Mean Platelet Volume 10.2 7.4-10.4 FL Neutrophils (%) (Auto) 71 42-75 % Lymphocytes (%) (Auto) 16 12-44 % Monocytes (%) (Auto) 9 0-12 % Eosinophils (%) (Auto) 3 0-10 % Basophils (%) (Auto) 1 0-10 % Neutrophils # (Auto) 5.5 1.8-7.8 X 10^3 Lymphocytes # (Auto) 1.2 1.0-4.0 X 10^3 Monocytes # (Auto) 0.7 0.0-1.0 X 10^3 Eosinophils # (Auto) 0.3 0.0-0.3 10^3/uL Basophils # (Auto) 0.1 0.0-0.1 10^3/uL Sodium Level 139 135-145 MMOL/L Potassium Level 3.7 3.6-5.0 MMOL/L Chloride Level 106 98-107 MMOL/L Carbon Dioxide Level 26 21-32 MMOL/L Anion Gap 7 5-14 MMOL/L Blood Urea Nitrogen 13 7-18 MG/DL Creatinine 0.69 0.60-1.30 MG/DL Estimat Glomerular Filtration Rate > 60 BUN/Creatinine Ratio 19 Glucose Level 84 70-105 MG/DL Calcium Level 9.7 8.5-10.1 MG/DL Total Bilirubin 0.8 0.1-1.0 MG/DL Aspartate Amino Transf (AST/SGOT) 21 5-34 U/L Alanine Aminotransferase (ALT/SGPT) 19 0-55 U/L Alkaline Phosphatase 79 40-136 U/L C-Reactive Protein High Sensitivity 0.11 0.00-0.50 MG/DL Total Protein 7.7 6.4-8.2 GM/DL Albumin 4.8 H 3.2-4.5 GM/DL My Orders Orders - CASIMIRO RAMIREZ MD Cbc With Automated Diff (12/21/17 08:03) Comprehensive Metabolic Panel (12/21/17 08:03) Hs C Reactive Protein (12/21/17 08:03) Ua Culture If Indicated (12/21/17 08:03) Saline Lock/Iv-Start (12/21/17 08:03) Ns Iv 1000 Ml (Sodium Chloride 0.9%) (12/21/17 08:03) Fentanyl Injection (Sublimaze Injection (12/21/17 08:03) Ct Abd/Pelv W (Appendicitis) (12/21/17 08:46) Hcg,Qualitative Urine (12/21/17 08:54) Iohexol Injection (Omnipaque 350 Mg/Ml 1 (12/21/17 09:15) Ns (Ivpb) (Sodium Chloride 0.9%) (12/21/17 09:15) Contrast Received (Contrast Received) (12/21/17 09:45) Medications Given in ED Current Medications Medications Dose Ordered Sig/Bo Route Start Time Stop Time Status Last Admin Dose Admin Iohexol 100 ml ONCE ONCE IV 12/21/17 09:15 12/21/17 09:40 DC 12/21/17 09:58 100 ML Sodium Chloride 250 ml ONCE ONCE IV 12/21/17 09:15 12/21/17 09:40 DC 12/21/17 09:58 250 ML Sodium Chloride 1,000 ml @ 0 mls/hr Q0M ONCE IV 12/21/17 08:03 12/21/17 08:06 DC 12/21/17 08:22 1,000 MLS/HR Vital Signs/I&O 12/21/17 07:39 Temp 97.7 Pulse 70 Resp 18 B/P (MAP) 147/102 (117) Pulse Ox 100 Blood Pressure Mean: 117 Progress Progress Note : Progress Note Seen and evaluated. IV, labs, UA, normal saline 1 L bolus and fentanyl 50 g IV ordered for pain. Anticipate CT pending UA. 0850: CT abdomen and pelvis with contrast ordered due to the negative UA and concerns of appendicitis. 1030 : CT abdomen pelvis ordered with contrast. This is complete and does show colitis again. I did discuss with the patient about her need to follow-up with a surgeon of her choice for recheck and further evaluation including colonoscopy. Patient verbalize understanding. We will initiate ciprofloxacin for a week for treatment. Patient agrees. Patient is allergic to metronidazole. This was prescribed to her last incidence of colitis. Discharged home with return precautions. Patient verbalize understanding instructions and agreement with plan. Diagnostic Imaging Diagonstic Imaging: CT Plain Films/CT/US/NM/MRI: head Comments [facility] [place], [place] NAME: SHANNA CARRERA [facility] REC#: [id number] PT STATUS: REG ER : 1975 PHYSICIAN: CASIMIRO RAMIREZ MD ADMIT DATE: 12/21/17/ER Draft Date of Exam:12/21/17 CT ABD/PELV W (APPENDICITIS) PROCEDURE: CT abdomen and pelvis with contrast, rule out appendicitis. TECHNIQUE: Multiple contiguous axial images were obtained through the abdomen and pelvis after the administration of intravenous contrast. INDICATION: Pelvic pain. COMPARISON: 08/13/2017. FINDINGS: The appendix is air-containing and appears nondilated. Its wall is not thickened. Its visualization is greatest on axial image 79/series 2 and coronal imaging 33/series 4. There is some low-density thickening of the purvis of the colon throughout its length, suggestive of nonspecific colitis. There may be some edematous thickening of the purvis of the distal and terminal ileum as well. No bowel obstruction. No free air or perforation. No findings of an abscess. There is no hydronephrosis with lower pole right renal cortical cysts showing no complexity. The liver, spleen, adrenals, and pancreas are unremarkable. No pathological bile duct dilatation. There is a left ovarian follicular cyst. The uterus and right adnexa are normal. The urinary bladder is normal. IMPRESSION: Normal appearance of the appendix with unobstructed nonacute urinary tracts. Mild edematous thickening of the purvis of the colon diffusely is suspicious for nonspecific mild colitis without obstruction, abscess, or perforation. A left ovarian follicular cyst is likely physiologic. No other potential acute finding. Dictated on workstation # [id number] Dict: 12/21/17 1014 Trans: 12/21/17 1020 [id number] Interpreted by: DOREEN GARCIA Electronically signed by: Reviewed: Reviewed by Me Departure Impression Primary Impression: Colitis Disposition: HOME, SELF-CARE Condition: Stable Departure-Patient Inst. Decision time for Depature: 10:40 Referrals: ANGELINE HACKETT DO (PCP) Primary Care Physician NEELAM STEIN (Family) Primary Care Physician TOMMIE ADRIAN DO Patient Instructions: Acute Abdomen (Belly Pain), Adult (DC), Microscopic Colitis Add. Discharge Instructions: All discharge instructions reviewed with patient and/or family. Voiced understanding. Take medications as directed. Follow-up with your doctor this week for recheck. Follow-up with the surgeon listed or of your choice for recheck and further evaluation including possible colonoscopy as indicated. Return for worse pain, fever, vomiting, weakness, breathing problems or other concerns as needed. Scripts Ciprofloxacin HCl (Ciprofloxacin HCl) 500 Mg Tablet 500 MG PO BID, #14 TAB Prov: CASIMIRO RAMIREZ MD 12/21/17 Copy Copies To 1: TOMMIE ADRIAN TIMOTHY D MD Dec 21, 2017 08:52
[2017-12-21 09:04] LABS: ALANINE AMINOTRANSFERASE 19 U/L (0-55); ALBUMIN 4.8 GM/DL (3.2-4.5); ALKALINE PHOSPHATASE 79 U/L (40-136); BILIRUBIN,TOTAL 0.8 MG/DL (0.1-1.0); BUN/CREATININE RATIO 19; CALCIUM 9.7 MG/DL (8.5-10.1); CARBON DIOXIDE 26 MMOL/L (21-32); CHLORIDE 106 MMOL/L (98-107); CREATININE SERUM 0.69 MG/DL (0.60-1.30); GFR ESTIMATED > 60; GLUCOSE 84 MG/DL (70-105); POTASSIUM 3.7 MMOL/L (3.6-5.0); SODIUM 139 MMOL/L (135-145); TOTAL PROTEIN 7.7 GM/DL (6.4-8.2)
[2017-12-21] MEDS ORDERED: IOHEXOL 350 MG/ML 100 ML (OMNIPAQUE 350) VIAL IV ONE (09:15)
[2017-12-21] MEDS ORDERED: NS 250 ML (IVPB) BAG IV ONE (09:15)
[2017-12-21] MEDS ORDERED: RECEIVED CONTRAST (Hold Metformin) IV SCH (09:45)
--- NOTE | 2017-12-21 10:21 | Diagnostic Imaging Report ---
PROCEDURE: CT abdomen and pelvis with contrast, rule out appendicitis. TECHNIQUE: Multiple contiguous axial images were obtained through the abdomen and pelvis after the administration of intravenous contrast. INDICATION: Pelvic pain. COMPARISON: 08/13/2017. FINDINGS: The appendix is air-containing and appears nondilated. Its wall is not thickened. Its visualization is greatest on axial image 79/series 2 and coronal imaging 33/series 4. There is some low-density thickening of the purvis of the colon throughout its length, suggestive of nonspecific colitis. There may be some edematous thickening of the purvis of the distal and terminal ileum as well. No bowel obstruction. No free air or perforation. No findings of an abscess. There is no hydronephrosis with lower pole right renal cortical cysts showing no complexity. The liver, spleen, adrenals, and pancreas are unremarkable. No pathological bile duct dilatation. There is a left ovarian follicular cyst. The uterus and right adnexa are normal. The urinary bladder is normal. IMPRESSION: Normal appearance of the appendix with unobstructed nonacute urinary tracts. Mild edematous thickening of the purvis of the colon diffusely is suspicious for nonspecific mild colitis without obstruction, abscess, or perforation. A left ovarian follicular cyst is likely physiologic. No other potential acute finding. Dictated by: Dictated on workstation # [id number]
[2017-12-21] MEDS ORDERED: CIPR500T4 PO (10:42)
[2017-12-21 11:04] VITALS: BP 144/88
== END 2017-12-21 11:04 | disposition home or self-care (01) ==
LOC: EDUNIT# 07:30 → ER 07:34
DX: K52.9 Noninfective gastroenteritis and colitis, unspecified (principal); I10 Essential (primary) hypertension; F32.9 Major depressive disorder, single episode, unspecified; F17.210 Nicotine dependence, cigarettes, uncomplicated; Z98.51 Tubal ligation status; Z88.1 Allergy status to other antibiotic agents
CPT/HCPCS: 36415; 74177; 80053; 81000; 84703; 85025; 86141; 96374

== ENCOUNTER 2018-02-01 14:54 | Outpatient (CLI) | payer MEDICAID ==
[~2018-02-01] VITALS: Ht 160 cm; Wt 58.1 kg
[2018-02-01] MEDS ORDERED: FLUO20CA25 PO (15:06)
== END 2018-02-01 15:07 | disposition home or self-care (01) ==
LOC: PREOP 14:54
PROVIDERS: ATTEND Surgery
DX: Z01.818 Encounter for other preprocedural examination (principal)

== ENCOUNTER 2018-02-08 12:19 | Day surgery (SDC) | payer MEDICAID ==
[~2018-02-08] VITALS: Ht 160 cm; Wt 58.1 kg
[~2018-02-08 12:19] MED LIST changes: +FLUO20CA25 PO
--- OUTSIDE RECORDS SUMMARY | 2018-02-08 12:22 | XMS REPORT ---
Author Author NEELAM STEIN Organization [facility] Address [address] [place] [address] Care Team Providers Care Director Loan Name Role Phone NEELAM STEIN Unavailable PROBLEMS Type Condition ICD9-CM Code YUT51-MB Code Onset Dates Condition Status SNOMED Code Problem Encounter to establish care Z76.89 Active 675409832 Problem Status post cholecystectomy Z90.49 Active 982164557 Problem Esophageal spasm K22.4 Active 42029852 Problem Family history of diabetes mellitus Z83.3 Active 363236681 Problem Essential hypertension I10 Active 20264223 Problem Depression, unspecified depression type F32.9 Active 75103271 Problem Fatigue, unspecified type R53.83 Active 66891166 Problem Smoker unmotivated to quit F17.200 Active 98747461 Problem Shantelle F30.9 Active 494535989 Problem Abnormal mammogram of left breast R92.8 Active 442910617 Problem Gastroesophageal reflux disease without esophagitis K21.9 Active 537602350 Problem Intestinal malabsorption, unspecified K90.9 Active 76470245 Problem Anxiety F41.9 Active 90945691 ALLERGIES No Known Allergies ENCOUNTERS Encounter Location Date Diagnosis [facility] [address] [place] [address] [phone]- [phone] 14 Jan, 2018 [facility] [id number] [place] [address] [phone] -[phone] 04 Jan, 2018 Cough R05 ; Smoker unmotivated to quit F17.200 ; Congestion of upper airway J98.8 and Wheezing on both sides of chest R06.2 [facility] [id number] [place] [address] 79505- [phone] Dec, [facility] [address] [place] [address] 36069- 3110 Dec, Colitis K52.9 [facility] [id number] [place] [address] 17675- [phone] Nov, Depression, unspecified depression type F32.9 [facility] [id number] [place], [place] [phone]- [phone] Aug, Depression, unspecified depression type F32.9 [place] [id number] [place] [address] 24112- 5706 Aug, Colitis K52.9 and Shantelle F30.9 [place] [id number] [place] [address] 21743- 0113 Aug, Intestinal malabsorption, unspecified K90.9 [place] [id number] [place] [address] 48393- 8595 Jul, Intestinal malabsorption, unspecified K90.9 ; Diarrhea, unspecified R19.7 ; Anxiety F41.9 and Tobacco abuse Z72.0 [place] [id number] [place] [address] 52705- 1689 Jul, [facility] [place] [id number] [place] [phone] Jul, Diarrhea, unspecified type R19.7 [facility] [id number] [place] [address] [phone] -[phone] Jul, Diarrhea, unspecified type R19.7 [facility] [id number] [place] [address] [phone] May, Abnormal mammogram of left breast R92.8 [facility] [id number] [place] [address] [phone] Apr, Abnormal mammogram of left breast R92.8 [facility] [id number] [place] [address] [phone] Apr, [facility] [id number] [place] [address] [phone] 04 Apr, 2017 Well woman exam with routine gynecological exam Z01.419 ; Screening breast examination Z12.31 ; High risk sexual behavior Z72.51 ; History of loop electrical excision procedure (LEEP) Z98.890 and History of abnormal cervical Pap smear Z87.898 [place] [address] [address]17- 1167 15 Mar, 2017 Essential hypertension I10 [place] [address] 96059- 2092 13 Jan, 2017 Essential hypertension I10 and Family history of diabetes mellitus (DM) Z83.3 [place] [address] 94265- 9190 14 Jul, 2016 Gastroesophageal reflux disease without esophagitis K21.9 [place] [address] 19841- 8055 08 Jul, 2016 Status post cholecystectomy Z90.49 ; Essential hypertension I10 and Depression, unspecified depression type F32.9 [place] [address] 06963- 7803 10 Jun, 2016 [place] [address] 51688- 6498 07 Jun, 2016 Essential hypertension I10 [place] [address] 41177- 0615 07 Jun, 2016 [place] [id number] [place] [address] 84075- 0197 May, [place] [address] 72209- 0541 Apr, [place] [address] 78419- 6111 Apr, Other chest pain R07.89 ; Intractable vomiting with nausea, unspecified vomiting type R11.2 and Yeast vaginitis B37.3 [place] [id number] [place] [address] 85162- 5804 Apr, Other chest pain R07.89 [place] [address] 62981- 7115 Apr, Other chest pain R07.89 [facility] [address] [place] [address] 36122 -[phone] Apr, Bronchitis J40 [facility] [address] [place] [address] 88600- 0422 Dec, Essential hypertension I10 and Depression, unspecified depression type F32.9 [facility] [id number] [place] [address] [phone] Nov, Fatigue, unspecified type R53.83 and Essential hypertension I10 [place] [id number] [place] [address] 08589- 4144 Nov, Pelvic pain R10.2 and Menorrhagia with irregular cycle N92.1 [facility] [id number] [place] [address] 83645- 9375 Nov, Encounter to establish care Z76.89 ; Essential hypertension I10 ; Depression, unspecified depression type F32.9 ; Fatigue, unspecified type R53.83 and Family history of diabetes mellitus Z83.3 [place] [address] [place] [address] 66032- 1884 Oct, Menorrhagia with irregular cycle N92.1 [place] [id number] [place] [address] 05572- 8113 September, Pelvic pain R10.2 and Menorrhagia with irregular cycle N92.1 [place] [address] [place] [address] 24036- 1468 September, Pelvic pain R10.2 and Menorrhagia with irregular cycle N92.1 [place] [id number] [place] [address] 64315- 8858 Aug, Menorrhagia with irregular cycle N92.1 and Pelvic pain R10.2 IMMUNIZATIONS No Known Immunizations SOCIAL HISTORY Never Assessed REASON FOR VISIT Diarrhea f/u, reports some improvement. Having same issues and getting tired and weak. CBrumbackRN, medications verified with pt per history. Wants to discuss changing meds. PLAN OF CARE Activity Details Follow Up 1 Week Reason:diarrhea VITAL SIGNS Height 63 in 2017-08-12 Weight 132.4 lbs 2017-08-12 Temperature 98.8 degrees Fahrenheit 2017-08-12 Heart Rate 76 bpm 2017-08-12 Respiratory Rate 18 2017-08-12 BMI 23.45 kg/m2 2017-08-12 Blood pressure systolic 148 mmHg 2017-08-12 Blood pressure diastolic 92 mmHg 2017-08-12 MEDICATIONS Medication Instructions Dosage Frequency Start Date End Date Duration Status Wellbutrin SR 150 MG Orally Twice a day 1 tablet 12h Jul, 30 day(s) Active Ranitidine HCl 150 MG Orally twice a day 1 capsule at bedtime 12h Jul, 30 day(s) Active Zantac 150 MG Orally twice a day 1 tablet 12h Jul, 30 day(s) Not-Taking Toprol XL 50 MG TAKE ONE (1) TABLET BY MOUTH DAILY... 90 Active Cholestyramine 4 GM/DOSE Orally Twice a day 1 scoop 12h Jul, 10 days Active Diphenoxylate-Atropine 2.5-0.025 MG Orally Four times a day 1 tablet as needed 6h Jul, Aug, 10 days Active Ondansetron 4 MG Orally every 8 hrs 1 tablet on the tongue and allow to dissolve 8h 05 days Not-Taking RESULTS No Results PROCEDURES Procedure Date Ordered Result Body Site LAB NOT BILLED BY [facility] August 12, 2017 VENIPUNCT, ROUTINE* August 12, 2017 INSTRUCTIONS MEDICATIONS ADMINISTERED No Known Medications MEDICAL (GENERAL) HISTORY Type Description Date Medical History Hypertension Medical History Depression Medical History 04/28/17 Dense breast tissue, asymmetry inthe upper left breast, US recommended. Surgical History LEEP procedure Surgical History Tubal ligation Surgical History cholecystectomy 06/2016 Hospitalization History oral abcess
--- OUTSIDE RECORDS SUMMARY | 2018-02-08 12:22 | XMS REPORT ---
Author Author NEELAM STEIN Organization [facility] Address [address] [place] [address] Care Team Providers Care Weld Technician Name Role Phone NEELAM STEIN Unavailable PROBLEMS Type Condition ICD9-CM Code [id number] Code Onset Dates Condition Status SNOMED Code Problem Encounter to establish care Z76.89 Active 449444143 Problem Status post cholecystectomy Z90.49 Active 719322978 Problem Esophageal spasm K22.4 Active 75418488 Problem Family history of diabetes mellitus Z83.3 Active 283075131 Problem Essential hypertension I10 Active 17892493 Problem Depression, unspecified depression type F32.9 Active 67721442 Problem Fatigue, unspecified type R53.83 Active 95973108 Problem Smoker unmotivated to quit F17.200 Active 44468156 Problem Shantelle F30.9 Active 433990798 Problem Abnormal mammogram of left breast R92.8 Active 256812685 Problem Gastroesophageal reflux disease without esophagitis K21.9 Active 770476741 Problem Intestinal malabsorption, unspecified K90.9 Active 46347200 Problem Anxiety F41.9 Active 33801409 ALLERGIES Substance Reaction Event Type Date Status Flagyl anaphylaxis Drug Allergy Aug, Active ENCOUNTERS Encounter Location Date Diagnosis [facility] [id number] [place] [address] 24490- 6578 14 Jan, 2018 [facility] [address] [place] [address] 37352 -1058 04 Jan, 2018 Cough R05 ; Smoker unmotivated to quit F17.200 ; Congestion of upper airway J98.8 and Wheezing on both sides of chest R06.2 [facility] [address] [place] [address] 78152- 6796 Dec, [facility] [id number] [place] [address] 33823- 7187 Dec, Colitis K52.9 [facility] [id number] [place] [address] 71625- 3699 Nov, Depression, unspecified depression type F32.9 [facility] [id number] [place] [address] 59818- 0191 Aug, Depression, unspecified depression type F32.9 [facility] [id number] [place] [address] 20736- 6407 Aug, Colitis K52.9 and Shantelle F30.9 [facility] [id number] [place] [address] 65697- 9068 Aug, Intestinal malabsorption, unspecified K90.9 [facility] [id number] [place] [address] 83550- 0013 Jul, Intestinal malabsorption, unspecified K90.9 ; Diarrhea, unspecified R19.7 ; Anxiety F41.9 and Tobacco abuse Z72.0 [facility] [id number] [place] [address] 94726- 2482 Jul, [facility] [id number] [place] [address] [phone] Jul, Diarrhea, unspecified type R19.7 [facility] [id number] [place] [address] 07625 -9833 Jul, Diarrhea, unspecified type R19.7 [facility] [id number] [place] [address] [phone] May, Abnormal mammogram of left breast R92.8 [facility] [id number] [place] [address] [phone] Apr, Abnormal mammogram of left breast R92.8 [facility] [id number] [place] [address] [phone] Apr, [facility] [id number] [place] [address] [phone] Apr, Well woman exam with routine gynecological exam Z01.419 ; Screening breast examination Z12.31 ; High risk sexual behavior Z72.51 ; History of loop electrical excision procedure (LEEP) Z98.890 and History of abnormal cervical Pap smear Z87.898 [facility] [id number] [place] [address] 60353- 1130 15 Mar, 2017 Essential hypertension I10 [facility] [id number] [place] [address] 30425- 8751 13 Jan, 2017 Essential hypertension I10 and Family history of diabetes mellitus (DM) Z83.3 [facility] [address] 92131- 8808 14 Jul, 2016 Gastroesophageal reflux disease without esophagitis K21.9 [facility] [address] 92318- 0753 08 Jul, 2016 Status post cholecystectomy Z90.49 ; Essential hypertension I10 and Depression, unspecified depression type F32.9 [facility] [id number] [place] [address] 71717- 4070 10 Jun, 2016 [facility] [address] 00076- 1400 07 Jun, 2016 Essential hypertension I10 [facility] [id number] [place] [address] 16334- 5902 07 Jun, 2016 [facility] [id number] [place] [address] 17378- 0499 May, [facility] [id number] [place] [address] 61802- 0542 Apr, [facility] [address] 21817- 5821 Apr, Other chest pain R07.89 ; Intractable vomiting with nausea, unspecified vomiting type R11.2 and Yeast vaginitis B37.3 [facility] [id number] [place] [address] 63132- 2554 Apr, Other chest pain R07.89 [facility] [address] [address] 8197 Apr, Other chest pain R07.89 [facility] [id number] [place] [address] 08574 -4508 Apr, Bronchitis J40 [facility] [address] [place] [address] 28291- 6823 Dec, Essential hypertension I10 and Depression, unspecified depression type F32.9 [facility] [id number] [place] [address] [phone] Nov, Fatigue, unspecified type R53.83 and Essential hypertension I10 [facility] [id number] [place] [address] 52558- 1720 Nov, Pelvic pain R10.2 and Menorrhagia with irregular cycle N92.1 [facility] [id number] [place] [address] 36078- 9213 Nov, Encounter to establish care Z76.89 ; Essential hypertension I10 ; Depression, unspecified depression type F32.9 ; Fatigue, unspecified type R53.83 and Family history of diabetes mellitus Z83.3 [facility] [address] [place] [address] 97856- 1663 Oct, Menorrhagia with irregular cycle N92.1 [facility] [id number] [place] [address] 22613- 2969 September, Pelvic pain R10.2 and Menorrhagia with irregular cycle N92.1 [facility] [address] [place] [address] 89603- 5637 September, Pelvic pain R10.2 and Menorrhagia with irregular cycle N92.1 [facility] [id number] [place] [address] 29878- 2224 Aug, Menorrhagia with irregular cycle N92.1 and Pelvic pain R10.2 IMMUNIZATIONS No Known Immunizations SOCIAL HISTORY Never Assessed REASON FOR VISIT Diarrhea f/u, On wednesday was seen in the ER [facility] and was told see has acute Colistis-Buddy PAEZ PLAN OF CARE Activity Details Follow Up prn Reason: VITAL SIGNS Height 63 in 2017-08-19 Weight 131.8 lbs 2017-08-19 Temperature 98.6 degrees Fahrenheit 2017-08-19 Heart Rate 78 bpm 2017-08-19 Respiratory Rate 18 2017-08-19 BMI 23.34 kg/m2 2017-08-19 Blood pressure systolic 118 mmHg 2017-08-19 Blood pressure diastolic 80 mmHg 2017-08-19 MEDICATIONS Medication Instructions Dosage Frequency Start Date End Date Duration Status Toprol XL 50 MG TAKE ONE (1) TABLET BY MOUTH DAILY... 90 Active Diphenoxylate-Atropine 2.5-0.025 MG Orally Four times a day 1 tablet as needed 6h Jul, Aug, 10 days Active Wellbutrin SR 150 MG Orally Twice a day 1 tablet 12h Jul, 30 day(s) Active Zantac 150 MG Orally twice a day 1 tablet 12h Jul, 30 day(s) Not-Taking Ranitidine HCl 150 MG Orally twice a day 1 capsule at bedtime 12h Jul, 30 day(s) Active Ondansetron 4 MG Orally every 8 hrs 1 tablet on the tongue and allow to dissolve 8h 05 days Not-Taking Ciprofloxacin HCl Orally every 12 hrs 1 tablet 12h Active Hyoscyamine 0.125 by oral route every 6 hours PRN 1 tablet Active Prevalite 4 GM/DOSE Orally Twice a day 1 scoop 12h Aug, 10 days Not-Taking RESULTS No Results PROCEDURES No Known procedures INSTRUCTIONS MEDICATIONS ADMINISTERED No Known Medications MEDICAL (GENERAL) HISTORY Type Description Date Medical History Hypertension Medical History Depression Medical History 04/28/17 Dense breast tissue, asymmetry inthe upper left breast, US recommended. Surgical History LEEP procedure Surgical History Tubal ligation Surgical History cholecystectomy 06/2016 Hospitalization History oral abcess
--- OUTSIDE RECORDS SUMMARY | 2018-02-08 12:23 | XMS REPORT ---
Author Author NEELAM STEIN Organization [facility] Address [address] [place] [address] Care Team Providers Care Medical Office Supervisor Name Role Phone NEELAM STEIN Unavailable PROBLEMS Type Condition ICD9-CM Code UAT55-ED Code Onset Dates Condition Status SNOMED Code Problem Encounter to establish care Z76.89 Active 020890696 Problem Status post cholecystectomy Z90.49 Active 637849340 Problem Esophageal spasm K22.4 Active 32228813 Problem Family history of diabetes mellitus Z83.3 Active 541703657 Problem Essential hypertension I10 Active 70924881 Problem Depression, unspecified depression type F32.9 Active 52478361 Problem Fatigue, unspecified type R53.83 Active 19604350 Problem Smoker unmotivated to quit F17.200 Active 25876548 Problem Shantelle F30.9 Active 206914644 Problem Abnormal mammogram of left breast R92.8 Active 502662063 Problem Gastroesophageal reflux disease without esophagitis K21.9 Active 684878929 Problem Intestinal malabsorption, unspecified K90.9 Active 84152172 Problem Anxiety F41.9 Active 69918569 ALLERGIES Substance Reaction Event Type Date Status Flagyl anaphylaxis Drug Allergy Nov, Active ENCOUNTERS Encounter Location Date Diagnosis [facility] [address] [place] [address] 54001- 4020 14 Jan, 2018 [facility] [address] [place] [address] 27299 -5984 04 Jan, 2018 Cough R05 ; Smoker unmotivated to quit F17.200 ; Congestion of upper airway J98.8 and Wheezing on both sides of chest R06.2 [facility] [address] [place] [address] 60129- 0633 Dec, [facility] [id number] [place] [address] 09805- 4235 Dec, Colitis K52.9 [facility] [id number] [place] [address] 30852- 2153 Nov, Depression, unspecified depression type F32.9 [facility] [id number] [place] [address] 22665- 7390 Aug, Depression, unspecified depression type F32.9 [facility] [id number] [place] [address] 85660- 3115 Aug, Colitis K52.9 and Shantelle F30.9 [facility] [id number] [place] [address] 28790- 4905 Aug, Intestinal malabsorption, unspecified K90.9 [facility] [id number] [place] [address] 67521- 2260 Jul, Intestinal malabsorption, unspecified K90.9 ; Diarrhea, unspecified R19.7 ; Anxiety F41.9 and Tobacco abuse Z72.0 [facility] [id number] [place] [address] 93725- 6382 Jul, [facility] [id number] [place] [address] [phone] Jul, Diarrhea, unspecified type R19.7 [facility] [id number] [place] [address] 49550 -9873 Jul, Diarrhea, unspecified type R19.7 [facility] [id number] [place] [address] [phone] May, Abnormal mammogram of left breast R92.8 [facility] [id number] [place] [address] [phone] Apr, Abnormal mammogram of left breast R92.8 [facility] [id number] [place] [address] [phone] Apr, [facility] [id number] [place] [address] [phone] Apr, Well woman exam with routine gynecological exam Z01.419 ; Screening breast examination Z12.31 ; High risk sexual behavior Z72.51 ; History of loop electrical excision procedure (LEEP) Z98.890 and History of abnormal cervical Pap smear Z87.898 [facility] [id number] [place] [address] 27817- 2145 15 Mar, 2017 Essential hypertension I10 [facility] [id number] [place] [address] 93169- 2923 13 Jan, 2017 Essential hypertension I10 and Family history of diabetes mellitus (DM) Z83.3 [place] [facility] [address] 52570- 8176 14 Jul, 2016 Gastroesophageal reflux disease without esophagitis K21.9 [facility] [address] 26828- 0943 08 Jul, 2016 Status post cholecystectomy Z90.49 ; Essential hypertension I10 and Depression, unspecified depression type F32.9 [facility] [id number] [place] [address] 14324- 0153 10 Jun, 2016 [place] [address] 43363- 9399 07 Jun, 2016 Essential hypertension I10 [facility] [id number] [place] [address] 42651- 1620 07 Jun, 2016 [facility] [id number] [place] [address] 87749- 9992 May, [facility] [id number] [place] [address] 74095- 5212 Apr, [place] [address] 69816- 7094 Apr, Other chest pain R07.89 ; Intractable vomiting with nausea, unspecified vomiting type R11.2 and Yeast vaginitis B37.3 [facility] [id number] [place] [address] 72712- 7601 Apr, Other chest pain R07.89 [facility] [address], [place] [address]- 3291 Apr, Other chest pain R07.89 [facility] [id number] [place] [address] 81794 -6338 Apr, Bronchitis J40 [facility] [address] [place] [address] 11006- 4718 Dec, Essential hypertension I10 and Depression, unspecified depression type F32.9 [facility] [id number] [place] [address] [phone] Nov, Fatigue, unspecified type R53.83 and Essential hypertension I10 [facility] [id number] [place] [address] 25878- 3414 Nov, Pelvic pain R10.2 and Menorrhagia with irregular cycle N92.1 [facility] [id number] [place] [address] 99768- 1955 Nov, Encounter to establish care Z76.89 ; Essential hypertension I10 ; Depression, unspecified depression type F32.9 ; Fatigue, unspecified type R53.83 and Family history of diabetes mellitus Z83.3 [facility] [address] [place] [address] 06179- 1292 Oct, Menorrhagia with irregular cycle N92.1 [facility] [id number] [place] [address] 46739- 7239 September, Pelvic pain R10.2 and Menorrhagia with irregular cycle N92.1 [facility] [id number] [place] [address] 06323- 8224 September, Pelvic pain R10.2 and Menorrhagia with irregular cycle N92.1 [facility] [id number] [place] [address] 98288- 4923 Aug, Menorrhagia with irregular cycle N92.1 and Pelvic pain R10.2 IMMUNIZATIONS No Known Immunizations SOCIAL HISTORY Never Assessed REASON FOR VISIT Blood Pressure-JEANNINE lorenzana PLAN OF CARE Activity Details Follow Up 6 Months Reason:depression VITAL SIGNS Height 63 in 2017-11-24 Weight 130.6 lbs 2017-11-24 Temperature 98.8 degrees Fahrenheit 2017-11-24 Heart Rate 86 bpm 2017-11-24 Respiratory Rate 18 2017-11-24 BMI 23.13 kg/m2 2017-11-24 Blood pressure systolic 118 mmHg 2017-11-24 Blood pressure diastolic 82 mmHg 2017-11-24 MEDICATIONS Medication Instructions Dosage Frequency Start Date End Date Duration Status Prozac 20 mg Orally Once a day 1 capsule in the morning 24h Aug, 90 days Active Toprol XL 50 MG TAKE ONE (1) TABLET BY MOUTH DAILY... 90 Active Ranitidine HCl 150 MG Orally twice a day 1 capsule at bedtime 12h Jul, 30 day(s) Active Lomotil 2.5-0.025 MG Orally Four times a day 1 tablet as needed 6h Active RESULTS No Results PROCEDURES No Known procedures INSTRUCTIONS MEDICATIONS ADMINISTERED No Known Medications MEDICAL (GENERAL) HISTORY Type Description Date Medical History Hypertension Medical History Depression Medical History 04/28/17 Dense breast tissue, asymmetry inthe upper left breast, US recommended. Surgical History LEEP procedure Surgical History Tubal ligation Surgical History cholecystectomy 06/2016 Hospitalization History oral abcess
--- OUTSIDE RECORDS SUMMARY | 2018-02-08 12:26 | XMS REPORT | Continuity of Care Document ---
Author Author [facility] Organization [facility] Address Unknown Phone Unavailable Allergies Active Description Code Type Severity Reaction Onset Reported/Identified Relationship to Patient Clinical Status Yes No Known Drug Allergies [id number] Drug Allergy Unknown N/A 05/01/2016 Yes metronidazole [id number] Drug Allergy Unknown N/A 12/21/2017 Medications There is no data. Problems Date Dx Coded Attending Type Code Diagnosis Diagnosed By 10/04/2015 ELVIRA LE MD Ot N92.1 EXCESSIVE AND FREQUENT MENSTRUATION WITH 10/04/2015 ELVIRA LE MD Ot R10.2 PELVIC AND PERINEAL PAIN 10/16/2015 ELVIRA LE MD Ot N92.1 EXCESSIVE AND FREQUENT MENSTRUATION WITH 10/16/2015 ELVIRA LE MD Ot R10.2 PELVIC AND PERINEAL PAIN 12/20/2015 LEVIRA LE MD Ot N92.1 EXCESSIVE AND FREQUENT [...] PELVIC AND PERINEAL PAIN 05/01/2016 DOREEN FAY TRANSCRIPT CLERK Ot F17.210 NICOTINE DEPENDENCE, CIGARETTES, UNCOMPL 05/01/2016 DOREEN FAY TRANSCRIPT CLERK Ot R05 COUGH 05/01/2016 DOREEN FAY TRANSCRIPT CLERK Ot R07.89 OTHER CHEST PAIN 05/01/2016 ELVIRA LE MD Ot N92.1 EXCESSIVE AND FREQUENT MENSTRUATION WITH 05/01/2016 MIMI MD, ELVIRA N Ot R10.2 PELVIC AND PERINEAL PAIN 05/01/2016 MIMI ALLEN, ELVIRA Walton Ot N92.1 EXCESSIVE AND FREQUENT MENSTRUATION WITH 05/01/2016 MIMI ALLEN, ELVIRA Walton Ot R10.2 PELVIC AND PERINEAL PAIN 05/04/2016 DOREEN FAY TRANSCRIPT CLERK Ot F17.210 NICOTINE DEPENDENCE, CIGARETTES, UNCOMPL 05/04/2016 DOREEN FAY TRANSCRIPT CLERK Ot R05 COUGH 05/04/2016 DOREEN FAY TRANSCRIPT CLERK Ot R07.89 OTHER CHEST PAIN 05/15/2016 NEELAM STEIN FRESH FOOD MANAGER Ot R11.2 NAUSEA WITH VOMITING, UNSPECIFIED 05/15/2016 NEELAM STEIN FRESH FOOD MANAGER Ot R11.2 NAUSEA WITH VOMITING, UNSPECIFIED 05/21/2016 EHSAN ALLEN, SHERRI Escobar Ot K29.70 GASTRITIS, UNSPECIFIED, WITHOUT BLEEDING 05/21/2016 EHSAN ALLEN, SHERRI Escobar Ot R10.13 EPIGASTRIC PAIN 05/21/2016 EHSAN ALLEN, SHERRI Escobar Ot Z01.818 ENCOUNTER FOR OTHER PREPROCEDURAL EXAMIN 05/22/2016 SHERRI MOSER MD Ot R10.13 EPIGASTRIC PAIN 05/22/2016 EHSAN ALLEN, SHERRI Escobar Ot Z01.818 ENCOUNTER FOR OTHER PREPROCEDURAL EXAMIN 05/25/2016 EHSAN ALLEN, SHERRI Escobar Ot K29.70 GASTRITIS, UNSPECIFIED, WITHOUT BLEEDING 05/27/2016 NEELAM STEIN FRESH FOOD MANAGER Ot R11.2 NAUSEA WITH VOMITING, UNSPECIFIED 05/29/2016 NEELAM STEIN FRESH FOOD MANAGER Ot R11.2 NAUSEA WITH VOMITING, UNSPECIFIED 05/29/2016 NEELAM STEIN FRESH FOOD MANAGER Ot R11.2 NAUSEA WITH VOMITING, UNSPECIFIED 06/09/2016 NEELAM STEIN FRESH FOOD MANAGER Ot R11.2 NAUSEA WITH VOMITING, UNSPECIFIED 06/18/2016 EHSAN ALLEN, SHERRI Escobar Ot K82.8 OTHER SPECIFIED DISEASES OF GALLBLADDER 06/18/2016 EHSAN ALLEN, SHERRI Escobar Ot Z01.818 ENCOUNTER FOR OTHER PREPROCEDURAL EXAMIN 06/19/2016 SHERRI MOSER MD Ot K82.8 OTHER SPECIFIED DISEASES OF GALLBLADDER 06/19/2016 SHERRI MOSER MD Ot Z01.818 ENCOUNTER FOR OTHER PREPROCEDURAL EXAMIN 06/24/2016 EHSAN ALLEN, SHERRI Escobar Ot K81.1 CHRONIC CHOLECYSTITIS 06/24/2016 EHSAN ALLEN, [...] Ot R10.2 PELVIC AND PERINEAL PAIN 04/23/2017 NEELAM STEIN FRESH FOOD MANAGER Ot R11.2 NAUSEA WITH VOMITING, UNSPECIFIED 04/23/2017 NEELAM STEIN FRESH FOOD MANAGER Ot R11.2 NAUSEA WITH VOMITING, UNSPECIFIED 04/23/2017 EHSAN ALLEN, SHERRI Escobar Ot R10.13 EPIGASTRIC PAIN 04/23/2017 EHSAN ALLEN, SHERRI Escobar Ot Z01.818 ENCOUNTER FOR OTHER PREPROCEDURAL EXAMIN 05/13/2017 DEGRAFFENREID-LEIVA, SHERI L Ot Z12.31 ENCNTR SCREEN MAMMOGRAM FOR MALIGNANT NE 06/11/2017 DEGRAFFENREID-LEIVA, SHERI L Ot Z12.31 ENCNTR SCREEN MAMMOGRAM FOR MALIGNANT NE 06/15/2017 DEGRAFFENREID-LEIVA, SHERI L Ot R92.2 INCONCLUSIVE MAMMOGRAM 06/23/2017 DEGRAFFENREID-ELIVA, SHERI L Ot R92.2 INCONCLUSIVE MAMMOGRAM 08/13/2017 ELVIRA LE MD Ot N92.1 EXCESSIVE AND FREQUENT MENSTRUATION WITH 08/13/2017 ELVIRA LE MD Ot R10.2 PELVIC AND PERINEAL PAIN 08/13/2017 MIMI MD, ELVIRA N Ot N92.1 EXCESSIVE AND FREQUENT MENSTRUATION WITH 08/13/2017 MIMI ALLEN, ELVIRA N Ot R10.2 PELVIC AND PERINEAL PAIN 08/13/2017 NEELAM STEINP Ot R11.2 NAUSEA WITH VOMITING, UNSPECIFIED 08/13/2017 NEELAM STEIN FRESH FOOD MANAGER Ot R11.2 NAUSEA WITH VOMITING, UNSPECIFIED 08/13/2017 EHSAN ALLEN, SHERRI Escobar Ot R10.13 EPIGASTRIC PAIN 08/13/2017 EHSAN ALLEN, SHERRI Escobar Ot Z01.818 ENCOUNTER FOR OTHER PREPROCEDURAL EXAMIN 08/13/2017 DEGRAFFESAIMAEID-LEIVA, SHERI L Ot Z12.31 ENCNTR SCREEN MAMMOGRAM FOR MALIGNANT NE 08/13/2017 DEGRAFFESAMIAEIDebi-LEVIA, SHERI L Ot R92.2 INCONCLUSIVE MAMMOGRAM 08/13/2017 [...] STEFANI CISNEROS Ot Z98.51 TUBAL LIGATION STATUS 02/07/2018 TOMMIE ADRIAN DO Ot Z01.818 ENCOUNTER FOR OTHER PREPROCEDURAL EXAMIN Procedures There is no data. Results Test [...] RNA, TMA NOT DETECTED NOT DETECTED COMMENT [facility] SUREPATH PAP AND HPV mRNA E6/E7 - 04/19/17 17:31 CLINICAL INFORMATION: [facility] LMP: [id number] [facility] PREV. PAP: ABNL [facility] PREV. BX: NRG SOURCE: [employer]ervix NR STATEMENT OF ADEQUACY: [facility] INTERPRETATION/RESULT: [facility] HEALTH CARE LEGAL ASSISTANT: NRG HPV mRNA E6/E7, SUREPATH VIAL Not Detected NOT DETECTED REVIEW HEALTH CARE LEGAL ASSISTANT: NR INFECTION: NRG CULTURE, GENITAL - 04/19/17 [...] - 08/13/17 10:00 Lipase 32 U/L 8-78 Complete urinalysis with reflex to culture - 12/21/17 08:06 Urine color determination YELLOW NRG Urine clarity [...] count by microscopy (number/high power field ) RARE NRG Bacteria detection in urine sediment by light microscopy TRACE NRG Squamous epithelial cells detection in urine sediment by light microscopy 2-5 NRG Crystals detection in urine sediment by light microscopy NONE NRG Casts detection in urine sediment by light microscopy NONE NRG Mucus detection in urine sediment by light microscopy NEGATIVE NRG Complete urinalysis with reflex to culture NO NRG Urine beta human chorionic gonadotropin (hCG) measurement - 12/21/17 08:06 Urine beta human chorionic gonadotropin (hCG) measurement NEGATIVE NEGATIVE Complete blood count (CBC) with automated white blood cell (WBC) differential - 12/21/17 08:28 Blood leukocytes automated count (number/volume) 7.8 10*3/uL 4.3-11.0 Blood erythrocytes automated count (number/volume) 4.81 10*6/uL 4.35-5.85 Venous blood hemoglobin measurement (mass/volume) 11.1 g/dL 11.5-16.0 Blood hematocrit (volume fraction) 36 % 35-52 Automated erythrocyte mean corpuscular volume 74 [foz_us] 80-99 Automated erythrocyte mean corpuscular hemoglobin (mass per erythrocyte) 23 pg 25-34 Automated erythrocyte mean corpuscular hemoglobin concentration measurement ( mass/volume) 31 g/dL 32-36 Automated erythrocyte distribution width ratio 18.4 % 10.0-14.5 Automated blood platelet count (count/volume) 305 10*3/uL 130-400 Automated blood platelet mean volume measurement 10.2 [foz_us] 7.4-10.4 Automated blood neutrophils/100 leukocytes 71 % 42-75 Automated blood lymphocytes/100 leukocytes 16 % 12-44 Blood monocytes/100 leukocytes 9 % 0-12 Automated blood eosinophils/100 leukocytes 3 % 0-10 Automated blood basophils/100 leukocytes 1 % 0-10 Blood neutrophils automated count (number/volume) 5.5 10*3 1.8-7.8 Blood lymphocytes automated count (number/volume) 1.2 10*3 1.0-4.0 Blood monocytes automated count (number/volume) 0.7 10*3 0.0-1.0 Automated eosinophil count 0.3 10*3/uL 0.0-0.3 Automated blood basophil count (count/volume) 0.1 10*3/uL 0.0-0.1 Comprehensive metabolic panel - 12/21/17 08:28 Serum or plasma sodium measurement (moles/volume) 139 mmol/L 135-145 Serum or plasma potassium measurement (moles/volume) 3.7 mmol/L 3.6-5.0 Serum or plasma chloride measurement (moles/volume) 106 mmol/L 98-107 Carbon dioxide 26 mmol/L 21-32 Serum or plasma anion gap determination (moles/volume) 7 mmol/L 5-14 Serum or plasma urea nitrogen measurement (mass/volume) 13 mg/dL 7-18 Serum or plasma creatinine measurement (mass/volume) 0.69 mg/dL 0.60-1.30 Serum or plasma urea nitrogen/creatinine mass ratio 19 NRG Serum or plasma creatinine measurement with calculation of estimated glomerular filtration rate > NRG Serum or plasma glucose measurement (mass/volume) 84 mg/dL 70-105 Serum or plasma calcium measurement (mass/volume) 9.7 mg/dL 8.5-10.1 Serum or plasma total bilirubin measurement (mass/volume) 0.8 mg/dL 0.1-1.0 Serum or plasma alkaline phosphatase measurement (enzymatic activity/volume) 79 U/L 40-136 Serum or plasma aspartate aminotransferase measurement (enzymatic activity/ volume) 21 U/L 5-34 Serum or plasma alanine aminotransferase measurement (enzymatic activity/volume ) 19 U/L 0-55 Serum or plasma protein measurement (mass/volume) 7.7 g/dL 6.4-8.2 Serum or plasma albumin measurement (mass/volume) 4.8 g/dL 3.2-4.5 Serum or plasma C reactive protein measurement (mass/volume) - 12/21/17 08:28 Serum or plasma C reactive protein measurement (mass/volume) 0.11 mg /dL 0.00-0.50 Encounters ACCT No. Visit Date/Time Discharge Status Pt. Type Provider Facility Loc./Unit Complaint [id number] 02/01/2018 14:54:00 02/01/2018 15:07:00 DIS Outpatient TOMMIE ADRIAN DO [facility] PREOP COLONOSCOPY [id number] 08/13/2017 09:31:00 08/13/2017 13:47:00 DIS Emergency STEFANI CISNEROS [facility] ER STOMACH PAIN,DIAHRREA [id number] 06/11/2017 12:17:00 06/11/2017 23:59:59 CLS Outpatient DEGRAFFEROBERTDSHERI BARNARD [facility] RAD R92.8 ABNORMAL MAMMO [id number] 05/03/2017 09:14:00 05/03/2017 23:59:59 CLS Preadmit DEGRAFFESHERI PAULA [facility] RAD ABN MAMMO [id number] 04/23/2017 15:11:00 04/23/2017 23:59:59 CLS Outpatient DEGRAFFESHERI PAULA [facility] RAD SCREENING [id number] 06/24/2016 10:44:00 06/24/2016 16:40:00 DIS Outpatient SHERRI MOSER MD [facility] DYSKNESIA [id number] 06/18/2016 05:34:00 06/18/2016 14:09:00 DIS Outpatient SHERRI MOSER MD [facility] PREOP DYSKNESIA [id number] 05/28/2016 07:25:00 05/28/2016 23:59:59 CLS Outpatient NEELAM STEIN [facility] CARD INTRACTABLE VOMITING [id number] 05/21/2016 08:48:00 05/21/2016 11:50:00 DIS Outpatient SHERRI MOSER MD [facility] UPPER ABDOMINAL PAIN [id number] 05/20/2016 05:43:00 05/20/2016 23:59:59 CLS Outpatient SHERRI MOSER MD [facility] PREOP UPPER ABDOMINAL PAIN [id number] 05/14/2016 08:57:00 05/14/2016 23:59:59 CLS Outpatient NEELAM STEIN [facility] RAD INTRACTABLE VOMITING [id number] 05/01/2016 13:49:00 05/01/2016 15:58:00 DIS Emergency NYADOREEN APRN [facility] ER COUGH [id number] 12/02/2015 13:43:00 12/02/2015 23:59:59 CLS Outpatient ELVIRA LE MD [facility] RAD PELVIC PAIN,N92.1 [id number] 10/03/2015 12:37:00 10/03/2015 23:59:59 CLS Outpatient ELVIRA LE MD [facility] RAD PELVIC PAIN,MENORRHAGIA W /IRREGULAR CYCLE [id number] 02/08/2018 12:45:00 PEN Preadmit TOMMIE ADRIAN DO [facility] ENDO HX COLITIS/DIARRHEA/LLQ ABD PAIN [id number] 12/21/2017 08:38:00 Document Registration [id number] 05/05/2016 10:05:00 Document Registration [id number] 12/22/2017 11:40:00 12/22/2017 23:59:59 CLS Outpatient NEELAM STEIN APRN [facility] [id number] 08/02/2017 11:00:00 Document Registration [id number] 04/19/2017 17:31:00 Document Registration [id number] 04/19/2017 16:00:00 Document Registration
[2018-02-08] MEDS ORDERED: LACTATED RINGERS 1,000 ML IV ONE (12:28)
[2018-02-08] MEDS ORDERED: LACTATED RINGERS 1,000 ML IV STA (12:32)
[2018-02-08] MEDS ORDERED: PROPOFOL INJECTION 50 ML IV ONE (12:40)
[2018-02-08 12:43] VITALS: BP 118/81
--- NOTE | 2018-02-08 13:08 | Progress Note-Pre Operative ---
Pre-Operative Progress Note H&P Reviewed The H&P was reviewed, patient examined and no changes noted. Date Seen by Provider: Feb 08, 2018 Time Seen by Provider: 13:08 Date H&P Reviewed: Feb 08, 2018 Time H&P Reviewed: 13:08 Pre-Operative Diagnosis: llq abdominal pain, hx colitis, diarrhea TOMMIE ADRIAN DO Feb 08, 2018 13:08
[2018-02-08] MEDS ORDERED: proPOfol 200 MG/20 ML (DIPRIVAN) VIAL IV ONE (13:43)
--- NOTE | 2018-02-08 14:06 | Anesthesia-General Post-Op ---
MAC Patient Condition Mental Status/LOC: Same as Preop Cardiovascular: Satisfactory Nausea/Vomiting: Absent Respiratory: Satisfactory Pain: Controlled Complications: Absent Post Op Complications Complications None Follow Up Care/Instructions Patient Instructions None needed. Anesthesiology Discharge Order Discharge Order Patient is doing well, no complaints, stable vital signs, no apparent adverse anesthesia problems. No complications reported per nursing. ALINE YOON CRNA Feb 08, 2018 14:06
--- NOTE | 2018-02-08 14:06 | Progress Note-Post Operative ---
Post-Operative Progess Note Surgeon (s)/Safety Scientist (s) Surgeon TOMMIE ADRIAN DO Safety Scientist: na Pre-Operative Diagnosis llq abdominal pain, hx colitis, diarrhea Post-Operative Diagnosis colon polyps x 3 Procedure & Operative Findings Date of Procedure 02/08/18 Procedure Performed/Findings colonoscopy with hot bx polypectomy x 3 and random cold biopsies. Anesthesia Type per form block maker Estimated Blood Loss Estimated blood loss (mL): none Specimens/Packing Specimens Removed colon polyps transverse x 2 and sigmoid x1 and random cold biopsies TOMMIE ADRIAN DO Feb 08, 2018 14:06
--- NOTE | 2018-02-08 14:09 | Discharge Inst-Simple/Standard ---
Discharge Inst-Standard Patient Instructions/Follow Up Plan of Care/Instructions/FU: 2 weeks Joanne Activity as Tolerated: Yes Discharge Diet: Regular Diet (high fiber) TOMMIE ADRIAN DO Feb 08, 2018 14:09
[2018-02-08 14:20] VITALS: BP 118/81
[2018-02-08 14:50] VITALS: BP 118/81
--- NOTE | 2018-02-08 20:09 | OPERATIVE REPORT ---
DATE OF SERVICE: 02/08/2018 PREOPERATIVE DIAGNOSES: Left lower quadrant abdominal pain, history of colitis, diarrhea. POSTOPERATIVE DIAGNOSIS: Colon polyps x3. PROCEDURE: Colonoscopy with hot biopsy polypectomy x3 and random cold biopsies. SURGEON: Tommie Rubio DO ANESTHESIA: Per APPLIANCE WORKER. ESTIMATED BLOOD LOSS: None. COMPLICATIONS: None. INDICATIONS: The patient is a 42-year-old female with diarrhea and left lower quadrant abdominal pain with history of colitis. She was explained risks and benefits to have a colonoscopy performed. She understands risks and benefits and wished to proceed. Consent was signed on the chart. SPECIMENS: Colon polyps transverse x2 and sigmoid x1, and then random cold biopsies. PROCEDURE IN DETAIL: The patient was taken to the endoscopy suite, placed in left lateral recumbent position. Timeout was performed. Digital rectal exam was performed. There were no palpable polyps, masses or ulcerations. The scope was inserted in the rectum and advanced all the way to the cecum with minimal difficulty. Prep was adequate. There were no polyps, masses or ulcerations within the cecum and ascending colon. In the transverse colon, there were 2 polyps, which hot biopsy polypectomy was performed. Scope was continued to be slowly retracted back to the descending colon. No polyps, masses or ulcerations. In the sigmoid colon, polyp was present, which hot biopsy polypectomy was performed. Scope was continuously retracted back in the rectum, where it was also retroflexed noting no other pathology. Scope was returned to its normal position, slowly withdrawn until completely removed. As the scope was being withdrawn, multiple random cold biopsies were obtained. The patient tolerated the procedure well without any complications. She was taken to the recovery room in stable condition. RECOMMENDATIONS: The patient will need repeat colonoscopy in 5 years. If she has any problems prior to that, she should be reevaluated at that time. The patient will follow up in the office in 2 weeks to discuss pathology results. The patient recommended high-fiber diet. If any problems prior to the 5 year glenny for repeat colonoscopy, she should be reevaluated at that time. Job ID: [id number] DocumentID: [id number] Dictated Date: 02/08/2018 14:21:39 Nurse [facility] Date: 02/08/2018 20:08:53 Dictated By: TOMMIE RUBIO DO
== END 2018-02-08 14:55 | disposition home or self-care (01) ==
LOC: ENDO 12:19
PROVIDERS: ATTEND Surgery
DX: R19.7 Diarrhea, unspecified (principal); K63.5 Polyp of colon; R10.32 Left lower quadrant pain; I10 Essential (primary) hypertension; F17.210 Nicotine dependence, cigarettes, uncomplicated; Z79.899 Other long term (current) drug therapy
CPT/HCPCS: 84703

== ENCOUNTER → 2019-05-29 | Outpatient (CLI) | payer MEDICAID ==
[~2019-05-29] MED LIST changes: -FLUO20CA25 PO; +FLUO20CA45 PO; -METO-370 PO; +METO50TA7 PO; +METR-145 PO; -METR500T21 PO
--- NOTE | 2019-05-29 16:51 | Diagnostic Imaging Report ---
INDICATION: Headache and dizziness and visual changes. TECHNIQUE: Multiple contiguous axial images were obtained through the brain without the use of intravenous contrast. Auto Exposure Controls were utilized during the CT exam to meet ALARA standards for radiation dose reduction. COMPARISON: There is no previous study for comparison. FINDINGS: There are no extra-axial fluid collections. No intracranial hemorrhage. No intracranial mass or mass effect. No midline shift. The ventricles are normal in size and position. There are physiologic calcifications along the falx. Visualized portions of the sinuses and orbits are unremarkable. The mastoid air cells are well aerated. IMPRESSION: No acute intracranial abnormality is visualized. Dictated by: Dictated on workstation # [id number]
== END ==
LOC: RAD 16:17
PROVIDERS: ATTEND Nurse Practitioner Community Health
DX: G44.52 New daily persistent headache (NDPH) (principal)
CPT/HCPCS: 70450